=== PATIENT | female | born 1935 | race Caucasian/White ===

== ENCOUNTER 2020-10-21 11:33 | Outpatient (REF) | payer MEDICARE, SELFPAY | END 2020-10-21 11:34 | disposition home or self-care (01) | LOC: HO.LAB 11:33 | PROVIDERS: PCP Internal Medicine; Visit Provider Internal Medicine | DX: Z20.822 Contact with and (suspected) exposure to COVID-19 (principal) | CPT/HCPCS: 36415; C9803; U0003 ==

== ENCOUNTER 2020-12-02 12:53 | Outpatient (REF) | payer MEDICARE, SELFPAY ==
--- NOTE | ~2020-12-02 | MM_ITS ---
EXAMINATION: MM SCREENING DIGITAL BREAST TOMOSYNTHESIS, BILATERAL CLINICAL INFORMATION: Screening. Asymptomatic. The lifetime risk of breast cancer based on the Tyrer-Cuzick Model is 1%. COMPARISON: Mammography: 09/13/2019, 08/31/2018, 08/05/2017 TECHNIQUE: Digital breast tomosynthesis is performed in both the craniocaudal and mediolateral oblique views along with computer-aided detection (CAD). Synthesized 2D images are generated from the tomosynthesis. Additional left MLO view is provided. FINDINGS: There are scattered areas of fibroglandular density (ACR BI-RADS breast composition Category b). There are no significant masses, abnormal calcifications, or other abnormalities. There are 2 biopsy clip markers medial left breast. Parenchymal pattern is similar to prior studies. No significant changes. MM/MM tomosynthesis screening BI IMPRESSION: No mammographic evidence of malignancy. ASSESSMENT: BI-RADS 1: Negative RECOMMENDATION: Routine annual mammography screening. This patient's information was entered into a reminder system with a target due date for their next mammogram.
== END 2020-12-02 12:54 | disposition home or self-care (01) ==
LOC: HO.MAMMO 12:53
PROVIDERS: Visit Provider Internal Medicine
DX: Z12.31 Encounter for screening mammogram for malignant neoplasm of breast (principal)
CPT/HCPCS: 77063; 77067

== ENCOUNTER → 2021-06-20 09:11 | Outpatient (BNVA) | payer MEDICARE, SELFPAY | PROVIDERS: PCP Internal Medicine; Visit Provider Surgery | DX: N63.20 Unspecified lump in the left breast, unspecified quadrant (principal) | CPT/HCPCS: 99212 ==

== ENCOUNTER 2021-09-29 11:29 | Outpatient (REF) | payer MEDICARE, SELFPAY ==
[2021-09-29 16:11] LABS: CDiff Gene PCR NEGATIVE (Negative)
== END 2021-09-29 11:30 | disposition home or self-care (01) ==
LOC: HO.LAB 11:29
PROVIDERS: Visit Provider Internal Medicine
DX: R19.7 Diarrhea, unspecified (principal); K92.1 Melena
CPT/HCPCS: 36415; 87493

== ENCOUNTER 2021-10-07 07:28 | Outpatient (REF) | payer MEDICARE, SELFPAY ==
--- NOTE | ~2021-10-07 | CT_ITS ---
EXAMINATION: CT ABDOMEN AND PELVIS WITHOUT CONTRAST CLINICAL INFORMATION: Abdominal pain. COMPARISON: Pelvic ultrasound January 2018. TECHNIQUE: Multidetector volumetric imaging was performed from the superior aspect of the liver through the pubic symphysis. Sagittal and coronal reformatted images were obtained on the technologist's workstation. This CT examination was performed using dose optimization techniques as appropriate, variously including the following: *Automated exposure control *Adjustment of mA and/or kV according to patient size (this includes techniques or standardized protocols for targeted exams where dose is matched to indication/reason for exam; i.e. extremities or head) *Use of iterative reconstruction technique DLP: 482 mGy-cm FINDINGS: LUNG BASES: The visualized lung bases are unremarkable. LIVER, GALLBLADDER, AND BILIARY TREE: The liver is normal in size, shape, and attenuation. No focal hepatic lesion or biliary ductal dilatation is present. The gallbladder is unremarkable with no evidence of radiopaque gallstones, gallbladder wall thickening, or obvious pericholecystic inflammatory changes. PANCREAS: Unremarkable. SPLEEN: Unremarkable. ADRENAL GLANDS: Unremarkable. KIDNEYS AND URETERS: There is a small 2 mm stone in the mid right kidney. There is mild right hydronephrosis. The right ureter does not appear dilated. No right ureteral stone is seen. The left kidney is unremarkable. BLADDER: Not optimally distended. GASTROINTESTINAL TRACT: There is mild diverticulosis of the colon. No evidence of diverticulitis is seen. There is question of mild wall thickening/colitis of the colon, particularly involving the distal colon. The small and large bowel are otherwise unremarkable. The appendix is unremarkable. ABDOMINAL WALL: No significant hernia is appreciated. LYMPH NODES: Normal. VASCULAR: Unremarkable. PELVIC VISCERA: The left ovary appears prominent measuring 3.3 cm. There is question of a complex left ovarian cyst with thick echogenic wall. This is a new finding from previous ultrasound. The endometrium appears prominent measuring 6 to 7 mm. Endometrial thickening appears decreased compared to previous ultrasound. OSSEOUS STRUCTURES: There is a scoliosis and degenerative changes of the spine. CT/CT abdomen pelvis wo con IMPRESSION: Small right renal stone. Mild right hydronephrosis. No right ureteral dilatation or ureteral stone seen. Diverticulosis of the colon. Question mild colitis. Question 3 cm complex left adnexal cyst. This could be better evaluated with pelvic ultrasound. Prominent endometrium for a postmenopausal patient. This could be better evaluated with ultrasound as well. Fleischner guidelines were followed.
[2021-10-07] MEDS: Barium Sulfate Oral (Vanilla) 450 ML ORAL.SUSP 900 ML PO (10:18)
== END 2021-10-07 07:29 | disposition home or self-care (01) ==
LOC: HO.CT 07:28
PROVIDERS: PCP Internal Medicine; Visit Provider Internal Medicine
DX: R10.84 Generalized abdominal pain (principal)
CPT/HCPCS: 74176

== ENCOUNTER 2021-10-08 17:48 | Outpatient (REF) | payer MEDICARE, SELFPAY | END 2021-10-08 17:49 | disposition home or self-care (01) | LOC: HO.LNP 17:48 | PROVIDERS: Visit Provider Internal Medicine | DX: R10.9 Unspecified abdominal pain (principal); R19.7 Diarrhea, unspecified | CPT/HCPCS: 87045; 87046 ==

== ENCOUNTER 2021-10-21 15:07 | Outpatient (REF) | payer MEDICARE, SELFPAY ==
--- NOTE | ~2021-10-21 | US_ITS ---
EXAMINATION: US PELVIS CLINICAL INFORMATION: Followup thickened endometrium seen on CT scan. COMPARISON: Previous CT scan of the abdomen and pelvis 10/07/2021 and pelvic ultrasound January 2018 TECHNIQUE: Ultrasound of the pelvis is performed using both transabdominal and transvaginal transducers along with Doppler. Transvaginal imaging is performed due to inadequate visualization transabdominally. FINDINGS: The uterus is anteverted and measures 6.8 x 3.7 x 5 cm in dimension. No focal uterine lesion is seen. The endometrium appears abnormally thickened for a postmenopausal patient measuring up to 1.3 cm. This is heterogeneous with multiple small cystic areas. Previously, the endometrial thickness measured 1.9 cm and was homogeneous-appearing. No focal uterine lesion is seen. There are small nabothian cysts in the cervix. The right ovary measures 2.8 x 1.6 x 2.1 cm. There are 2 right ovarian cysts. There is a 1.6 x 1.1 x 1 cm simple ovarian cyst and a 1.7 x 1 x 1.6 cm slightly complex cyst with a septation. The left ovary measures 2.5 x 2.1 x 2.7 cm. There is a complex left ovarian cyst with several thickened septations and thickened wall. This measures approximately 1.7 x 2 x 2. There is no fluid in the pelvis. US/US pelvic and transvaginal IMPRESSION: Thickened heterogeneous-appearing endometrium. Bilateral complex ovarian cysts, left greater than right, new from previous exams. HAND TRUCKER consultation recommended.
== END 2021-10-21 15:08 | disposition home or self-care (01) ==
LOC: HO.HMGCX 15:07
PROVIDERS: PCP Internal Medicine; Visit Provider Internal Medicine
DX: R93.89 Abnormal findings on diagnostic imaging of other specified body structures (principal)
CPT/HCPCS: 76830; 76856

== ENCOUNTER 2021-12-04 10:48 | Outpatient (REF) | payer MEDICARE, SELFPAY ==
--- NOTE | ~2021-12-04 | MM_ITS ---
EXAMINATION: MM SCREENING DIGITAL BREAST TOMOSYNTHESIS, BILATERAL CLINICAL INFORMATION: Screening. Asymptomatic. COMPARISON: Mammography: 12/02/2020, 09/13/2019, 08/31/2018, 08/05/2017, 07/16/2016 TECHNIQUE: Digital breast tomosynthesis is performed in both the craniocaudal and mediolateral oblique views along with computer-aided detection (CAD). Synthesized 2D images are generated from the tomosynthesis. FINDINGS: There are scattered areas of fibroglandular density (ACR BI-RADS breast composition Category b). The left breast shows no significant changes from prior exams. There are 2 biopsy clip markers inner quadrant. Neither breast shows abnormal calcifications. The axilla and skin contours are unremarkable. The right breast has new oval lesion with incompletely defined margins posterior upper outer quadrant measuring approximately 0.9 x 0.7 cm. There may be small subtle satellite lesion inferior medial to the lesion. Patient will be recalled for additional imaging. MM/MM tomosynthesis screening BI IMPRESSION: 1. Right: New 0.9 cm oval lesion with incompletely defined margins posterior upper outer quadrant, possible smaller satellite lesion in this area. 2. Left: No mammographic evidence of malignancy. ASSESSMENT: BI-RADS 0: Incomplete - Need Additional Imaging Evaluation RECOMMENDATION: 1. Additional views of the right breast (spot exaggerated CC, spot MLO). 2. Targeted ultrasound right breast. 3. Radiology department staff will contact the patient for additional imaging. This patient's information was entered into a reminder system with a target due date for their next mammogram.
== END 2021-12-04 10:49 | disposition home or self-care (01) ==
LOC: HO.MAMMO 10:48
PROVIDERS: Absent Provider Surgery; PCP Internal Medicine; Visit Provider Internal Medicine
DX: Z12.31 Encounter for screening mammogram for malignant neoplasm of breast (principal)
CPT/HCPCS: 77063; 77067

== ENCOUNTER 2021-12-10 13:03 | Outpatient (REF) | payer MEDICARE, SELFPAY ==
--- NOTE | ~2021-12-10 | MM_ITS ---
EXAMINATION: MM DIAGNOSTIC DIGITAL BREAST TOMOSYNTHESIS, RIGHT US DIAGNOSTIC ULTRASOUND BREAST, RIGHT CLINICAL INFORMATION: Recall from screening for 0.9 cm oval lesion with incompletely defined margins posterior upper outer right breast with possible smaller satellite lesion. Age 86. Family history breast cancer, mother. COMPARISON: Mammography: 12/04/2021, 12/02/2020, 09/13/2019, 08/31/2018 TECHNIQUE: Digital breast tomosynthesis is performed. 2D images are generated from the tomosynthesis. The following views are obtained: Spot exaggerated CC, spot MLO. Ultrasound right breast is targeted to the posterior upper outer breast. Additional imaging also performed right axilla. Grayscale imaging and color Doppler are performed without and with harmonics. FINDINGS: There are scattered areas of fibroglandular density (ACR BI-RADS breast composition Category b). The additional views confirm a smooth 0.8 cm nodule posterior upper outer right breast representing change from prior studies. There is no additional satellite lesion in this area. No architectural abnormality. Ultrasound demonstrates an oval nodule 9:00 position 8-9 cm from nipple measuring approximately 0.9 x 0.7 x 0.6 cm. There is mild increased through-transmission of sound. Color flow is seen within the lesion consistent with solid lesion. No associated duct ectasia. No posterior shadowing. Additional imaging right axilla shows no lymphadenopathy. Results are discussed with the patient and her daughter at time of visit. Recommend ultrasound-guided core sampling of the nodule. MM/MM tomosynthesis added views R IMPRESSION: Nonspecific solid nodule posterior upper outer breast measuring approximately 0.9 cm. ASSESSMENT: BI-RADS 4: Suspicious RECOMMENDATION: Ultrasound-guided core biopsy nodule right breast.
== END 2021-12-10 13:04 | disposition home or self-care (01) ==
LOC: HO.MAMMO 13:03
PROVIDERS: Visit Provider Internal Medicine
DX: N63.11 Unspecified lump in the right breast, upper outer quadrant (principal)
CPT/HCPCS: 76642; 77061; 77065

== ENCOUNTER 2021-12-12 09:23 | Outpatient (REF) | payer MEDICARE, SELFPAY ==
--- NOTE | ~2021-12-12 | MM_ITS ---
PROCEDURE: US GUIDED BREAST BIOPSY, RIGHT CLINICAL INFORMATION: Hypoechoic mass 9:00 position 8 cm from the nipple right breast. COMPARISON: December 10, 2021 and December 04, 2021 PROCEDURAL DETAILS: The details of the procedure, as well as the risks, benefits, and alternatives to the procedure were explained to the patient in detail and all of her questions were answered, after which written informed consent was obtained. Site and side were confirmed. Prior to the procedure, sonography revealed a circumscribed hypoechoic lesion not o'clock position of the right breast. A time-out was performed, the lesion intended for biopsy was targeted, and the skin of the right breast was then prepped and draped in the usual sterile fashion. Using sonographic guidance, sterile technique, and 1% lidocaine without epinephrine for local anesthesia, multiple automated core biopsies were obtained through the targeted area with a 14G spring loaded Achieve core biopsy device. There was real-time confirmation of appropriate needle passage. Sampling was documented. At the completion of tissue sampling, a single butterfly-shaped metallic clip was deposited at the biopsy site. There was no evidence of immediate complication. SPECIMEN: An appropriate sample was obtained. DIGITAL POST-PROCEDURE MAMMOGRAPHY: Breast density: The tissue contains scattered areas of fibroglandular density. BI-RADS version 5, category B. There are no new mammographic findings demonstrated. The postprocedure 2-view direct digital mammogram reveals satisfactory positioning of the biopsy clip. The patient tolerated the procedure well and, after assuring adequate hemostasis, was discharged in good condition after reviewing postbiopsy breast care instructions. Final pathology results are pending. MM/MM diagnostic mammo unilat RT IMPRESSION: 1. No immediate complication from ultrasound-guided percutaneous biopsy right breast. 2. Ultrasound was used to localize and guide marker clip placement. 3. The 2-view direct digital postprocedure mammogram reveals satisfactory positioning of the biopsy clip. 4. Final pathology results are pending. A separate report with final recommendations will be issued once these results are made available.
[2021-12-12] MEDS: Lidocaine HCl 1 % 20 ML VIAL 10 ML SUBCUT (11:02)
[2021-12-12] MEDS: Sodium Bicarbonate 8.4% 50 MEQ/50 ML VIAL SUBCUT (11:03)
== END 2021-12-12 09:24 | disposition home or self-care (01) ==
LOC: HO.MAMMO 09:23
PROVIDERS: Visit Provider Surgery
DX: R92.8 Other abnormal and inconclusive findings on diagnostic imaging of breast (principal); N63.15 Unspecified lump in the right breast, overlapping quadrants
CPT/HCPCS: 19083; 77065; 88305; 88360; 99212

== ENCOUNTER 2021-12-29 08:36 | Day surgery (SDC) | payer MEDICARE, SELFPAY ==
--- NOTE | 2021-12-26 11:48 | P.CONAN_ITS ---
Documented by User: Shandra Hammond NP 12/26/21 11:49 HPI - Anesthesia Eval Consult details Narrative: 86yo F for Right Breast Lumpectomy/Needle Loc, [place] Node Biopsy PMFSH Active Problems Active Problems: All Active Problems (Updated 12/12/21 @ 09:05 by Mitchell Rothman MD) Abnormal ultrasound of breast (Acute) Left breast mass (Acute) Family History Family History Father Prostate cancer Mother Breast cancer Family/Other Breast cancer, Onset Age: 50 Surgical History Surgical History History of dilation and curettage History of left breast biopsy (05/06/12) History of lumpectomy of left breast (03/19/11) Social History Social History Alcohol intake: never Patient Tobacco Use Status: Never used Tobacco Use of substances other than those prescribed or required for medical reasons: No Are you DNR?: No Advance Directives: No Advance Directives Information Provided: Yes Meds Allergies Allergy/AdvReac Type Severity Reaction Status Date / Time adhesive tape Allergy Unknown rash Uncoded 12/29/21 09:31 Home Medications Medication Instructions Recorded Confirmed Last Taken Type atenolol 50 mg tablet 50 mg PO DAILY 06/20/21 12/12/21 12/29/21 07:00 History atorvastatin 10 mg tablet 10 mg PO DAILY 06/20/21 12/12/21 12/29/21 07:00 History lisinopril 10 mg tablet 10 mg PO DAILY 06/20/21 12/12/21 12/29/21 07:00 History Exam Exam Date and Time: December 26, 2021 114 Assessment and Plan Assessment Anesthesia Assessment: Chart Reviewed Documented by User: Nimesh Shelby MD 12/29/21 13:16 PMFSH Family History Family History Father Prostate cancer Mother Breast cancer Family/Other Breast cancer, Onset Age: 50 Family history of problems with anesthesia: No Surgical History Surgical History History of dilation and curettage History of left breast biopsy (05/06/12) History of lumpectomy of left breast (03/19/11) History of Problems with Anesthesia: No Social History Social History Alcohol intake: never Patient Tobacco Use Status: Never used Tobacco Use of substances other than those prescribed or required for medical reasons: No Are you DNR?: No Advance Directives: No Advance Directives Information Provided: Yes Meds Allergies Allergy/AdvReac Type Severity Reaction Status Date / Time adhesive tape Allergy Unknown rash Uncoded 12/29/21 09:31 Home Medications Medication Instructions Recorded Confirmed Last Taken Type atenolol 50 mg tablet 50 mg PO DAILY 06/20/21 12/12/21 12/29/21 07:00 History atorvastatin 10 mg tablet 10 mg PO DAILY 06/20/21 12/12/21 12/29/21 07:00 History lisinopril 10 mg tablet 10 mg PO DAILY 06/20/21 12/12/21 12/29/21 07:00 History Exam Airway Mallampati Class: II TM Dist: >3cm Neck ROM: Full Loose/Missing/Broken Teeth: No Heart: [id number] Lungs: cta b/l Assessment and Plan Assessment Anesthesia Assessment: Anesthesia Plan Discussed Final Anesthetic Review Family History of Problems with Anesthesia: No History of Problems with Anesthesia: No NPO: Yes ASA Class: III Final Preanesthetic Review: No Changes in Pt Med Stat, Meds/Allgs Chart Reviewed, Consent Obtained/Reviewed and Anes Risks/Benef Reviewed Patient Risk: Intermediate Procedure Risk: Low Assessment/Block/Sedation in SS: Assess/Block/Sedation-SS Anesthetic Plan Anesthetic Plan: GA and Agree w/ Assess. and Plan Disposition: Standard PACU
[2021-12-29] VITALS (7 sets, daily range): BP systolic 138–188; BP diastolic 63–77; PULSE 47–62; RESP 16; TEMP 36.3; O2SAT 95–99; BMI 33.0
--- NOTE | ~2021-12-29 | NM_ITS ---
PROCEDURE: NM LYMPH SCINTIGRAPHY CLINICAL INFORMATION: Right breast mucinous carcinoma. COMPARISON: None TECHNIQUE: Following explaining right breast lymph node procedure, benefits and risk, a written consent was obtained from the patient. 4% lidocaine cream was applied around the right breast areola 30 minutes prior to the procedure. Patient arrived in nuclear medicine department. The area around the right breast was cleaned in usual sterile manner. 4 vials of 0.125 mL Lymphoseek was injected in 4 quadrants around the right breast areola and imaging obtained approximately 30 minutes later. Patient tolerated procedure extremely well. FINDINGS: There are 4 areas of isotope activity in the 4 quadrants around the right breast areola. There is dominant solitary lymph node activity seen in the right axilla. There are additional small areas of activity seen in the right anterior axilla. NM/NM sentinel node w imaging IMPRESSION: Right breast lymphoscintigraphy reveals a dominant sentinel node right anterior axilla and several smaller areas of activity in the right axilla.
--- NOTE | ~2021-12-29 | MM_ITS ---
EXAMINATION: MM MAMMOGRAM GUIDED NEEDLE LOCALIZATION BREAST, RIGHT MM NEEDLE LOCALIZATION SPECIMEN FROM THE RIGHT BREAST CLINICAL INFORMATION: Recent diagnosis mucinous carcinoma posterior upper outer right breast. COMPARISON: 12/04/2021, 12/10/2021, 12/12/2021; ultrasound right breast 12/10/2021, ultrasound-guided biopsy right breast 12/12/2021. TECHNIQUE NEEDLE LOC: Proper informed consent is obtained from the patient after discussion of the procedure, potential risks and complications, and alternatives including declining the procedure today. Patient was given an opportunity for questions. The patient appeared to understand. The patient consented to the procedure and signed the consent form. GUIDANCE: Digital mammography. APPROACH: Lateral Medial. TARGET: Nodule with HydroMARK butterfly clip marker.. ANESTHESIA: Carbonated lidocaine 1%: 5 mL. LOCALIZATION MARKER: [place] MammaLok. 5 cm length. The skin is prepped and local anesthesia administered. The needle is positioned and position assessed with mammography. The wire is hooked into position. Nash needle protector placed. The patient tolerated the procedure well and had no immediate complication. Following the procedure, 4% lidocaine ointment was administered to the right areola and covered with Tegaderm in anticipation of nuclear lymphoscintigraphy injection for sentinel lymph node mapping, described in separate report. Preliminary procedure results called to medical assistant internal medicine (Tete) for Dr. Rothman. TECHNIQUE SPECIMEN RADIOGRAPH: Imaging of the excised specimen is performed using digital mammography in 1 view. FINDINGS SPECIMEN RADIOGRAPH: The specimen shows the needle and hookwire are delivered intact. The biopsy clip marker is identified in the specimen adjacent to the localization needle/wire. Results were called to Dr. Mitchell Rothman in the operating room at the time of imaging. MM/MM needle loc RT IMPRESSION: 1. Status post right breast needle localization with wire hooked into position. 2. Post operative specimen radiograph obtained.
[2021-12-29] MEDS: Lactated Ringers 1,000 ML 100 ML IVCONT (10:16)
--- NOTE | 2021-12-29 10:49 | MHC.SHP ---
Pre-Procedural Eval Section A Date of Service: 12/29/21 The patient is an INPATIENT: No Changes since office visit: Yes Patient answered all questions; No Cold of Flu in the past 2 weeks, No New Medical Problems and No Changes in Medication The History & Physical has been completed within 30 days and I have reviewed it.: Yes Section B Chief Complaint: Malignant neoplasm site of right breast Allergies: Allergies Allergy/AdvReac Type Severity Reaction Status Date / Time adhesive tape Allergy Unknown rash Uncoded 12/29/21 09:31 Plan Diagnosis/Plan: Unchanged I have reviewed the history and physical and performed a pertinent physical examination on my patient. No changes have occurred unless specified.
[2021-12-29] MEDS: Lidocaine HCl 1 % 20 ML VIAL 9 ML SUBCUT (11:18)
[2021-12-29] MEDS: Sodium Bicarbonate 8.4% 50 MEQ/50 ML VIAL SUBCUT (11:18)
--- NOTE | 2021-12-29 14:37 | W.PM.OPN ---
Operative Note Operative Note Date of Service: 12/29/21 Narrative: Preoperative diagnosis:Mucinous carcinoma right breast Postoperative diagnosis: same Procedure: right breast lumpectomy with needle localization, sentinel node biopsy right axilla Surgeon: Mitchell Rothman MD Supervisor Pipe Finishing: Abiola Oneill PA-C Anesthesia: general LMA Indications for procedure: 86-year-old female patient found to have a small density in the upper outer quadrant of the right breast felt to be suspicious for malignancy. Subsequent ultrasound guided core biopsy confirmed a mucinous carcinoma a right breast. She presents today for right breast lumpectomy with needle localization, right axillary sentinel node biopsy. Operative findings: Specimen x-ray confirms the marking clip within the specimen. Gross pathology confirmed the tumor within the specimen with negative margins. Specimen: 1. Right breast lumpectomy, 2. [place] node 1, 3. Anterior margin right breast Estimated blood loss: 5 mL Complications: none Procedure details: patient was brought to the OR placed in a supine position. After administering general anesthesia the patient's right breast was prepped with ChloraPrep and draped in a sterile fashion. A surgical time-out was called the consent confirmed. Patient received preoperative antibiotics and Venodyne boots were in place. Local anesthesia consisting of 0.5% Sensorcaine was then infiltrated around the localizing needle in the upper outer quadrant. A curvilinear incision was made to include the needle track in the upper outer quadrant. This incision was then carried down through subcutaneous tissue. Superior inferior skin flaps were then created with electrocautery. A core of tissue surrounding the localizing needle was then performed beginning at the superior margin, anterior margin, medial margin, inferior margin, lateral margin, then posterior margin. Lesion was marked and sent to pathology for further examination. An additional anterior margin was obtained and sent as a separate specimen as the marking clip appeared very close to the margin. Using the gamma probe area of activity was noted in the axilla. This was very close to the initial breast incision. Dissection was continued into the axilla past the clavipectoral fascia. An area of increased activity was identified and grasped with an Allis clamp. This was then excised using electrocautery. This had have counts of approximately 1200 and was sent as sentinel node 1. Examination of the axilla revealed no other radio activity. No other palpable nodes could be identified. Axilla was examined up into the level 2 nodes. Once confirmation was received from the pathology department at the margins were clear, the wounds were irrigated with saline solution and suctioned dry. Wounds were checked for hemostasis. the clavipectoral fascia was then reapproximated using interrupted 3-0 Polysorb sutures. Deep breast tissue was also reapproximated using interrupted 3-0 Polysorb sutures. Skin dermis was then reapproximated using interrupted 3-0 Polysorb sutures. Skin was then reapproximated in a subcuticular fashion using a running 4-0 Polysorb suture. Sterile dressings consisting of Steri-Strips, 2 x 2 gauze and Tegaderm were then applied. The patient tolerated the procedure well. Sponge, instrument, and needle counts reported as correct. The patient was transferred to PACU in stable condition.
== END 2021-12-29 16:16 | disposition home or self-care (01) ==
PROVIDERS: PCP Internal Medicine; Visit Provider Surgery
PROC: (CPT 19301; principal; 2021-12-29 13:10)
PROC: (CPT 19301; 2021-12-29 13:10)
DX: C50.411 Malignant neoplasm of upper-outer quadrant of right female breast (principal); Z17.0 Estrogen receptor positive status [ER+]; Z91.040 Latex allergy status; Z86.018 Personal history of other benign neoplasm; Z98.890 Other specified postprocedural states; Z79.899 Other long term (current) drug therapy
CPT/HCPCS: 19301; 38525; 19281; 78195; 88305; 88307; 88329; 88342; A4648; A9520; J0131; J0690; J1100; J2405; J3010

== ENCOUNTER → 2022-01-01 15:00 | Outpatient (BNVA) | payer MEDICARE, SELFPAY | PROVIDERS: Visit Provider Surgery | DX: Z13.89 Encounter for screening for other disorder (principal) | CPT/HCPCS: 99211 ==

== ENCOUNTER → 2022-01-06 13:09 | Outpatient (BNVA) | payer MEDICARE, SELFPAY | PROVIDERS: PCP Internal Medicine; Referring Provider Internal Medicine; Visit Provider Surgery | DX: C50.911 Malignant neoplasm of unspecified site of right female breast (principal); Z98.890 Other specified postprocedural states | CPT/HCPCS: 99212 ==

== ENCOUNTER → 2022-01-13 12:52 | Outpatient (BNV) | payer MEDICARE, SELFPAY | PROVIDERS: PCP Internal Medicine; Referring Provider Surgery; Visit Provider Internal Medicine | DX: C50.911 Malignant neoplasm of unspecified site of right female breast (principal); Z79.811 Long term (current) use of aromatase inhibitors; C64.1 Malignant neoplasm of right kidney, except renal pelvis | CPT/HCPCS: 99204; 99213; 99214; G2211 ==

== ENCOUNTER 2022-01-28 09:01 | Outpatient (REF) | payer MEDICARE, SELFPAY ==
--- NOTE | ~2022-01-28 | MM_ITS ---
EXAMINATION: BONE DENSITOMETRY CLINICAL INDICATION: Osteoporosis. COMPARISON: Baseline BD dated 07/25/2009. TECHNIQUE: Using a [employer] DXA System (software version: 13.1) manufactured by [employer], dual-energy x-ray absorptiometry was performed of the lumbar spine and left hip. The images are of good technical quality. Summary results are attached. FINDINGS: AP SPINE L1-L4 (excluding L2 and L3): The data of L1-L4 has been changed to exclude the L2 and L3 vertebral bodies because degenerative changes at these levels may cause overestimation of the lumbar spine density. AP SPINE L1-L4 (L2, L3): Current: BMD 1.376 g/cm2, Z-score 3.2, T-score 1.8, normal, 14.3% increase from baseline (<5% change is not significant). Baseline: BMD 1.204 g/cm2. LEFT FEMUR, NECK: Current: BMD 0.946 g/cm2, Z-score 1.4, T-score -0.7, normal. Baseline: BMD 0.924 g/cm2. LEFT FEMUR, TOTAL: Current: BMD 1.027 g/cm2, Z-score 2.1, T-score 0.2, normal, 5.6% decrease from baseline (<5% change is not significant). Baseline: BMD 1.088 g/cm2. IDENTIFIED RISK FACTORS: Menopause. HISTORY OF FRACTURE: None listed. MEDICATIONS: Vitamin D. MM/XR DEXA axial skeleton IMPRESSION: 1. DIAGNOSIS: Normal bone density based on the lowest T-score value of -0.7 in the femoral neck applying World Health Organization criteria. 2. 10-YEAR FRACTURE RISK PREDICTION, FRAX: According to the guidelines, FRAX calculation should only be performed on patients in the osteopenia bone density category. Therefore, FRAX was not performed on this patient. 3. Treatment Recommendations: NOF guidelines recommend consideration for treatment in postmenopausal women and men age 50 and older presenting with the following: -A hip or vertebral (clinical or morphometric) fracture. -T-score less than or equal to -2.5 at the femoral neck or spine after appropriate evaluation to exclude secondary causes. -Low bone mass at the hip or spine and a 10-year fracture probability by FRAX of greater than or equal to 3% for hip fracture or greater than or equal to 20% for major osteoporotic fracture based on the [place] adapted WHO algorithm. 4. Other Recommendations: All treatment decisions require clinical judgment and consideration of individual patient factors, including patient preferences, comorbidities, previous drug use, risk factors not captured in the FRAX model (e.g. frailty, falls, vitamin D deficiency, increased bone turnover, interval significant decline in bone density) and possible under or overestimation of fracture risk by FRAX. FUTURE SCAN RECOMMENDATION: People with diagnosed cases of osteoporosis or at high risk for fracture should have regular bone mineral density tests. For patients eligible for Medicare, routine testing is allowed once every 2 years. The testing frequency can be increased to one year for patients who have rapidly progressing disease, those who are receiving or discontinuing medical therapy to restore bone mass, or have additional risk factors.
== END 2022-01-28 09:02 | disposition home or self-care (01) ==
LOC: HO.MAMMO 09:01
PROVIDERS: Visit Provider Internal Medicine
DX: Z13.820 Encounter for screening for osteoporosis (principal); Z78.0 Asymptomatic menopausal state; M81.0 Age-related osteoporosis without current pathological fracture
CPT/HCPCS: 77080

== ENCOUNTER → 2022-02-05 13:03 | Outpatient (BNVA) | payer MEDICARE, SELFPAY | PROVIDERS: PCP Internal Medicine; Referring Provider Internal Medicine; Visit Provider Surgery | DX: Z48.3 Aftercare following surgery for neoplasm (principal); C50.911 Malignant neoplasm of unspecified site of right female breast; Z90.11 Acquired absence of right breast and nipple | CPT/HCPCS: 99212 ==

== ENCOUNTER → 2022-06-04 10:17 | Outpatient (BNVA) | payer MEDICARE, SELFPAY | PROVIDERS: PCP Internal Medicine; Visit Provider Surgery | DX: C50.911 Malignant neoplasm of unspecified site of right female breast (principal) | CPT/HCPCS: 99212 ==

== ENCOUNTER 2022-10-29 10:53 | Outpatient (REF) | payer MEDICARE, SELFPAY ==
[2022-10-29 12:06] LABS: Anion Gap 11 (12-20); Blood Urea Nitrogen 36 mg/dL (9-16); Calcium 9.7 mg/dL (8.4-10.2); Carbon Dioxide 34 mmol/L (22-29); Chloride 101 mmol/L (96-108); Estimated Glomerular Filt Rate 32; Potassium 4.1 mmol/L (3.3-5.1); Sodium 142 mmol/L (135-145)
== END 2022-10-29 10:54 | disposition home or self-care (01) ==
LOC: HO.LAB 10:53
PROVIDERS: PCP Internal Medicine; Visit Provider Student in an Organized Health Care Education/Training Program
DX: I12.9 Hypertensive chronic kidney disease with stage 1 through stage 4 chronic kidney disease, or unspecified chronic kidney disease (principal); N18.31 Chronic kidney disease, stage 3a
CPT/HCPCS: 36415; 80051; 82310; 82565; 84520

== ENCOUNTER → 2022-12-01 15:38 | Outpatient (BNVA) | payer MEDICARE, SELFPAY | PROVIDERS: PCP Internal Medicine; Visit Provider Surgery | DX: C50.411 Malignant neoplasm of upper-outer quadrant of right female breast (principal); Z98.890 Other specified postprocedural states | CPT/HCPCS: 99212 ==

== ENCOUNTER 2022-12-31 13:39 | Outpatient (REF) | payer MEDICARE, SELFPAY ==
--- NOTE | ~2022-12-31 | MM_ITS ---
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 COMPARISON: Mammography 12/29/2021, 12/12/2021, 12/10/2021, 12/04/2021, 12/02/2020, 09/13/2019, 08/31/2018. TECHNIQUE: Digital breast tomosynthesis is performed in both the craniocaudal and mediolateral oblique views along with computer-aided detection (CAD). Synthesized 2D images are generated from the tomosynthesis. Additional magnification right CC, magnification right ML, magnification right MLO views are obtained. FINDINGS: There are scattered areas of fibroglandular density (ACR BI-RADS breast composition Category b). There are minor post therapy changes posterior upper outer right breast. Left breast has 2 biopsy clip markers mid and posterior inner quadrant. There is no significant mass or architectural abnormality or abnormal calcifications. No significant changes. Results are provided to the patient at time of visit by the technologist. MM/MM tomosynthesis diagnostic BI IMPRESSION: No mammographic evidence of malignancy. ASSESSMENT: BI-RADS 2: Benign RECOMMENDATION: Annual bilateral mammography. This patient's information was entered into a reminder system with a target due date for their next mammogram.
== END 2022-12-31 13:40 | disposition home or self-care (01) ==
LOC: HO.MAMMO 13:39
PROVIDERS: PCP Internal Medicine; Visit Provider Surgery
DX: C50.411 Malignant neoplasm of upper-outer quadrant of right female breast (principal)
CPT/HCPCS: 77062; 77066

== ENCOUNTER 2023-02-05 10:49 | Outpatient (REF) | payer MEDICARE, SELFPAY ==
[2023-02-05 12:50] LABS: Anion Gap 13 (12-20); Blood Urea Nitrogen 30 mg/dL (9-16); Calcium 9.5 mg/dL (8.4-10.2); Carbon Dioxide 29 mmol/L (22-29); Chloride 106 mmol/L (96-108); Estimated Glomerular Filt Rate 33; Potassium 4.2 mmol/L (3.3-5.1); Sodium 144 mmol/L (135-145)
== END 2023-02-05 10:50 | disposition home or self-care (01) ==
LOC: HO.LAB 10:49
PROVIDERS: Visit Provider Student in an Organized Health Care Education/Training Program
DX: N18.31 Chronic kidney disease, stage 3a (principal)
CPT/HCPCS: 36415; 80051; 82310; 82565; 84520

== ENCOUNTER 2023-03-16 12:55 | Outpatient (REF) | payer MEDICARE, SELFPAY ==
[2023-03-16 14:31] LABS: Anion Gap 14 (12-20); Blood Urea Nitrogen 54 mg/dL (9-16); Calcium 9.2 mg/dL (8.4-10.2); Carbon Dioxide 24 mmol/L (22-29); Chloride 106 mmol/L (96-108); Estimated Glomerular Filt Rate 25; Potassium 4.4 mmol/L (3.3-5.1); Sodium 140 mmol/L (135-145)
== END 2023-03-16 12:56 | disposition home or self-care (01) ==
LOC: HO.LAB 12:55
PROVIDERS: PCP Internal Medicine; Visit Provider Student in an Organized Health Care Education/Training Program
DX: N18.31 Chronic kidney disease, stage 3a (principal)
CPT/HCPCS: 36415; 80051; 82310; 82565; 84520

== ENCOUNTER 2023-04-16 09:12 | Outpatient (REF) | payer MEDICARE, SELFPAY ==
[2023-04-16 11:27] LABS: MANUAL DIFF FLAG NO
[2023-04-16 11:43] LABS: Basophils Percent Auto 0.5 % (0-2); Eosinophils Absolute Auto 0.1 X10*3/uL (0.0-0.4); Eosinophils Percent Auto 2.3 % (0-4); Hematocrit 39.4 % (37.0-47.0); Hemoglobin 12.2 g/dl (12.0-16.0); Imm Gran Abs Auto 0.05 X10*3/uL (0.00-0.03); Imm Gran Pct Auto 0.9 % (0.0-0.4); Lymphocytes Absolute Auto 1.5 X10*3/uL (1.2-4.9); Lymphocytes Percent Auto 25.4 % (20-40); Mean Corpuscular Hemoglobin 29.3 pg (27.0-33.0); Mean Corpuscular Volume 94.5 fL (80.0-98.0); Mean Platelet Volume 11.1 fL (9.4-12.3); Monocytes Absolute Auto 0.6 X10*3/uL (0.1-1.2); Monocytes Percent Auto 10.2 % (2-11); Neutrophils Absolute Auto 3.5 x10*3/uL (2.0-8.3); Neutrophils Percent Auto 60.7 % (45-73); Platelet Count 181 X10*3/uL (160-400); Red Blood Count 4.17 X10*6/uL (4.20-5.50); Red Cell Distribution Width 14.4 % (11.0-16.0); White Blood Count 5.7 X10*3/uL (4.8-10.8)
[2023-04-16 12:12] LABS: Alanine Aminotransferase 11 U/L (0-31); Albumin Level 3.9 g/dL (3.5-5.0); Alkaline Phosphatase 64 U/L (39-117); Anion Gap 14 (12-20); Aspartate Amino Transferase 14 U/L (5-31); Bilirubin Direct 0.2 mg/dL (0.0-0.5); Bilirubin Total 0.6 mg/dL (0.0-1.0); Blood Urea Nitrogen 39 mg/dL (9-16); Carbon Dioxide 25 mmol/L (22-29); Chloride 107 mmol/L (96-108); Cholesterol 168 mg/dL; Estimated Glomerular Filt Rate 36; Glucose Fasting 126 mg/dL (60-99); HDL Cholesterol 35 mg/dL; LDL Cholesterol Calculated 89 mg/dl; Potassium 4.1 mmol/L (3.3-5.1); Sodium 142 mmol/L (135-145); Total Protein 6.9 g/dL (6.5-8.0); Triglycerides 223 mg/dL
== END 2023-04-16 09:13 | disposition home or self-care (01) ==
LOC: HO.HMGCLDS 09:12
PROVIDERS: PCP Internal Medicine; Visit Provider Internal Medicine
DX: R53.83 Other fatigue (principal); E78.5 Hyperlipidemia, unspecified
CPT/HCPCS: 36415; 80051; 80061; 80076; 82565; 82947; 84520; 85025

== ENCOUNTER 2023-04-21 12:48 | Outpatient (REF) | payer MEDICARE, SELFPAY | END 2023-04-21 12:49 | disposition home or self-care (01) | LOC: HO.LAB 12:48 | PROVIDERS: PCP Internal Medicine; Visit Provider Internal Medicine | DX: E11.9 Type 2 diabetes mellitus without complications (principal) | CPT/HCPCS: 36415; 83036 ==

== ENCOUNTER 2023-04-23 08:42 | Outpatient (REF) | payer MEDICARE, SELFPAY ==
--- NOTE | ~2023-04-23 | US_ITS ---
EXAMINATION: US RETROPERITONEAL LIMITED (RENAL ONLY) CLINICAL INFORMATION: CKD stage 3a, follow up lesion of right kidney. COMPARISON: CT abdomen and pelvis without contrast 10/07/2021. TECHNIQUE: Real-time imaging of the kidneys. FINDINGS: RIGHT KIDNEY: 11.2 x 5.0 x 5.1 cm (SAG x AP x TRV). The kidney is normal in size, contour, and echogenicity. Renal cortical thickness is normal. No hydronephrosis. 0.6 x 0.5 x 0.4 cm nonobstructing calculus is seen in the upper pole. 0.7 x 1.1 x 0.7 cm cortical nonshadowing echogenic focus in the lower pole may represent an angiomyolipoma. 2.7 x 3.4 x 2.2 cm hypoechoic focus in the mid kidney is concerning for renal mass, less likely a Column of Nikhil. Extrarenal pelvis also likely seen. LEFT KIDNEY: 11.0 x 4.2 x 4.8 cm (SAG x AP x TRV). The kidney is normal in size, contour, and echogenicity. Renal cortical thickness is normal. No renal calculi or hydronephrosis. 1.7 x 1.5 x 2.1 cm simple lower pole cyst is seen; no imaging follow-up of this finding is recommended. US/US renal BI IMPRESSION: 1. 0.6 cm nonobstructing calculus in the upper pole of the right kidney. 2. 1.1 cm cortical nonshadowing echogenic focus in the lower pole of the right kidney may represent an angiomyolipoma. 3. 3.4 CM HYPOECHOIC FOCUS IN THE MID RIGHT KIDNEY IS CONCERNING FOR A RENAL MASS, LESS LIKELY A COLUMN OF NIKHIL. MRI SCAN COULD BE OBTAINED FOR FURTHER EVALUATION.
== END 2023-04-23 08:43 | disposition home or self-care (01) ==
LOC: HO.US 08:42
PROVIDERS: PCP Internal Medicine; Visit Provider Student in an Organized Health Care Education/Training Program
DX: N18.31 Chronic kidney disease, stage 3a (principal)
CPT/HCPCS: 76775

== ENCOUNTER 2023-05-28 10:56 | Outpatient (REF) | payer MEDICARE, SELFPAY ==
[2023-05-28 12:56] LABS: Anion Gap 12 (12-20); Blood Urea Nitrogen 44 mg/dL (9-16); Calcium 9.8 mg/dL (8.4-10.2); Carbon Dioxide 28 mmol/L (22-29); Chloride 107 mmol/L (96-108); Estimated Glomerular Filt Rate 28; Iron 72 mcg/dL (30-160); Percent Iron Saturation 37 % (15-50); Potassium 4.3 mmol/L (3.3-5.1); Sodium 143 mmol/L (135-145); Total Iron Binding Capacity 194 mcg/dL (228-428); Unsaturated Iron Binding 122 ug/dL
[2023-05-28 13:11] LABS: Ferritin 463 ng/mL (10-250)
[2023-05-31 12:04] LABS: Calcium (PTHI) 9.5 mg/dL (8.6-10.4); PTHI 105 pg/mL (16-77)
== END 2023-05-28 10:57 | disposition home or self-care (01) ==
LOC: HO.LAB 10:56
PROVIDERS: Visit Provider Internal Medicine Nephrology
DX: I12.9 Hypertensive chronic kidney disease with stage 1 through stage 4 chronic kidney disease, or unspecified chronic kidney disease (principal); N18.31 Chronic kidney disease, stage 3a; N28.89 Other specified disorders of kidney and ureter
CPT/HCPCS: 36415; 80051; 82310; 82565; 82728; 83540; 83970; 84520

== ENCOUNTER 2023-06-01 13:35 | Outpatient (AMB) | payer MEDICARE, SELFPAY ==
--- NOTE | 2023-06-01 13:39 | MHC.OFFVIS ---
Intake Vital Signs 06/01/23 13:53 Height 5 ft 1 in Weight 189 lb BMI 35.7 BP 160/82 H Blood Pressure Location Lt brachial Position Sitting Intake Visit Reasons: 6 month right breast lumpectomy Intake Note: Patient is seen in office for 6 month follow up visit, breast exam. Patient c/o: denies any concerns at the time of visit Diabetes Trainer Required: No Accompanied by: Self / Same As Patient Allergies adhesive tape Allergy (Unknown, Uncoded 06/01/23 13:42) rash Medication List - Last Reconciled 06/01/23 by Mitchell Rothman MD ascorbic acid (vitamin C) (Vitamin C) 1 g PO DAILY atenolol 50 mg PO DAILY atorvastatin 10 mg PO DAILY cholecalciferol (vitamin D3) (Vitamin D3) 50 mcg PO DAILY ferrous sulfate 325 mg PO BID letrozole 2.5 mg PO DAILY lisinopril-hydrochlorothiazide 20-12.5 mg 1 tab PO DAILY HPI HPI Comments History of Present Illness Details Blanca Carlisle is an 87 year old female, patient of Dr. Ruiz, and former patient of Dr. Hodge,?found on screening mammogram and ultrasound of 12/10/2021 to have a nodule in the right breast at the upper outer quadrant. ? 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 She underwent a right breast lumpectomy with sentinel node biopsy on 12/29/2021. Pathology revealed a mucinous carcinoma, grade 2, 0.9 cm, with negative margins (pT1b N0 (sn) (i-), 0 of 2 lymph nodes with metastatic carcinoma. She was evaluated by Dr. Lewis and started on letrozole. She was referred to Radiation Oncology (Dr. Ramirez) at [facility]. She has decided to declined radiation therapy. 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 During the workup an ultrasound identified two masses in the left breast. An ultrasound dated April 08, 2012 showed a slight increase in size of both of the lesions. An US guided biopsy of both of these lesions identifying fatty tissue consistent with angiolipomas.? Her family history is positive for her mother having breast cancer. She feels well and denies any new breast symptoms. Her most recent mammogram of 12/31/2022 revealed no mammographic evidence of malignancy (BI-RADS 2). Follow-up mammogram in 1 year is recommended. [facility] Medical History Mucinous carcinoma of right breast Surgical History History of dilation and curettage History of left breast biopsy (05/06/12) History of lumpectomy of right breast Family History Father Prostate cancer Mother Breast cancer Family/Other Breast cancer, Onset Age: 50 Paternal Aunt Breast cancer Social History Household Members: None Housing: House Are you a primary special needs child caregiver to a significant other at home: No Do you presently have visiting nurse or other home services: No Alcohol intake: never Patient Tobacco Use Status: Never used Tobacco service: No Current occupational status: retired Review of Systems Const All systems reviewed & are unremarkable except as noted in HPI and below Card Denies chest pain, Denies rapid heart rate, Denies irregular heart rhythm and Denies dyspnea Resp Denies cough, Denies hemoptysis and Denies dyspnea GI Denies abdominal pain Denies nipple discharge Skin/Breast Denies breast swelling, Denies breast skin changes, Denies breast pain, Reports breast mass, Denies change in breast shape and Denies nipple discharge Physical Exam Const General: no acute distress and well developed Nutritional Appearance: well nourished Orientation/consciousness: patient oriented x3 Limitations: no limitations Chest Other: Right breast: Incision in right breast is clean, dry, and intact without hematoma or seroma. No new skin change, nipple retraction, palpable mass, or enlarged lymph nodes are appreciated. Left breast: No new skin change, nipple discharge, nipple retraction, palpable mass, or enlarged lymph nodes are appreciated. Chest/axillae images: 1. Incision right breast with some volume loss Resp Other: breathing comfortably on room air, no shortness of breath Skin Other: warm, dry, no rash Neuro General: patient oriented x3 Extrem Other: no edema Assessment & Plan Assessment & Plan (1) Mucinous carcinoma of right breast: Code(s): C50.911 - Malignant neoplasm of unspecified site of right female breast Plan 87-year-old female patient returning for follow-up examination after a lumpectomy and sentinel node biopsy for a mucinous carcinoma right breast. She feels well and denies any new breast symptoms. Examination today reveals no suspicious findings in either breast. She will be due for a yearly mammogram in December 2023. She should follow up in 6 months for routine breast examination. She is welcome to call sooner for any new concerns. She will continue to follow up with Dr. Lewis. Coding Level of Care Code Est Pt Level 3 (04709) Diagnoses Mucinous carcinoma of right breast C50.911
[2023-06-01 13:53] VITALS: BP 160/82; BMI 35.7
== END 2023-06-01 14:06 | disposition home or self-care (01) ==
PROVIDERS: PCP Internal Medicine; Visit Provider Surgery
DX: C50.411 Malignant neoplasm of upper-outer quadrant of right female breast (principal)
CPT/HCPCS: 99213

== ENCOUNTER → 2023-06-01 13:35 | Outpatient (BNVA) | payer MEDICARE, SELFPAY | PROVIDERS: PCP Internal Medicine; Visit Provider Surgery | DX: C50.911 Malignant neoplasm of unspecified site of right female breast (principal); Z98.890 Other specified postprocedural states | CPT/HCPCS: 99212 ==

== ENCOUNTER 2023-06-28 10:48 | Outpatient (REF) | payer MEDICARE, SELFPAY ==
--- NOTE | ~2023-06-28 | MR_ITS ---
EXAMINATION: MR ABDOMEN WITHOUT AND WITH CONTRAST CLINICAL INFORMATION: Chronic kidney disease, renal mass COMPARISON: Renal ultrasound 04/23/2023 TECHNIQUE: MRI of the abdomen before and after the IV administration of 8.5 mL of Gadavist was obtained using routine sequences. FINDINGS: LUNG BASES: The visualized lung bases are unremarkable. KIDNEYS AND URETERS: Bosniak 1 benign-appearing bilateral renal cysts, no imaging follow-up recommended. A 2.3 x 2.0 x 1.8 cm heterogeneously enhancing mass in the right mid renal pole which protrudes into the renal pelvis. GALLBLADDER: Unremarkable. LIVER AND BILIARY TREE: Mild loss of signal on opposed phase imaging compatible with hepatic steatosis. No intra or extrahepatic biliary duct dilatation. PANCREAS: Unremarkable SPLEEN: Unremarkable ADRENAL GLANDS: Unremarkable GASTROINTESTINAL TRACT: Colonic diverticulosis without evidence of diverticulitis. LYMPH NODES: No lymphadenopathy. VASCULAR: 2 right renal veins appear patent. 2 right renal arteries appear patent. ABDOMINAL WALL: Unremarkable. OSSEOUS STRUCTURES: Dextroconvex curvature of the thoracic spine with multilevel degenerative disc disease. MR/MR abdomen wo/w con IMPRESSION: 1. A 2.3 cm heterogeneously enhancing mass in the right mid renal pole which protrudes into the renal pelvis, suspicious for renal cell carcinoma. 2 right renal veins and 2 right renal arteries appear patent. 2. Mild hepatic steatosis. The findings and recommendations were discussed with Fer Fletcher MD, covering physician for ordering provider Jazzmine Bolanos by telephone at 06/30/2023 11:04 AM and it was ascertained that the content and urgency of the report was understood at the time of direct communication.
[2023-06-28] MEDS: gadobutroL 10 ML VIAL IVPUSH (11:52)
== END 2023-06-28 10:49 | disposition home or self-care (01) ==
LOC: HO.MRI 10:48
PROVIDERS: PCP Internal Medicine; Visit Provider Internal Medicine Nephrology
DX: N28.89 Other specified disorders of kidney and ureter (principal); I12.9 Hypertensive chronic kidney disease with stage 1 through stage 4 chronic kidney disease, or unspecified chronic kidney disease; N18.31 Chronic kidney disease, stage 3a
CPT/HCPCS: 74183; A9585

== ENCOUNTER 2023-10-19 09:53 | Outpatient (REF) | payer MEDICARE, SELFPAY ==
[2023-10-19 10:22] LABS: MANUAL DIFF FLAG NO
[2023-10-19 10:51] LABS: Appearance Urine Clear; Color Urine Yellow; Glucose Urine UA Negative (Negative); Leukocyte Esterase Urine Moderate (2+) (Negative); Nitrite Urine Negative (Negative); PH 5.5 (5.0-9.0); UMIC TRIGGER UA YES; Urine Blood Negative (Negative); Urine Ketones Negative (Negative); Urine Protein Negative (Neg-Trace)
[2023-10-19 11:03] LABS: Bacteria Urine None Seen (None Seen); Hyaline Casts Urine 0-2 /LPF (0-2); RBC Urine 0-2 /HPF (0-2); Squamous Epithelial Cell Urine 0-2 /HPF (0-2); WBC Urine 0-5 /HPF (0-5)
[2023-10-19 11:09] LABS: Basophils Percent Auto 0.6 % (0-2); Eosinophils Absolute Auto 0.1 X10*3/uL (0.0-0.4); Eosinophils Percent Auto 1.1 % (0-4); Hematocrit 40.6 % (37.0-47.0); Hemoglobin 12.5 g/dl (12.0-16.0); Imm Gran Abs Auto 0.05 X10*3/uL (0.00-0.03); Imm Gran Pct Auto 0.7 % (0.0-0.4); Lymphocytes Absolute Auto 1.5 X10*3/uL (1.2-4.9); Lymphocytes Percent Auto 21.7 % (20-40); Mean Corpuscular HGB Conc 30.8 g/dl (31.0-35.0); Mean Corpuscular Hemoglobin 29.8 pg (27.0-33.0); Mean Corpuscular Volume 96.9 fL (80.0-98.0); Mean Platelet Volume 10.9 fL (9.4-12.3); Monocytes Absolute Auto 0.7 X10*3/uL (0.1-1.2); Monocytes Percent Auto 9.5 % (2-11); Neutrophils Absolute Auto 4.7 x10*3/uL (2.0-8.3); Neutrophils Percent Auto 66.4 % (45-73); Platelet Count 198 X10*3/uL (160-400); Red Blood Count 4.19 X10*6/uL (4.20-5.50); Red Cell Distribution Width 13.8 % (11.0-16.0); White Blood Count 7.1 X10*3/uL (4.8-10.8)
[2023-10-19 12:16] LABS: Parathyroid Hormone Intact 108.2 pg/mL (8.7-77.1)
[2023-10-19 12:18] LABS: Creatinine Urine 27.79 mg/dL; Total Protein Urine Random < 7 mg/dL (<12)
[2023-10-19 12:25] LABS: Anion Gap 13 (12-20); Blood Urea Nitrogen 43 mg/dL (9-16); Calcium 9.7 mg/dL (8.4-10.2); Carbon Dioxide 32 mmol/L (22-29); Chloride 105 mmol/L (96-108); Estimated Glomerular Filt Rate 31; Iron 56 mcg/dL (30-160); Magnesium 2.2 mg/dL (1.6-2.6); Percent Iron Saturation 28 % (15-50); Potassium 4.2 mmol/L (3.3-5.1); Sodium 146 mmol/L (135-145); Total Iron Binding Capacity 203 mcg/dL (228-428); Unsaturated Iron Binding 147 ug/dL
[2023-10-19 12:46] LABS: Ferritin 669 ng/mL (10-250); Vitamin D 25-OH Total 51.1 ng/mL (>30)
== END 2023-10-19 09:54 | disposition home or self-care (01) ==
LOC: HO.LAB 09:53
PROVIDERS: PCP Internal Medicine; Visit Provider Internal Medicine Nephrology
DX: N18.30 Chronic kidney disease, stage 3 unspecified (principal)
CPT/HCPCS: 36415; 80051; 81001; 82306; 82310; 82565; 82570; 82728; 83540; 83735; 83970; 84156; 84520; 85025; 87086

== ENCOUNTER 2023-12-02 15:06 | Outpatient (AMB) | payer MEDICARE, SELFPAY ==
--- NOTE | 2023-12-02 15:42 | A.OFFVIS_ITS ---
Intake Vital Signs 12/02/23 15:48 Height 5 ft 1 in Weight 192 lb BMI 36.3 BP 130/82 Blood Pressure Location Lt brachial Position Sitting Intake Visit Reasons: 6 mth breast exam Intake Note: Patient is seen in office for 6 month follow up visit, breast exam. Pt c/o: denies any concerns at the time of visit mm sched:01/04/24 Fire Prevention Bureau Captain Required: No Accompanied by: Other Relationship Allergies adhesive tape Allergy (Unknown, Uncoded 12/02/23 15:49) rash Medication List - Last Reconciled 12/03/23 by Mitchell Rothman MD atenolol 50 mg PO DAILY atorvastatin 10 mg PO DAILY cholecalciferol (vitamin D3) (Vitamin D3) 50 mcg PO DAILY ferrous sulfate 325 mg PO BID letrozole 2.5 mg PO DAILY lisinopril-hydrochlorothiazide 20-12.5 mg 1 tab PO DAILY HPI HPI Comments History of Present Illness Details Blanca Carlisle is an 88 year old female, patient of Dr. Ruiz, and former patient of Dr. Hodge,?found on screening mammogram and ultrasound of 12/10/2021 to have a nodule in the right breast at the upper outer quadrant. ? 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 She underwent a right breast lumpectomy with sentinel node biopsy on 12/29/2021. Pathology revealed a mucinous carcinoma, grade 2, 0.9 cm, with negative margins (pT1b N0 (sn) (i-), 0 of 2 lymph nodes with metastatic carcinoma. She was evaluated by Dr. Lewis and started on letrozole. She was referred to Radiation Oncology (Dr. Ramirez) at [facility]. She has decided to declined radiation therapy. 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 During the workup an ultrasound identified two masses in the left breast. An ultrasound dated April 08, 2012 showed a slight increase in size of both of the lesions. An US guided biopsy of both of these lesions identifying fatty tissue consistent with angiolipomas.? Her family history is positive for her mother having breast cancer. She feels well and denies any new breast symptoms. Her most recent mammogram of 12/31/2022 revealed no mammographic evidence of malignancy (BI-RADS 2). Follow- up mammogram in 1 year is recommended. [facility] Medical History Mucinous carcinoma of right breast Surgical History History of lumpectomy of right breast History of left breast biopsy (05/06/12) History of dilation and curettage Family History Father Prostate cancer Mother Breast cancer Family/Other Breast cancer, Onset Age: 50 Paternal Aunt Breast cancer Social History Household Members: None Housing: House Are you a primary caretaker resort to a significant other at home: No Do you presently have visiting nurse or other home services: No Alcohol intake: never Patient Tobacco Use Status: Never used Tobacco service: No Current occupational status: retired Review of Systems Const All systems reviewed & are unremarkable except as noted in HPI and below Card Denies chest pain, Denies rapid heart rate, Denies irregular heart rhythm and Denies dyspnea Resp Denies cough, Denies hemoptysis and Denies dyspnea GI Denies abdominal pain Denies nipple discharge Skin/Breast Denies breast swelling, Denies breast skin changes, Denies breast pain, Reports breast mass, Denies change in breast shape and Denies nipple discharge Physical Exam Vital Signs: Last Vital Signs BP 130/82 12/02/23 15:48 BMI result Body Mass Index 36.3 Const General: no acute distress and well developed Nutritional Appearance: well nourished Orientation/consciousness: patient oriented x3 Limitations: no limitations Chest Other: Right breast: Incision in right breast is clean, dry, and intact without hematoma or seroma. No new skin change, nipple retraction, palpable mass, or enlarged lymph nodes are appreciated. Left breast: No new skin change, nipple discharge, nipple retraction, palpable mass, or enlarged lymph nodes are appreciated. Resp Other: breathing comfortably on room air, no shortness of breath Skin Other: warm, dry, no rash Neuro General: patient oriented x3 Extrem Other: no edema Assessment & Plan Assessment & Plan (1) Mucinous carcinoma of right breast: Code(s): C50.911 - Malignant neoplasm of unspecified site of right female breast Plan 88-year-old female patient returning for follow-up examination after a lumpectomy and sentinel node biopsy for a mucinous carcinoma right breast. She feels well and denies any new breast symptoms. Examination today reveals no new suspicious findings in either breast. She will be due for a yearly mammogram in December 2023. She should follow up in 6 months for routine breast examination. She is welcome to call sooner for any new concerns. She will continue to follow up with Dr. Lewis. Coding Level of Care Code Est Pt Level 3 (58495) Diagnoses Mucinous carcinoma of right breast C50.911
[2023-12-02 15:48] VITALS: BP 130/82; BMI 36.3
== END 2023-12-02 16:01 | disposition home or self-care (01) ==
PROVIDERS: PCP Internal Medicine; Visit Provider Surgery
DX: C50.911 Malignant neoplasm of unspecified site of right female breast (principal)
CPT/HCPCS: 99213

== ENCOUNTER → 2023-12-02 15:06 | Outpatient (BNVA) | payer MEDICARE, SELFPAY | PROVIDERS: PCP Internal Medicine; Visit Provider Surgery | DX: C50.911 Malignant neoplasm of unspecified site of right female breast (principal) | CPT/HCPCS: 99212 ==

== ENCOUNTER 2023-12-15 10:17 | Outpatient (REF) | payer MEDICARE, SELFPAY ==
[2023-12-15 10:34] LABS: MANUAL DIFF FLAG NO
[2023-12-15 11:00] LABS: Basophils Percent Auto 0.4 % (0-2); Eosinophils Absolute Auto 0.1 X10*3/uL (0.0-0.4); Eosinophils Percent Auto 0.8 % (0-4); Hematocrit 40.2 % (37.0-47.0); Hemoglobin 12.6 g/dl (12.0-16.0); Imm Gran Abs Auto 0.03 X10*3/uL (0.00-0.03); Imm Gran Pct Auto 0.4 % (0.0-0.4); Lymphocytes Absolute Auto 1.5 X10*3/uL (1.2-4.9); Mean Corpuscular HGB Conc 31.3 g/dl (31.0-35.0); Mean Corpuscular Hemoglobin 29.1 pg (27.0-33.0); Mean Corpuscular Volume 92.8 fL (80.0-98.0); Mean Platelet Volume 10.6 fL (9.4-12.3); Monocytes Absolute Auto 0.8 X10*3/uL (0.1-1.2); Monocytes Percent Auto 10.1 % (2-11); Neutrophils Absolute Auto 5.2 x10*3/uL (2.0-8.3); Neutrophils Percent Auto 68.3 % (45-73); Platelet Count 199 X10*3/uL (160-400); Red Blood Count 4.33 X10*6/uL (4.20-5.50); White Blood Count 7.5 X10*3/uL (4.8-10.8)
[2023-12-15 11:40] LABS: Erythrocyte Sedimentation Rate 34 MM/HR (0-20)
[2023-12-15 11:45] LABS: C Reactive Protein 0.72 mg/dL (< or = 0.50)
[2023-12-15 12:19] LABS: Uric Acid 7.8 mg/dL (2.4-5.7)
== END 2023-12-15 10:18 | disposition home or self-care (01) ==
LOC: HO.LAB 10:17
PROVIDERS: PCP Internal Medicine; Visit Provider Podiatrist
DX: L03.116 Cellulitis of left lower limb (principal); M10.072 Idiopathic gout, left ankle and foot
CPT/HCPCS: 36415; 84550; 85025; 85652; 86140

== ENCOUNTER 2024-01-03 09:55 | Outpatient (REF) | payer MEDICARE, SELFPAY ==
--- NOTE | ~2024-01-03 | US_ITS ---
EXAMINATION: US RETROPERITONEAL COMPLETE (RENAL) CLINICAL INFORMATION: Neoplasm of right kidney. COMPARISON: MRI abdomen 06/28/2023. Renal ultrasound 04/23/2023. CT abdomen and pelvis 10/07/2021. TECHNIQUE: Real-time imaging of the kidneys and bladder. FINDINGS: RIGHT KIDNEY: 11.3 x 4.4 x 5.0 cm (SAG x AP x TRV). The kidney is normal in size, contour, and echogenicity. Renal cortical thickness is normal. 3.3 x 2.7 x 2.2 cm central solid mass in the mid kidney is stable compared to prior ultrasound previously measuring 3.4 x 2.7 x 2.2 cm when measured similarly. 6 mm nonobstructing upper pole calculus. LEFT KIDNEY: 10.8 x 4.4 x 4.7 cm (SAG x AP x TRV). The kidney is normal in size, contour, and echogenicity. Renal cortical thickness is normal. No renal calculi or hydronephrosis. 1.7 cm simple cyst in the lower kidney. No follow-up imaging is recommended. BLADDER: Well distended and normal. Bilateral ureteral jets are demonstrated. Prevoid bladder volume is 272 mL. Postvoid bladder volume is 10 mL. US/US retroperitoneal comp IMPRESSION: Stable solid mass in the mid right kidney concerning for renal cell carcinoma. Continued surveillance recommended. 6 mm nonobstructing calculus in the upper right kidney. No hydronephrosis.
== END 2024-01-03 09:56 | disposition home or self-care (01) ==
LOC: HO.US 09:55
PROVIDERS: PCP Internal Medicine; Visit Provider Urology
DX: D41.01 Neoplasm of uncertain behavior of right kidney (principal)
CPT/HCPCS: 76770

== ENCOUNTER 2024-01-04 14:11 | Outpatient (REF) | payer MEDICARE, SELFPAY ==
--- NOTE | ~2024-01-04 | MM_ITS ---
EXAMINATION: MM DIAGNOSTIC DIGITAL BREAST TOMOSYNTHESIS, BILATERAL CLINICAL INFORMATION: History of mucinous CA right breast upper outer quadrant status post lumpectomy in 12/29/2021. This will be the second post op evaluation of the right breast. Patient also due for bilateral screening. COMPARISON: Mammography: 12/31/2022, 12/04/2021, 12/02/2020,09/13/2019, 08/31/2018. TECHNIQUE: Digital breast tomosynthesis is performed in both the craniocaudal and mediolateral oblique views along with computer-aided detection (CAD). Synthesized 2D images are generated from the tomosynthesis. In addition, spot magnification 2-D right CC and ML views were obtained of the lumpectomy bed. FINDINGS: There are scattered areas of fibroglandular density (ACR BI-RADS breast composition Category b). There is lumpectomy scarring in the upper outer right breast, with mild coarsening of the trabecula stroma. Left breast has 2 biopsy clip markers mid and posterior inner quadrant. There is no significant mass or architectural abnormality or abnormal calcifications. No significant changes. MM/MM tomosynthesis diagnostic BI IMPRESSION: No mammographic evidence of malignancy. Benign post lumpectomy changes upper outer right breast. Recommend the patient complete year 3 postoperative protocol bilateral mammography in one year. ASSESSMENT: BI-RADS BI-RADS 2 - Benign Findings RECOMMENDATION: 1 year F/U Results were provided to the patient at time of visit by the technologist. This patient's information was entered into a reminder system with a target due date for their next mammogram.
== END 2024-01-04 14:12 | disposition home or self-care (01) ==
LOC: HO.MAMMO 14:11
PROVIDERS: PCP Internal Medicine; Visit Provider Surgery
DX: R92.8 Other abnormal and inconclusive findings on diagnostic imaging of breast (principal)
CPT/HCPCS: 77062; 77066

== ENCOUNTER 2024-04-18 08:34 | Outpatient (REF) | payer MEDICARE, SELFPAY ==
[2024-04-18 08:53] LABS: MANUAL DIFF FLAG NO
[2024-04-18 09:28] LABS: Basophils Percent Auto 0.6 % (0-2); Eosinophils Absolute Auto 0.2 X10*3/uL (0.0-0.4); Eosinophils Percent Auto 2.5 % (0-4); Hematocrit 38.4 % (37.0-47.0); Hemoglobin 12.2 g/dl (12.0-16.0); Imm Gran Abs Auto 0.04 X10*3/uL (0.00-0.03); Imm Gran Pct Auto 0.6 % (0.0-0.4); Lymphocytes Absolute Auto 1.4 X10*3/uL (1.2-4.9); Mean Corpuscular HGB Conc 31.8 g/dl (31.0-35.0); Mean Corpuscular Hemoglobin 29.5 pg (27.0-33.0); Mean Platelet Volume 10.8 fL (9.4-12.3); Monocytes Absolute Auto 0.7 X10*3/uL (0.1-1.2); Monocytes Percent Auto 9.6 % (2-11); Neutrophils Absolute Auto 4.5 x10*3/uL (2.0-8.3); Neutrophils Percent Auto 65.7 % (45-73); Platelet Count 197 X10*3/uL (160-400); Red Blood Count 4.13 X10*6/uL (4.20-5.50); Red Cell Distribution Width 14.9 % (11.0-16.0); White Blood Count 6.9 X10*3/uL (4.8-10.8)
[2024-04-18 10:00] LABS: Alanine Aminotransferase 8 U/L (0-31); Albumin Level 3.8 g/dL (3.5-5.0); Alkaline Phosphatase 66 U/L (39-117); Anion Gap 16 (12-20); Aspartate Amino Transferase 22 U/L (5-31); Bilirubin Total 0.4 mg/dL (0.0-1.0); Blood Urea Nitrogen 52 mg/dL (9-16); Calcium 10.3 mg/dL (8.4-10.2); Carbon Dioxide 23 mmol/L (22-29); Chloride 107 mmol/L (96-108); Cholesterol 168 mg/dL (<200); Estimated Glomerular Filt Rate 22; Glucose Fasting 139 mg/dL (60-99); HDL Cholesterol 34 mg/dL (>40); LDL Cholesterol Calculated 96 mg/dL (<100); Potassium 4.1 mmol/L (3.3-5.1); Sodium 142 mmol/L (135-145); Total Protein 7.1 g/dL (6.5-8.0); Triglycerides 191 mg/dL (<150)
[2024-04-18 10:26] LABS: Uric Acid 7.9 mg/dL (2.4-5.7)
== END 2024-04-18 08:35 | disposition home or self-care (01) ==
LOC: HO.LAB 08:34
PROVIDERS: PCP Internal Medicine; Visit Provider Internal Medicine
DX: R53.83 Other fatigue (principal); M10.9 Gout, unspecified; E78.5 Hyperlipidemia, unspecified
CPT/HCPCS: 36415; 80053; 80061; 84550; 85025

== ENCOUNTER 2024-05-26 11:22 | Outpatient (REF) | payer MEDICARE, SELFPAY ==
[2024-05-26 11:34] LABS: MANUAL DIFF FLAG NO
[2024-05-26 12:15] LABS: Basophils Percent Auto 0.6 % (0-2); Eosinophils Absolute Auto 0.1 X10*3/uL (0.0-0.4); Eosinophils Percent Auto 1.8 % (0-4); Hematocrit 37.9 % (37.0-47.0); Hemoglobin 11.8 g/dl (12.0-16.0); Imm Gran Abs Auto 0.06 X10*3/uL (0.00-0.03); Imm Gran Pct Auto 0.9 % (0.0-0.4); Lymphocytes Absolute Auto 1.8 X10*3/uL (1.2-4.9); Lymphocytes Percent Auto 27.6 % (20-40); Mean Corpuscular HGB Conc 31.1 g/dl (31.0-35.0); Mean Corpuscular Hemoglobin 29.6 pg (27.0-33.0); Mean Platelet Volume 10.6 fL (9.4-12.3); Monocytes Absolute Auto 0.7 X10*3/uL (0.1-1.2); Monocytes Percent Auto 10.7 % (2-11); Neutrophils Absolute Auto 3.9 x10*3/uL (2.0-8.3); Neutrophils Percent Auto 58.4 % (45-73); Platelet Count 189 X10*3/uL (160-400); Red Blood Count 3.99 X10*6/uL (4.20-5.50); Red Cell Distribution Width 15.2 % (11.0-16.0); White Blood Count 6.6 X10*3/uL (4.8-10.8)
[2024-05-26 12:36] LABS: Anion Gap 15 (12-20); Blood Urea Nitrogen 38 mg/dL (9-16); Calcium 9.8 mg/dL (8.4-10.2); Carbon Dioxide 27 mmol/L (22-29); Chloride 107 mmol/L (96-108); Estimated Glomerular Filt Rate 25; Iron 51 mcg/dL (30-160); Magnesium 2.2 mg/dL (1.6-2.6); Percent Iron Saturation 29 % (15-50); Potassium 4.5 mmol/L (3.3-5.1); Sodium 144 mmol/L (135-145); Total Iron Binding Capacity 177 mcg/dL (228-428); Unsaturated Iron Binding 126 ug/dL
[2024-05-26 12:39] LABS: Parathyroid Hormone Intact 118.7 pg/mL (8.7-77.1)
[2024-05-26 12:53] LABS: Ferritin 627 ng/mL (10-250); Vitamin D 25-OH Total 52.8 ng/mL (>30)
[2024-05-26 13:20] LABS: Appearance Urine Clear; Color Urine Yellow; Glucose Urine UA Negative (Negative); Leukocyte Esterase Urine Moderate (2+) (Negative); Nitrite Urine Negative (Negative); PH 5.5 (5.0-9.0); UMIC TRIGGER UA YES; Urine Blood Negative (Negative); Urine Ketones Negative (Negative); Urine Protein Negative (Neg-Trace)
[2024-05-26 13:27] LABS: Bacteria Urine None Seen (None Seen); Hyaline Casts Urine 0-2 /LPF (0-2); RBC Urine 0-2 /HPF (0-2); Squamous Epithelial Cell Urine 0-2 /HPF (0-2); WBC Urine 0-5 /HPF (0-5)
[2024-05-26 13:53] LABS: Total Protein Urine Random < 7 mg/dL (<12)
== END 2024-05-26 11:23 | disposition home or self-care (01) ==
LOC: HO.LAB 11:22
PROVIDERS: PCP Internal Medicine; Visit Provider Internal Medicine Nephrology
DX: N18.4 Chronic kidney disease, stage 4 (severe) (principal); I10 Essential (primary) hypertension
CPT/HCPCS: 36415; 80051; 81001; 82306; 82310; 82565; 82570; 82728; 83540; 83735; 83970; 84156; 84520; 85025

== ENCOUNTER 2024-06-01 13:43 | Outpatient (AMB) | payer MEDICARE, SELFPAY ==
--- NOTE | 2024-06-01 13:52 | A.OFFVIS_ITS ---
Vital Signs 06/01/24 14:07 Height 5 ft 1 in Weight 186 lb BMI 35.1 Pulse 66 Intake Visit Reasons: 6 mth breast exam Intake Note: Patient is seen in office for 6 month follow up visit, breast exam. Pt c/o:no concerns regarding her breast mm: 01/04/24 [place]: 02/09/24 Stock Analyst Required: No Client Services Associate: Client Services Associate Present Accompanied by: Family/Other Allergies adhesive tape Allergy (Unknown, Uncoded 06/01/24 13:57) rash HPI Comments Details: 88 year old female former patient of Dr. Hodge,?found on screening mammogram and ultrasound of 12/10/2021 to have a nodule in the right breast at the upper outer quadrant. ? 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 She underwent a right breast lumpectomy with sentinel node biopsy on 12/29/2021. Pathology revealed a mucinous carcinoma, grade 2, 0.9 cm, with negative margins (pT1b N0 (sn) (i-), 0 of 2 lymph nodes with metastatic carcinoma. She was evaluated by Dr. Lewis and started on letrozole. She was referred to Radiation Oncology (Dr. Ramirez) at [facility]. She has decided to declined radiation therapy. 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 During the workup an ultrasound identified two masses in the left breast. An ultrasound dated April 08, 2012 showed a slight increase in size of both of the lesions. An US guided biopsy of both of these lesions identifying fatty tissue consistent with angiolipomas.? Her family history is positive for her mother having breast cancer. She feels well and denies any new breast symptoms. Her most recent mammogram of 01/04/2024 revealed no mammographic evidence of malignancy (BI-RADS 2). Follow- up mammogram in 1 year is recommended (scheduled for 01/08/2025). [facility] Medical History Mucinous carcinoma of right breast Surgical History History of lumpectomy of right breast History of left breast biopsy (05/06/12) History of dilation and curettage Family History Father Prostate cancer Mother Breast cancer Family/Other Breast cancer, Onset Age: 50 Paternal Aunt Breast cancer Social History Household Members: None Housing: House Are you a primary attending ambulatory care to a significant other at home: No Do you presently have visiting nurse or other home services: No Alcohol intake: never Patient Tobacco Use Status: Never used Tobacco service: No Current occupational status: retired Review of Systems Const All systems reviewed & are unremarkable except as noted in HPI and below Card Denies chest pain, Denies rapid heart rate, Denies irregular heart rhythm and Denies dyspnea Resp Denies cough, Denies hemoptysis and Denies dyspnea GI Denies abdominal pain Denies nipple discharge Skin/Breast Denies breast swelling, Denies breast skin changes, Denies breast pain, Reports breast mass, Denies change in breast shape and Denies nipple discharge Physical Exam Const General: no acute distress and well developed Nutritional Appearance: well nourished Orientation/consciousness: patient oriented x3 Limitations: no limitations Chest Other: Right breast: Incision in right breast is clean, dry, and intact without hematoma or seroma. No new skin change, nipple retraction, palpable mass, or enlarged lymph nodes are appreciated. Left breast: No new skin change, nipple discharge, nipple retraction, palpable mass, or enlarged lymph nodes are appreciated. Resp Other: breathing comfortably on room air, no shortness of breath Skin Other: warm, dry, no rash Neuro Other: Mobility Assessment: 1. 3 meter assessment time (seconds):7 2. Gait observations: slow tentative pace General: patient oriented x3 Extrem Other: no edema Assessment & Plan Assessment & Plan (1) Mucinous carcinoma of right breast: Code(s): C50.911 - Malignant neoplasm of unspecified site of right female breast Category: Medical Plan 88-year-old female patient returning for follow-up examination after a lumpectomy and sentinel node biopsy for a mucinous carcinoma right breast. She feels well and denies any new breast symptoms. Examination today reveals no new suspicious findings in either breast. her most recent mammogram of 01/04/2024 revealed no mammographic evidence of malignancy ( BI-RADS 2 ). She is scheduled for a follow-up mammogram in 1 year. She should follow up in 6 months for routine breast examination. She is welcome to call sooner for any new concerns. She will continue to follow up with Dr. Lewis. Coding Level of Care Code Est Pt Level 3 (09102) Diagnoses Mucinous carcinoma of right breast C50.911
[2024-06-01 14:07] VITALS: PULSE 66; BMI 35.1
== END 2024-06-01 14:13 | disposition home or self-care (01) ==
PROVIDERS: PCP Internal Medicine; Visit Provider Surgery
DX: C50.911 Malignant neoplasm of unspecified site of right female breast (principal)
CPT/HCPCS: 99213

== ENCOUNTER → 2024-06-01 13:43 | Outpatient (BNVA) | payer MEDICARE, SELFPAY | PROVIDERS: PCP Internal Medicine; Visit Provider Surgery | DX: C50.411 Malignant neoplasm of upper-outer quadrant of right female breast (principal) | CPT/HCPCS: 99212 ==

== ENCOUNTER 2024-07-06 12:38 | Outpatient (REF) | payer MEDICARE, SELFPAY ==
--- NOTE | ~2024-07-06 | US_ITS ---
EXAMINATION: US RETROPERITONEAL COMPLETE (RENAL) CLINICAL INFORMATION: Calculus of kidney. COMPARISON: Ultrasound retroperitoneal 01/03/2024. Ultrasound renal 04/23/2023. MR abdomen 06/28/2023. CT abdomen and pelvis 10/07/2021. TECHNIQUE: Real-time imaging of the kidneys and bladder. Limited visualization due to bowel gas. FINDINGS: RIGHT KIDNEY: 10.3 x 4.0 x 4.0 cm (SAG x AP x TRV). No hydronephrosis. Renal cortical thickness is normal. Limited visualization. 2.7 x 2.3 x 2.8 cm right renal midpole upper pole mass. 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 0.4 cm right renal midpole nonobstructive calculus. No hydronephrosis. 0.9 cm upper pole cyst. Limited visualization. LEFT KIDNEY: 9.9 x 4.2 x 4.6 cm (SAG x AP x TRV). No hydronephrosis. No renal calculi. Renal cortical thickness is normal. Limited visualization. 0.8 cm upper pole pole cyst with benign features. There is no indication for follow-up imaging. . BLADDER: Partially full. Bilateral ureteral jets are demonstrated. Prevoid bladder volume is 224 mL. Postvoid bladder volume was not obtained as bladder was no longer visualized on post void images. Limited visualization due to bowel gas. US/US retroperitoneal comp IMPRESSION: 1. A 2.7 cm right renal midpole upper pole mass. Dedicated CT scan employing renal mass protocol with images obtained both prior to and following intravenous contrast recommended. 2. 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 3. A 0.4 cm right renal midpole nonobstructive calculus. No hydronephrosis. This study was presented to me on July 11 2024 for interpretation. PSA staff will provide results to referring provider at this time. Electronically signed by: Ruth Freire MD 07/11/2024 10:50 AM EDT
== END 2024-07-06 12:39 | disposition home or self-care (01) ==
LOC: HO.US 12:38
PROVIDERS: PCP Internal Medicine; Visit Provider Urology
DX: N20.0 Calculus of kidney (principal)
CPT/HCPCS: 76770

== ENCOUNTER 2024-07-17 11:38 | Outpatient (REF) | payer MEDICARE, SELFPAY ==
[2024-07-17 12:47] LABS: Alanine Aminotransferase 11 U/L (0-31); Alkaline Phosphatase 70 U/L (39-117); Anion Gap 12 (12-20); Aspartate Amino Transferase 20 U/L (5-31); Bilirubin Total 0.5 mg/dL (0.0-1.0); Blood Urea Nitrogen 37 mg/dL (9-16); Calcium 9.9 mg/dL (8.4-10.2); Carbon Dioxide 29 mmol/L (22-29); Chloride 106 mmol/L (96-108); Estimated Glomerular Filt Rate 25; Glucose Random 143 mg/dL (60-115); Potassium 4.1 mmol/L (3.3-5.1); Sodium 143 mmol/L (135-145); Total Protein 7.1 g/dL (6.5-8.0)
== END 2024-07-17 11:39 | disposition home or self-care (01) ==
LOC: HO.LAB 11:38
PROVIDERS: PCP Internal Medicine; Visit Provider Internal Medicine
DX: R53.83 Other fatigue (principal)
CPT/HCPCS: 36415; 80053

== ENCOUNTER 2024-10-24 11:50 | Outpatient (REF) | payer MEDICARE, SELFPAY ==
[2024-10-24 12:14] LABS: MANUAL DIFF FLAG NO
[2024-10-24 12:29] LABS: Basophils Percent Auto 0.6 % (0-2); Eosinophils Absolute Auto 0.1 X10*3/uL (0.0-0.4); Eosinophils Percent Auto 1.1 % (0-4); Hematocrit 40.3 % (37.0-47.0); Hemoglobin 12.4 g/dl (12.0-16.0); Imm Gran Abs Auto 0.05 X10*3/uL (0.00-0.03); Imm Gran Pct Auto 0.7 % (0.0-0.4); Lymphocytes Absolute Auto 1.6 X10*3/uL (1.2-4.9); Lymphocytes Percent Auto 22.5 % (20-40); Mean Corpuscular HGB Conc 30.8 g/dl (31.0-35.0); Mean Corpuscular Hemoglobin 29.5 pg (27.0-33.0); Mean Corpuscular Volume 95.7 fL (80.0-98.0); Mean Platelet Volume 10.4 fL (9.4-12.3); Monocytes Absolute Auto 0.8 X10*3/uL (0.1-1.2); Neutrophils Absolute Auto 4.5 x10*3/uL (2.0-8.3); Neutrophils Percent Auto 64.1 % (45-73); Platelet Count 202 X10*3/uL (160-400); Red Blood Count 4.21 X10*6/uL (4.20-5.50); Red Cell Distribution Width 14.5 % (11.0-16.0)
[2024-10-24 13:08] LABS: Alanine Aminotransferase 18 U/L (0-31); Alkaline Phosphatase 71 U/L (39-117); Anion Gap 11 (12-20); Aspartate Amino Transferase 26 U/L (5-31); Bilirubin Total 0.3 mg/dL (0.0-1.0); Blood Urea Nitrogen 42 mg/dL (9-16); Calcium 10.2 mg/dL (8.4-10.2); Carbon Dioxide 29 mmol/L (22-29); Chloride 108 mmol/L (96-108); Cholesterol 189 mg/dL (<200); Estimated Glomerular Filt Rate 28; Glucose Random 101 mg/dL (60-115); HDL Cholesterol 41 mg/dL (>40); LDL Cholesterol Calculated 100 mg/dL (<100); Potassium 4.5 mmol/L (3.3-5.1); Sodium 143 mmol/L (135-145); Total Protein 7.3 g/dL (6.5-8.0); Triglycerides 242 mg/dL (<150)
[2024-10-24 13:37] LABS: Uric Acid 6.4 mg/dL (2.4-5.7)
== END 2024-10-24 11:51 | disposition home or self-care (01) ==
LOC: HO.LAB 11:50
PROVIDERS: PCP Internal Medicine; Visit Provider Internal Medicine
DX: E78.5 Hyperlipidemia, unspecified (principal); R53.83 Other fatigue; M10.9 Gout, unspecified
CPT/HCPCS: 36415; 80053; 80061; 84550; 85025

== ENCOUNTER 2024-12-07 12:38 | Outpatient (AMB) | payer MEDICARE, SELFPAY ==
--- NOTE | 2024-12-07 12:48 | A.OFFVIS_ITS ---
Vital Signs 3 12/07/24 12:56 Height 5 ft 1 in Weight 184 lb BMI 34.8 BP 175/77 H Blood Pressure Location Lt brachial Position Sitting Pulse 55 Intake Visit Reasons: 6 mth breast exam Intake Note: Patient is seen in office for 6 month follow up visit, breast exam. Pt c/o: denies any concerns at the time of visit mm sched:01/08/25 Pointing Machine Operator Required: No Pediatric Oncologist: Pediatric Oncologist Present Accompanied by: Family/Other Allergies adhesive tape Allergy (Unknown, Uncoded 12/07/24 12:57) rash Medication List - Last Reconciled 12/07/24 by Mitchell Rothman MD allopurinol 100 mg DAILY PRN atenolol 50 mg PO DAILY atorvastatin 10 mg PO DAILY cholecalciferol (vitamin D3) (Vitamin D3) 50 mcg PO DAILY hydralazine 25 mg PO BID letrozole 2.5 mg PO DAILY lisinopril-hydrochlorothiazide 20-12.5 mg 1 tab PO DAILY HPI Comments Details: 89 year old female former patient of Dr. Hodge,?found on screening mammogram and ultrasound of 12/10/2021 to have a nodule in the right breast at the upper outer quadrant. ? 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 She underwent a right breast lumpectomy with sentinel node biopsy on 12/29/2021. Pathology revealed a mucinous carcinoma, grade 2, 0.9 cm, with negative margins (pT1b N0 (sn) (i-), 0 of 2 lymph nodes with metastatic carcinoma. She was evaluated by Dr. Lewis and started on letrozole. She was referred to Radiation Oncology (Dr. Ramirez) at [facility]. She has decided to declined radiation therapy. 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 During the workup an ultrasound identified two masses in the left breast. An ultrasound dated April 08, 2012 showed a slight increase in size of both of the lesions. An US guided biopsy of both of these lesions identifying fatty tissue consistent with angiolipomas.? Her family history is positive for her mother having breast cancer. She feels well and denies any new breast symptoms. Her most recent mammogram of 01/04/2024 revealed no mammographic evidence of malignancy (BI-RADS 2). Follow- up mammogram in 1 year is recommended (scheduled for 01/08/2025). [facility] Medical History Mucinous carcinoma of right breast Surgical History History of lumpectomy of right breast History of left breast biopsy (05/06/12) History of dilation and curettage Family History Father Prostate cancer Mother Breast cancer Family/Other Breast cancer, Onset Age: 50 Paternal Aunt Breast cancer Social History Household Members: None Housing: House Are you a primary clinical care leader to a significant other at home: No Do you presently have visiting nurse or other home services: No Alcohol intake: never Patient Tobacco Use Status: Never used Tobacco service: No Current occupational status: retired Review of Systems Const All systems reviewed & are unremarkable except as noted in HPI and below Card Denies chest pain, Denies rapid heart rate, Denies irregular heart rhythm and Denies dyspnea Resp Denies cough, Denies hemoptysis and Denies dyspnea GI Denies abdominal pain Denies nipple discharge Skin/Breast Denies breast swelling, Denies breast skin changes, Denies breast pain, Reports breast mass, Denies change in breast shape and Denies nipple discharge Physical Exam Const General: no acute distress and well developed Nutritional Appearance: well nourished Orientation/consciousness: patient oriented x3 Limitations: no limitations Chest Other: Right breast: Incision in right breast is clean, dry, and intact without hematoma or seroma. No new skin change, nipple retraction, palpable mass, or enlarged lymph nodes are appreciated. Left breast: No new skin change, nipple discharge, nipple retraction, palpable mass, or enlarged lymph nodes are appreciated. Chest/axillae images: 2 1. Incision upper outer quadrant right breast Resp Other: breathing comfortably on room air, no shortness of breath Skin Other: warm, dry, no rash Neuro Other: Mobility Assessment: 1. 3 meter assessment time (seconds):7 2. Gait observations: slow tentative pace General: patient oriented x3 Extrem Other: no edema Assessment & Plan Assessment & Plan (1) Mucinous carcinoma of right breast: Code(s): C50.911 - Malignant neoplasm of unspecified site of right female breast Category: Medical Plan 89-year-old female patient returning for follow-up examination after a lumpectomy and sentinel node biopsy for a mucinous carcinoma right breast. She feels well and denies any new breast symptoms. Examination today reveals no new suspicious findings in either breast. The most recent mammogram of 01/04/2024 revealed no mammographic evidence of malignancy ( BI-RADS 2 ). She is scheduled for a follow-up mammogram 01/08/2025. She should follow up in 6 months for routine breast examination. She is welcome to call sooner for any new concerns. She will continue to follow up with Dr. Lewis. Coding Level of Care Code Est Pt Level 3 (12449) Complex EM visit Add On G2211 Diagnoses Mucinous carcinoma of right breast C50.911
[2024-12-07 12:56] VITALS: BP 175/77; PULSE 55; BMI 34.8
--- OUTSIDE RECORDS SUMMARY | 2024-12-07 13:32 | XMS_ITS ---
Author Organization [facility] Address [address] [place] [address] Care Team Providers Care Snorkelling Instructor Name Role Phone Joseph ERWIN, Tushar Primary Care Provider Unavailab wilbert RinconRavene Unavailable [phone] Allergies Allergen (clinical drug ingredient) Drug/Non Drug Allergy documented on EMR Reaction Allergy Type Onset Date Status Adhesive Unknown Allergy Active REASON FOR VISIT Noncovered Foot Care Medications Medication SIG (Take, Route, Frequency, Duration) Notes Start Date End Date Status Vitamin C Not-Taking Medrol 4 MG as directed Orally Daily for 6 days 12/16/2023 Not-Taking Iron 325 (65 Fe) MG as directed Orally Not-Taking Atenolol 50 MG 1 tablet Orally Once a day for 30 day(s) Active Atorvastatin Calcium 10 MG 1 tablet Orally Once a day for 30 day(s) Active Letrozole 2.5 MG 1 tablet Orally Once a day for 30 day(s) Active Lisinopril-hydroCHLOROthi azide 20-12.5 MG 1 tablet Orally Once a day Active Vitamin D3 Active hydrALAZINE HCl 25 MG 1 tablet with food Orally Twice a day Active Allopurinol Active Lisinopril 10 MG 1 tablet Orally Once a day for 30 day(s) Not-Taking Social History Tobacco Use: Social History Observation Description Date Details (start date - stop date) Never Smoker NA - NA Tobacco Use/Smoking Question Answer Notes Are you a: nonsmoker Additional Findings: Tobacco Non-User Current no n-smoker Tobacco use other than smoking: Question Answer Notes Are you an other tobacco user? No Vital Signs Blood pressure systolic 130 mm Hg 11/30/19 25 Blood pressure diastolic 80 mm Hg 025 Height 5 ft in 11/30/2024 Weight 185 lbs 11/30/2024 BMI 36.13 kg/m2 11/30/2024 Encounters Encounter Location Date Provider Diagnosis [facility] [address] [address] 11/30/2024 Monika Rincon 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 et plantaris L85.1 and Other nail disorders L60.8 Assessments Encounter Date Diagnosis (ICD Code) Assessment Notes Treatment Notes Treatment Clinical Notes Section Notes 11/30/2024 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 et plantaris (ICD-10 - L85.1) 11/30/2024 Other nail disorders (ICD-10 - L60.8) Plan Of Treatment Next Appt Details Follow Up: 3 Months, Reason: Provider Name:Monika Rincon , 03/08/2025 03:00:00 PM, [address] [place] [address], [phone], Procedure Notes * Category Sub-Category Detail Notes Keratoma Treatment Parring or Cutting o f Benign Hyperkeratotic Lesion(s) 21951-PG Self Pay Non-Covered Callus care- Nail Reduction Nail Reduction 71799-PE Trimmin g of non-dystrophic nails Progress Notes * Blanca WOODDOB:[birth year] (89 yo F)Acc No.[id number]:11/30/2024 Progress Note Patient:?Blanca WOOD Provider:?Monika RinconMISSY :1935???Age:89 Y???Sex:Female D ate:11/30/2024 Address:[address] Pcp:Tushar Ruiz MD Subjective: * Chief Complaints: * ???Noncovered Foot Care * ROS:?General/Constitutional:?Nausea?denies.?Vomiting?denies.?Hunger Thirst?denies.?Loss appetite?denies.?Chills?denies.?Fatigue?denies.?Fever?denies.?Night Sweats?denies.?Unexplained weight loss?denies.?Unexplained weight gain?denies.?HEENTM:?Dentures?denies.?Dizziness?denies.?Glasses/contacts?admits.?Retinopathy?den ies.?Blurred/double vision?denies.?TMJ?denies.?Discharge/drainage?denies.?Implants?denies.?Sore throat?denies.?Dental implants?denies.?Hard of hearing ?denies.?Difficulty chewing/swallowing/speaking?denies.?Nose bleeds?denies.?Sore mouth?denies.?Respiratory:?On O xygen?denies.?Pneumonia/pleurisy?denies.?Bronchitis?denies.?Emphysema?denies.?Co ughing?denies.?Cough blood?denies.?Shortness of breath?denies.?Wheezing?denies.?Cardiovascular:?Pacemaker?denies.?MVP?denies.?WPW?denies.?CHF?denies.?Heart attack?denies.?Septal defect?denies.?Rapid beat?denies.?Chest pain ?denies.?Atrial Fib.?denies.?Murmur/Palpitations?denies.?Gastrointestinal:?Hemorrhoids?denies.?Stomach/Abdominal pain?denies.?Dark blood stool?denies.?Irritable bowel ?denies.?Constipation?denies.?Diarrhea?denies.?Hematology:?Swelling?admits.?Clots?denies.?Varicose Veins?denies.?Bruising?denies.?Bleeding problem?denies.?Genitourinary:?Blood urine?denies.?Frequent/Painfu/urination/bladder control?denies.?Kidney stones?denies.?Infection (UTI)?denies.?Nephropathy?denies.?sex trans dis (STD)?denies.?Prostate?denies.?Musculoskeletal:?Hammertoes?admits.?Bunions?denies.?Back Pain?denies.?Muscle Cramps/ Resting?denies.?Muscle cramps / walking?denies.?Generalized aches and pains?admits.?Weakness?denies.?Integ.:?Morales?denies.?Scars?denies.?Corns/calluses?denies.?Ingrown nails?denies.?Painful nails?denies.?Open Sores?denies.?Rashes?denies.?Neurologic:?Difficulty sleeping?denies.?Brain disorder?denies.?Numbness?denies.?Balance t rouble?denies.?Confusion?denies.?Fainting/blackouts?denies.?Tingling?denies.?Mak mors?denies.? * Medical History:? * Surgical History:?dilatation and curettage 1999, 2004Breast Surgery 12/29/2021&C 02/19/22 * Hospitalization/Major Diagno stic Procedure:?[facility] removal polip from uterus 06/16/18 * Family History:?Mother: dece ased, diagnosed with Other malignant neoplasm of unspecified site, Unspecified essential hypertension, Family history of arthritis.?Father: , diagnosed with Other malignant neoplasm of unspecified site, Unspecified essential hypertension, Family history of arthritis.?Maternal Grand Father: arthritis, cancer.?Siblings: arthritis, cancer.? * Social History:?Tobacco Use:?Tobacco Use/Smoking?Are you a:?nonsmoker ?Additional Findings: Tobacco Non-User?Current non-smoker ?Tobacco use other than smoking?Are you an other tobacco user??No ???Miscellaneous:?Caffeine: yes, 1-2 cups per day. ?Children: yes. ?Exercise: no. ?Marital status: . ?Occupation: retired, office work. * Medications:?TakingAllopurin ol hydrALAZINE HCl 25 MG Tablet 1 tablet with food Orally Twice a day Vitamin D3 Lisinopril-hydroCHLOROthiazide 20-12.5 MG Tablet 1 tablet Orally Once a day Letrozole 2.5 MG Tablet 1 tablet Orally Once a day Atorvastatin Calcium 10 MG Tablet 1 tablet Orally Once a day Atenolol 50 MG Tablet 1 tablet Orally Once a day Taking Allopurinol Taking hydrALAZINE HCl 25 MG Tablet 1 tablet with food Orally Twice a day Taking Vitamin D3 Taking Lisinopril-hydroCHLOROthiazide 20- 12.5 MG Tablet 1 tablet Orally Once a day Taking Letrozole 2.5 MG Tablet 1 tablet Orally Once a day Taking Atorvastatin Calcium 10 MG Tablet 1 tablet Orally Once a day Taking Atenolol 50 MG Tablet 1 tablet Orally Once a day Not-Taking/PRNIron 325 (65 Fe) MG Tablet as directed Orally Medrol 4 MG Tablet Therapy Pack as directed Orally Daily Vitamin C Lisinopril 10 MG Tablet 1 tablet Orally Once a day Medication List reviewed and reconciled with the patientNot-Taking/PRN Iron 325 (65 Fe) MG Tablet as directed Orally Not-Taking/PRN Medrol 4 MG Tablet Therapy Pack as directed Orally Daily Not-Taking/PRN Vitamin C Not-Taking/PRN Lisinopril 10 MG Tablet 1 tablet Orally Once a day Medication List reviewed and reconciled with the patient * Allergies:?Adhesiveyes[Aller gies Verified] Objective: * Vitals:?Ht: 5 ft, Wt: 185, B MA: 36.13, Shoe size: 7.5, BP: 130/80 mm Hg, BS: not taken, Ht-cm: 152.4 cm, Wt-k.92 kg. * ???Past Orders: ???Lab:HEMOGLOBIN A1C (GLYCO HEMOGLOBIN) (Order Date - 10/18/2024) (Collection Date & Time - 10/18/2024 10:50 AM) ? Value Reference Range ?HEMOGLOBIN A1C % (HH) 6.3 * Examination: ???Ophthalmology Referral: ?DIABETES EYE EXAM?Nails: ?NAILS are:?elongated,overgrown, and non-dystrophic, ?T1, T2, T3, T4,T6, T7, T8, T9.?Dermatologic: ?HYPERKERATOSIS:?1st MTHbilateral,TA,T5, 5th MTH, right.? 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 Plan: * Treatment: * Procedures:?Keratoma Treatment:?Parring or Cutting of Benign Hyperkeratotic Lesion(s)?24929-IM Self Pay Non-Covered Callus care-.?Nail Reduction:?Nail Reduction?76763-SH Trimming of non-dystrophic nails.? * Procedure Codes:?41321 TRIM SKIN LESIONS, OVER 4 $60, Modifiers: GY 79374 TRIM NAIL(S), Modifiers: GY * Follow Up:?3 Months * Images: * Sign off status: Completed true * Provider:?Monika Rincon DPM Date:?2024 Generated for Rafi clement/Amol/Luis Manuel on:?12/07/2024 01:32 PM EST History and Physical Notes * Examination Category Sub-Category Detail Notes Category Not es Dermatologic SKIN FINDINGS: HYPERKERATOSIS: 1st MTHbilateral,TA, T5, 5th MTH, right Ophthalmology Referral DIABETES EYE EXAM Procedure Perform ed:: Yes ?Date of Exam Performed: 04/17/2024 Findings of Diabetic Eye Exam:: no retin opathy Nails NAILS are: elongated,overgr own, and non-dystrophic, T1, T2, T3, T4,T6, T7, T8, T9
--- OUTSIDE RECORDS SUMMARY | 2024-12-07 13:32 | XMS_ITS ---
Author Organization [facility] Address [address] [place] [address] Care Team Providers Care Delivery Aide Name Role Phone Joseph ERWIN, Tushar Primary Care Provider UnavailMonika Gallegos Unavailable [phone] Allergies Allergen (clinical drug ingredient) Drug/Non Drug Allergy documented on EMR Reaction Allergy Type Onset Date Status Adhesive Unknown Allergy Active REASON FOR VISIT Last PCP visit 07/28/24, Noncovered Foot Care, Pcp-02/24/24 Medications Medication SIG (Take, Route, Frequency, Duration) Notes Start Date End Date Status Lisinopril 10 MG 1 tablet Orally Once a day for 30 day(s) Not-Taking Vitamin C Not-Taking Medrol 4 MG as [...] with food Orally Twice a day Active Atorvastatin Calcium 10 MG 1 tablet Orally Once a day for 30 day(s) Active Allopurinol Active Social History Tobacco Use: Social History Observation Description Date Details (start date - stop date) Never Smoker NA - NA Tobacco Use/Smoking Question Answer Notes Are you a: nonsmoker Additional Findings: Tobacco Non-User Current no n-smoker Alcohol Screen Question Answer Notes Did you have a drink containing alcohol in the p ast year? No Points 0 Interpretation Negative Tobacco use other than smoking: Question Answer Notes Are you an other tobacco user? No Vital Signs Height 5 ft in 08/25/2024 Weight 187 lbs 08/25/2024 BMI 36.52 kg/m2 08/25/2024 Procedures Procedure Date Ordered Date Performed Result Body Sit e 49874-ZCBB SKIN LESIONS, OVER 4 08/25/2024 N/A 68137-WKOE NAIL(S) 08/25/2024 N/A Encounters Encounter Location Date Provider Diagnosis [facility] [address] 08/25/2024 Monika Rincon 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 et plantaris L85.1 and Other nail disorders L60.8 Assessments Encounter Date Diagnosis (ICD Code) Assessment Notes Treatment Notes Treatment Clinical Notes Section Notes 08/25/2024 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 et plantaris (ICD-10 - L85.1) 08/25/2024 Other nail disorders (ICD-10 - L60.8) Plan Of Treatment Pending Test Test Name Order Date 96989-JYDG SKIN LESIONS, OVER 4 08/25/20 24 61013-FYHT NAIL(S) 08/25/2024 Next Appt Details Follow Up: 3 Months, Reason: Provider Name:Monika Rincon , 03/08/2025 03:00:00 PM, [address] [place] [address], [phone], Procedure Notes * Category Sub-Category Detail Notes Keratoma Treatment Parring or Cutting o f Benign Hyperkeratotic Lesion(s) 57306-XR Self Pay Non-Covered Callus care- Nail Reduction Nail Reduction 95943-VU Trimmin g of non-dystrophic nails Progress Notes * Blanca WOODDOB:[birth year] (89 yo F)Acc No.[id number]:08/25/2024 Progress Note Patient:?Cely Blanca English Provider:?Monika Rincon DPM :1935???Age:89 Y???Sex:Female D ate:08/25/2024 Address:[address] Pcp:Tushar Ruiz MD Subjective: * Chief Complaints: * ???Last PCP visit 07/28/24No ncovered Foot CarePcp-02/24/24 * Medical History:? * Surgical History:?dilatation and curettage 1999, 2004Breast Surgery 2D&C 02/19/22 * Hospitalization/Major Diagno stic Procedure:?[facility] removal polip from uterus 06/16/18 * Family History:?Mother: dece ased, diagnosed with Family history of arthritis, Unspecified essential hypertension, Other malignant neoplasm of unspecified site.?Father: , diagnosed with Other malignant neoplasm of unspecified site, Family history of arthritis, Unspecified essential hypertension.?Maternal Grand Father: arthritis, cancer.?Siblings: arthritis, cancer.? * Social History:?Tobacco Use:?Tobacco Use/Smoking?Are you a:?nonsmoker ?Additional Findings: Tobacco Non-User?Current non-smoker ?Tobacco use other than smoking?Are you an other tobacco user??No ???Drugs/Alcohol:?Drugs?Have you used drugs other than those for medical reasons in the past 12 months??No ?Alcohol Screen?Did you have a drink containing alcohol in the past year??No ?Points?0 ?Interpretation?Negative ???Miscellaneous:?Caffeine: yes, 1-2 cups per day. ?Children: yes. ?no Exercise. ?Marital status: . ?Occupation: retired. * Medications:?TakingAllopurin ol hydrALAZINE HCl 25 MG Tablet 1 tablet with food Orally Twice a dayVitamin D3 Lisinopril-hydroCHLOROthiazide 20-12.5 MG Tablet 1 tablet Orally Once a dayLetrozole 2.5 MG Tablet 1 tablet Orally Once a dayAtorvastatin Calcium 10 MG Tablet 1 tablet Orally Once a dayAtenolol 50 MG Tablet 1 tablet Orally Once a dayTaking Allopurinol Taking hydrALAZINE HCl 25 MG Tablet 1 tablet with food Orally Twice a dayTaking Vitamin D3 Taking Lisinopril-hydroCHLOROthiazide 20- 12.5 MG Tablet 1 tablet Orally Once a dayTaking Letrozole 2.5 MG Tablet 1 tablet Orally Once a dayTaking Atorvastatin Calcium 10 MG Tablet 1 tablet Orally Once a dayTaking Atenolol 50 MG Tablet 1 tablet Orally Once a dayNot-Taking/PRNIron 325 (65 Fe) MG Tablet as directed Orally Medrol 4 MG Tablet Therapy Pack as directed Orally DailyVitamin C Lisinopril 10 MG Tablet 1 tablet Orally Once a dayMedication List reviewed and reconciled with the patientNot-Taking/PRN Iron 325 (65 Fe) MG Tablet as directed Orally Not-Taking/PRN Medrol 4 MG Tablet Therapy Pack as directed Orally DailyNot-Taking/PRN Vitamin C Not-Taking/PRN Lisinopril 10 MG Tablet 1 tablet Orally Once a dayMedication List reviewed and reconciled with the patient * Allergies:?Adhesiveyes[Aller gies Verified] Objective: * Vitals:?Ht: 5 ft, Wt: 187, B NE: 36.52, Shoe size: 7.5, Ht-cm: 152.4 cm, Wt-k.82 kg. * ???Past Orders: ???Lab:HEMOGLOBIN A1C (GLYCO HEMOGLOBIN) (Order Date - 11/18/2023) (Collection Date - 11/18/2023) ? Value Reference Range ?HEMOGLOBIN A1C % (HH) 6.3 * Examination: ???Ophthalmology Referral: ?DIABETES EYE EXAM?Nails: ?NAILS are:?elongated,overgrown, and non-dystrophic, 1-5.?Dermatologic: ?SKIN FINDINGS:?Skin exam reveals normal texture, elasticity, and tugor. There are no masses. 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 Plan: * Treatment: 2.?Other nail disorders?Procedure: 72276-XCDJ NAIL(S) * Procedures:?Keratoma Treatment:?Parring or Cutting of Benign Hyperkeratotic Lesion(s)?02596-CW Self Pay Non-Covered Callus care-.?Nail Reduction:?Nail Reduction?10744-WB Trimming of non-dystrophic nails.? * Procedure Codes:?31572 TRIM SKIN LESIONS, OVER 4 $60, Modifiers: GY 82110 TRIM NAIL(S), Modifiers: GY * Follow Up:?3 Months * Images: * Sign off status: Completed true * Provider:?Monika Rincon DPM Date:?2023 Generated for Rafi clement/Amol/eTjonahsmitting on:?12/07/2024 01:32 PM EST History and Physical Notes * Examination Category Sub-Category Detail Notes Category Not es Dermatologic SKIN FINDINGS: Skin exam reveal s normal texture, elasticity, and tugor. There are no masses. The interspaces are clear HYPERKERATOSIS: 1st MTHbilateral,TA, T5, 5th MTH, right Ophthalmology Referral DIABETES EYE EXAM Diabeti c Retinopathy Screening:: Yes 01/07/24 Nails NAILS are: elongated,overgr own, and non-dystrophic, 1-5
--- OUTSIDE RECORDS SUMMARY | 2024-12-07 13:32 | XMS_ITS | Encounter Summary ---
Author Organization [facility] Address [address] [place] [address] Phone Care Team Providers Care Field Service Rep Name Role Phone Tushar Ruiz MD Primary Care Provider [phone] Encounter Details Date Type Department Care Team (Late st Contact Info) Description 02/18/2023 Telephone [facility] [address] [place] [phone] Pearl Sloan Social History Tobacco Use Types Packs/Day Years Used Date Smoking Tobacco: Never Smokeless Tobacco: Never Alcohol Use Standard Drinks/Week Comments Never 0 (1 standard drink = 0.6 oz pur e alcohol) Comments Unknown Sex and Gender Information Value Date Recorded Sex Assigned at Not on file Legal Sex Female 1:45 PM EDT Gender Identity Not on file Sexual Orientation Not on file COVID-19 Exposure Response Date Recorded In the last 10 days, have yo u been in contact with someone who was confirmed or suspected to have Coronavirus/COVID-19? No / Unsure 02/09/2023 7:14 AM EDT documented as of this encounter Miscellaneous Notes * Telephone Encounter - Chelsea Avila - 02/18/2023 1:15 PM EDT I resubmitted the prescription under Dr Bolanso. Now waiting on approval. * Telephone Encounter - Pearl Sloan - 02/18/2023 9:03 AM EDT PT says that she was recently prescribed hydroCHLOROthiazide , but when she went to pick it up at her pharmacy they could not fill it due to a license issue with the Bridgett Youssef documented in this encounter Plan of Treatment Upcoming Encounters Date Type Department Care Team (Latest Contact Info) Description 12/16/2024 Orders Only [facility]. [address] [phone] Pearl Schmitt ARNP [address] [address] Chronic kidney disease, stage 4 (severe) (HCC); Hypertension; Anemia in chronic kidney disease; Secondary hyperparathyroidism of renal origin (HCC) 01/31/2025 3:30 PM EDT Office Visit [facility] P.. [address] [address] Pearl Schmitt ARNP [address] [address] documented as of this encounter Visit Diagnoses Not on filedocumented in this encounter Care Teams Field Service Rep Relationship Specialty Start Date End Date Tushar Ruiz MD [address] [place] [address] PCP - General Internal Medicine 04/16/22 documented as of this encounter
--- OUTSIDE RECORDS SUMMARY | 2024-12-07 13:32 | XMS_ITS | Patient Health Record ---
Author Organization [facility] Address [address] [place] [address] Care Team Providers Care Cmm Operator Name Role Phone Tushar Ruiz MD Primary Care Provider Sung Awad Monika Unavailable [phone] Allergies Allergen (clinical drug ingredient) Drug/Non Drug Allergy documented on EMR Reaction Allergy Type Onset Date Status Adhesive Unknown Allergy Active Results Component Value Reference Range Notes *Uric Acid, Serum Reviewed date:12/23/2023 11:33:44 AM Interpretation:High Performing Lab: Notes/Report: High Uric Acid, Serum 7.8 *Sedimentation Rate-Westergr en Reviewed date:12/23/2023 11:34:15 AM Interpretation:High Performing Lab: Notes/Report: High Sedimentation Rate-Westergren 34 C-Reactive Protein, Quant Reviewed date:12/23/2023 11:34:35 AM Interpretation:High Performing Lab: Notes/Report: High C-Reactive Protein, Quant .72 X ray : Foot, left 3V Reviewed date:12/15/2023 05:20:19 PM Interpretation:See Examination above Performing Lab: Notes/Report: See Examination above HEMOGLOBIN A1C (GLYCOHEMOGLO BIN) Reviewed date:11/30/2024 10:51:11 AM Interpretation: Performing Lab: Notes/Report: HEMOGLOBIN A1C % (HH) 6.3 Reason For Referral No Information Medications Medication SIG (Take, Route, Frequency, Duration) [...] Once a day for 30 day(s) Not-Taking Immunizations Vaccine Route Administration Date Status Comme nts COVID-19 Pfizer BioNTech Vaccine Unknown 08/12/2021 Administered First Dose: 01/07/2021 Second Dose: 01/28/2021 Influenza Unknown 12/23/2023 Refused Social History Tobacco Use: Social History Observation [...] Are you an other tobacco user? 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) Active confirmed Problem Acquired deformity of right foot (480934968041 46218) PlantarFlexion of metatarsal of right foot (M21.6X1) Active confirmed Vital Signs Blood pressure diastolic 80 mm Hg 11/30/2024 Height 5 ft in 11/30/2024 Blood pressure systolic 130 mm Hg 11/30/2024 Weight 185 lbs 11/30/2024 BMI 36.13 kg/m2 11/30/2024 Procedures Procedure Date Ordered Date Performed Result Body Sit e 54063-XFLX SKIN LESIONS, OVER 4 12/23/2023 N/A 80490-ORQO NAIL(S) 12/23/2023 N/A 33637-JAGF SKIN LESIONS, OVER 4 04/03/2024 N/A 71161-UONP NAIL(S) 04/03/2024 N/A 26359-GGMO SKIN LESIONS, OVER 4 08/25/2024 N/A 47133-XSVE NAIL(S) 08/25/2024 N/A Encounters Encounter Location Date Provider Diagnosis [address] [address] 12/15/2023 Monika Black Acute idiopathic gout of left foot M10.072 ; Plantar fasciitis of left foot M72.2 ; Cellulitis of left foot L03.116 ; Left foot pain M79.672 ; Bursitis of left foot M77.52 and Calcaneal spur of left foot M77.[address] [address] 12/23/2023 Monika Black 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 et plantaris L85.1 ; Acute idiopathic gout of left foot M10.072 ; Other nail disorders L60.8 and Pain in left foot M79.[address] [address] 04/03/2024 Monika Black 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 et plantaris L85.1 and Other nail disorders L60.[address] [address] 08/25/2024 Monika Black 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 et plantaris L85.1 and Other nail disorders L60.[address] [address] 11/30/2024 Monika Black 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 et plantaris L85.1 and Other nail disorders L60.[address] [address] 12/13/2023 Monika Black [address] [address] 12/15/2023 [facility] [place] [address] [place] [address] 12/16/2023 Monika Sergey [facility] Encounter Date Diagnosis (ICD Code) Assessment Notes Treatment Notes Treatment Clinical Notes Section Notes 12/15/2023 Plantar fasciitis of left foot (ICD-10 - M72.2) Patient Educated with: HEEL CORD STRETCHES.pdf (HEEL CORD STRETCHES.pdf) 12/15/2023 Acute idiopathic gout of left foot (ICD-10 - M10.072) 12/23/2023 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 et plantaris (ICD-10 - L85.1) 12/23/2023 Acute idiopathic gout of left foot (ICD-10 - M10.072) Patient Educated with: GOUT.pdf (GOUT.pdf) Patient Educated with: LOW PURINE DIET.pdf (LOW PURINE DIET.pdf) 04/03/2024 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 et plantaris (ICD-10 - L85.1) 08/25/2024 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 et plantaris (ICD-10 - L85.1) 11/30/2024 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 et plantaris (ICD-10 - L85.1) 12/23/2023 Other nail disorders (ICD-10 - L60.8) 11/30/2024 Other nail disorders (ICD-10 - L60.8) 08/25/2024 Other nail disorders (ICD-10 - L60.8) 04/03/2024 Other nail disorders (ICD-10 - L60.8) 12/15/2023 Cellulitis of left foot (ICD-10 - L03.116) 12/15/2023 Left foot pain (ICD-10 - M79.672) 12/23/2023 Pain in left foot (ICD-10 - M79.672) 12/15/2023 Bursitis of left foot (ICD-10 - M77.52) 12/15/2023 Calcaneal spur of left foot (ICD-10 - M77.32) Plan Of Treatment Pending Test Test Name Order Date *CBC With Differential/Platelet 12/15/19 24 43600-KRWW SKIN LESIONS, OVER 4 12/23/19 24 82949-UAKA SKIN LESIONS, OVER 4 09/06/20 23 48986-HBDH SKIN LESIONS, OVER 4 02/09/20 23 21634-YVRB SKIN LESIONS, OVER 4 05/24/20 23 84092-LOGQ SKIN LESIONS, OVER 4 04/03/20 24 74463-UPGR SKIN LESIONS, OVER 4 08/25/20 24 27644-CVVI SKIN LESIONS, OVER 4 12/20/19 96640-BVTB SKIN LESIONS, OVER 4 03/24/20 92512-CAEV SKIN LESIONS, OVER 4 06/26/20 79820-PMQC SKIN LESIONS, OVER 4 09/25/20 22106-BLBI SKIN LESIONS, OVER 4 01/06/20 10385-AXWK SKIN LESIONS, OVER 4 04/09/20 90664-VLPV SKIN LESIONS, OVER 4 07/16/20 22 62330-WVKW SKIN LESIONS, OVER 4 11/05/19 23 21841-FJMW SKIN LESIONS, OVER 4 10/08/20 11 84251-AENC SKIN LESIONS, OVER 4 01/04/20 12 98399-EIOK SKIN LESIONS, OVER 4 03/28/20 12 97329-JLWU SKIN LESIONS, OVER 4 06/27/20 12 26478-HDEC SKIN LESIONS, OVER 4 09/26/20 12 46102-SBQB SKIN LESIONS, OVER 4 07/03/20 13 88481-CWHQ SKIN LESIONS, OVER 4 10/02/20 13 11938-WFDL SKIN LESIONS, OVER 4 01/09/20 14 13585-WLNL SKIN LESIONS, OVER 4 04/12/20 14 73714-CICX SKIN LESIONS, OVER 4 07/16/20 14 31260-DXHY SKIN LESIONS, OVER 4 10/01/20 14 70034-BNNM SKIN LESIONS, OVER 4 01/01/20 15 18276-HVLI SKIN LESIONS, OVER 4 04/01/20 15 53451-FHKX SKIN LESIONS, OVER 4 07/01/20 15 84226-LSOS SKIN LESIONS, OVER 4 09/30/20 15 51136-FFTN SKIN LESIONS, OVER 4 12/30/19 16 22526-EMEE SKIN LESIONS, OVER 4 04/06/20 16 25025-EHGC SKIN LESIONS, OVER 4 07/09/20 16 52553-EURB SKIN LESIONS, OVER 4 10/05/20 16 61515-FXBM SKIN LESIONS, OVER 4 01/05/20 17 55111-RZTK SKIN LESIONS, OVER 4 04/05/20 17 34738-JBEE SKIN LESIONS, OVER 4 07/05/20 17 04964-VARL SKIN LESIONS, OVER 4 10/04/20 17 61059-NRWX SKIN LESIONS, OVER 4 01/11/20 18 66738-TPSD SKIN LESIONS, OVER 4 01/24/20 13512-XLGA SKIN LESIONS, OVER 4 06/05/20 19691-PVYX SKIN LESIONS, OVER 4 09/07/20 19 39070-XJJN SKIN LESIONS, OVER 4 12/07/19 20 46645-NNIO SKIN LESIONS, OVER 4 03/14/20 20 53073-FJUY SKIN LESIONS, OVER 4 06/17/20 20 42817-LVLG SKIN LESIONS, OVER 4 09/16/20 20 62127-PMWV SKIN LESIONS, 2 TO 4 04/03/20 13 60620-DOXS SKIN LESIONS, 2 TO 4 12/27/19 13 44580-XZOX NAIL(S) 04/03/2013 36309-DGWN NAIL(S) 09/26/2012 40912-DCHW NAIL(S) 12/26/2012 67578-RMLD NAIL(S) 07/03/2013 77396-RKJF NAIL(S) 10/02/2013 13388-AXHF NAIL(S) 06/27/2012 35514-KGDH NAIL(S) 03/28/2012 11000-WOJT NAIL(S) 01/04/2012 06866-UODQ NAIL(S) 10/08/2011 78597-SKCQ NAIL(S) 09/30/2015 19662-JAXV NAIL(S) 07/01/2015 13877-NVSY NAIL(S) 04/01/2015 92476-YWWN NAIL(S) 12/31/2014 69467-IQEV NAIL(S) 10/01/2014 18650-KLGM NAIL(S) 07/16/2014 05440-JYAP NAIL(S) 04/12/2014 45468-GECC NAIL(S) 01/08/2014 09943-KQOV NAIL(S) 09/16/2020 97569-WTRI NAIL(S) 06/17/2020 39711-UKHL NAIL(S) 03/14/2020 38878-ADKS NAIL(S) 12/07/2019 54497-FMNC NAIL(S) 09/07/2019 68405-BQGC NAIL(S) 06/05/2019 71993-QCVG NAIL(S) 01/23/2019 23105-RKJN NAIL(S) 01/10/2018 83051-HVOZ NAIL(S) 10/04/2017 62811-EMJW NAIL(S) 07/05/2017 39516-QNPV NAIL(S) 04/05/2017 78399-OERK NAIL(S) 01/04/2017 89146-RSGH NAIL(S) 10/05/2016 62780-UOPV NAIL(S) 07/09/2016 44026-EMPJ NAIL(S) 04/06/2016 93829-BYRD NAIL(S) 12/30/2015 09900-WJWG NAIL(S) 11/05/2022 44057-XSBI NAIL(S) 07/16/2022 78572-HZAB NAIL(S) 04/09/2022 07480-DCPZ NAIL(S) 01/05/2022 89293-ZRFD NAIL(S) 09/25/2021 17034-AMYD NAIL(S) 06/26/2021 35906-WEIU NAIL(S) 03/24/2021 13581-MCGK NAIL(S) 12/19/2020 83563-VVIN NAIL(S) 08/25/2024 55556-BYPO NAIL(S) 04/03/2024 68644-WUDZ NAIL(S) 05/24/2023 01050-OIQL NAIL(S) 02/08/2023 14169-EROF NAIL(S) 09/06/2023 12202-XGMF NAIL(S) 12/23/2023 Next Appt Details Provider Name:Monika Rincon , 03/08/2025 03:00:00 PM, [address] [place], [address], Insurance Providers Payer Name Payer Address Payer Phone Subscriber Number Group Number Insured Name Patient Relationship to Insured Coverage Start Date Coverage End Date Medicare [facility] [address] [place] [address] [id number] [facility] [place] Self - patient is the insured 1 [employer] [address] [place] [address] [id number] Jay Em, [place] Self - patient is the insured Medical (General) History Medical History History ICD Code mumps measles hypertension chicken pox Arthritis Type 2 diabetes mellitus E11.9 Chronic kidney disease, stage 3 unspecif ied N18.30 Type 2 diabetes mellitus wit h chronic kidney disease, without long-term current use of insulin, unspecified CKD stage E11.22 Surgical History Surgery Date(Month/Year) dilatation and curettage 1999, 2004 Breast Surgery 12/29/2021 D&C 02/19/22 Hospitalization History Reason Date(Month/Year) [facility] removal polip from uterus
--- OUTSIDE RECORDS SUMMARY | 2024-12-07 13:32 | XMS_ITS ---
Author Organization [facility] Address [address] [place] [address] Care Team Providers Care Wine Specialist Name Role Phone Joseph ERWIN, Tushar Primary Care Provider UnavailMonika Gallegos [phone] Encounters Encounter Location Date Provider Diagnosis [facility] [address] [place] [address] 07/13/2024 Monika Rincon Plan Of Treatment Next Appt Details Provider Name:Monika Rincon , 03/08/2025 03:00:00 PM, [address] [place], [address], Progress Notes * Blanca WOODDOB:[birth year] (89 yo F)Acc No.[id number]:07/13/2024 Progress Note Patient:?ISRAEL Blanca English Provider:?Monika Rincon DPM :1935???Age:88 Y???Sex:Female D ate:07/13/2024 Address:[address] [place] [address] Pcp:Tushar Ruiz MD Subjective: * Chief Complaints: * ??? * Medical History:? Objective: * Vitals:? Assessment: Plan: * Treatment: * Images: * The named appointment provid er may or may not be the originator of this progress note, and it is not deemed complete until electronically signed by the appointment provider. Sign off status: Pending * Provider:?Monika Rincon DPM Date:?2023 Generated for Rafi clement/Amol/Luis Manuel on:?12/07/2024 01:32 PM EST
--- OUTSIDE RECORDS SUMMARY | 2024-12-07 13:32 | XMS_ITS | Clinical Summary ---
Author Organization [facility]. Address [address] [facility] [address] [place] [address] Phone Care Team Providers Care Blueprint Reader Name Role Phone Tushar Ruiz MD Primary Care Provider [phone] Allergies Active Allergy Reactions Criticality Noted Date Comments Adhesive Tape Other (see comments),Rash Low 022 Medications letrozole (FEMARA) 2.5 MG chemo tablet Take 2.5 mg by mouth 1 (one) time each day 04/17/2022 Active atorvastatin (LIPITOR) 10 MG tablet Take 1 tablet by mouth Active atenolol (TENORMIN) 50 MG tablet Take 1 tablet by mouth Active Cholecalciferol (Vitamin D3) 50 MCG (1999) tablet Take by mouth Active hydrALAZINE 25 MG tablet Take 25 mg by mouth in the morning and 25 mg in the evening. Active lisinopril-hydr oCHLOROthiazide (PRINZIDE,ZESTO RETIC) 20-12.5 MG per tabletIndicatio ns:Stage 3a chronic kidney disease (HCC),Hypertens jaylon disorder Take 1 tablet by mouth 1 (one) time each day 90 tablet 3 02/08/2024 Active allopurinol (ZYLOPRIM) 100 MG tablet Take 100 mg by mouth 1 (one) time each day Active Active Problems Problem Noted Date Diagnosed Date Chronic kidney disease, stage 4 (severe) 024 Anemia in chronic kidney disease 06/05/2024 Secondary hyperparathyroidism of renal origin Renal mass 05/25/2023 Hypertension 04/27/2022 Stage 3 chronic kidney disease 04/27/2022 Resolved Problems Problem Noted Date Diagnosed Date Resolved Date Acquired deformity of right foot 02/15/2023 10/05/2023 Acquired hammer toe of left foot 02/15/2023 10/05/2023 Hyperlipidemia 04/27/2022 04/27/2022 Obese class I 04/27/2022 04/27/2022 Polyp of corpus uteri 04/27/20222021 Postmenopausal bleeding 04/27/202204/17 Malignant neoplasm of upper- outer quadrant of right female breast 01/23/2022 04/27/2022 Encounters Date Type Department Care Team Description 10/05/2024 3:15 PM EST [facility] [address] [address] Pearl Schmitt ARNP Chronic kidney disease, stage 4 (severe) (HCC) (Primary Dx); Hypertension; Anemia in chronic kidney disease; Secondary hyperparathyroidism of renal origin (HCC) 09/28/2024 Travel from Last 3 Months Immunizations Name Administration Dates Next Due Pfizer SARS-COV-2 01/28/2021,01/07/2021 Family History Medical History Relation Comments Diabetes Brother Kidney disease Brother Cancer Father Cancer Mother Relation Status Comments Brother Father Mother Social History Tobacco Use Types Packs/Day Years Used Date Smoking Tobacco: Never Smokeless Tobacco: Never Tobacco Cessation:Counseling Given: Not Answered Alcohol Use Standard Drinks/Week Comments Never 0 (1 standard drink = 0.6 oz pur e alcohol) Comments Unknown Sex and Gender Information Value Date Recorded Sex Assigned at Not on file Legal Sex Female 1:45 PM EDT Gender Identity Not on file Sexual Orientation Not on file Last Filed Vital Signs Vital Sign Reading Time Taken Comments Blood Pressure 137/64 10/05/2024 3:24 PM EST Pulse 59 10/05/2024 3:24 PM EST Temperature - - Respiratory Rate - - Oxygen Saturation 98% 11/11/2023 3:42 PM EST Inhaled Oxygen Concentration - - Weight 84.2 kg (185 lb 9.6 oz) 10/05/2024 3:24 P M EST Height 154.9 cm (5' 1 ) 05/25/2023 3:42 PM EDT Body Mass Index 35.07 05/25/2023 3:42 PM EDT Plan of Treatment Upcoming Encounters Date Type Department Care Team (Latest Contact Info) Description 12/16/2024 Orders Only [facility]. [address] [address] Pearl Schmitt ARNP [address] [address] Chronic kidney disease, stage 4 (severe) (HCC); Hypertension; Anemia in chronic kidney disease; Secondary hyperparathyroidism of renal origin (HCC) 01/31/2025 3:30 PM EDT [facility] [address] [address] Pearl Schmitt ARNP [address] [address] Health Maintenance Due Date Last Done Comments Pneumococcal Vaccine: 65+ Ye ars (1 of 2 - PCV) 1941 Influenza Vaccine (#1) 2024 Hepatitis B Vaccine Aged Out No longe r eligible based on patient's age to complete this topic Insurance MEDICARE [facility] MEDICARE [facility] Care Teams Blueprint Reader Relationship Specialty Start Date End Date Tushar Ruiz MD [address] [place] [address] PCP - General Internal Medicine 04/16/22
== END 2024-12-07 13:06 | disposition home or self-care (01) ==
PROVIDERS: PCP Internal Medicine; Visit Provider Surgery
DX: C50.911 Malignant neoplasm of unspecified site of right female breast (principal)
CPT/HCPCS: 99213; G2211

== ENCOUNTER → 2024-12-07 12:38 | Outpatient (BNVA) | payer MEDICARE, SELFPAY | PROVIDERS: PCP Internal Medicine; Visit Provider Surgery | DX: C50.911 Malignant neoplasm of unspecified site of right female breast (principal) | CPT/HCPCS: 99212 ==

== ENCOUNTER 2025-01-09 12:14 | Outpatient (REF) | payer MEDICARE, SELFPAY ==
--- NOTE | ~2025-01-09 | MM_ITS ---
EXAMINATION: MM DIAGNOSTIC DIGITAL BREAST TOMOSYNTHESIS, BILATERAL CLINICAL INFORMATION: [History of right breast cancer in 2021 status post lumpectomy. No chemotherapy or radiation. Left benign biopsies. COMPARISON: Mammography: Comparison is made with relevant prior exams. TECHNIQUE: Digital breast mammography with tomosynthesis is performed in both the craniocaudal and mediolateral oblique views along with computer-aided detection (CAD). FINDINGS: There are scattered areas of fibroglandular density (ACR BI-RADS breast composition Category b). Status post right lumpectomy changes are stable. Left marker clips. There are no significant masses, abnormal calcifications, or other abnormalities. Results are provided to the patient at time of visit by the technologist. MM/MM tomosynthesis diagnostic BI IMPRESSION: Status post right lumpectomy. No mammographic evidence of malignancy. ASSESSMENT: BI-RADS BI-RADS 2 - Benign Findings RECOMMENDATION: 1 year F/U This patient's information was entered into a reminder system with a target due date for their next mammogram. Electronically signed by: Anabell Brooek DO 01/09/2025 12:57 PM EDT
--- OUTSIDE RECORDS SUMMARY | 2025-01-09 14:59 | XMS_ITS ---
Author Organization [facility] Address [address] [place] [address] Care Team Providers Care Vending Machine Operator Name Role Phone Joseph ERWIN, Tushar Primary Care Provider UnavailMonika Gallegos Unavailable [phone] Allergies Allergen (clinical drug ingredient) Drug/Non Drug [...] Ordered Date Performed Result Body Sit e 51614-VYJL SKIN LESIONS, OVER 4 08/25/2024 N/A 32132-UACI NAIL(S) 08/25/2024 N/A Encounters Encounter Location Date Provider Diagnosis [facility] [address] 08/25/2024 Monika Rincon 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 et plantaris L85.1 and Other nail disorders L60.8 Assessments Encounter Date Diagnosis (ICD Code) Assessment Notes Treatment Notes Treatment Clinical Notes Section Notes 08/25/2024 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 et plantaris (ICD-10 - L85.1) 08/25/2024 Other nail disorders (ICD-10 - L60.8) Plan Of Treatment Pending Test Test Name Order Date 00201-IHVS SKIN LESIONS, OVER 4 08/25/20 24 24487-WCBO NAIL(S) 08/25/2024 Next Appt Details Follow Up: 3 Months, Reason: Provider Name:Monika Rincon , 03/08/2025 03:00:00 PM, [address] [place] [address], [address], Procedure Notes * Category Sub-Category Detail Notes Keratoma Treatment Parring or Cutting o f Benign Hyperkeratotic Lesion(s) 31809-LT Self Pay Non-Covered Callus care- Nail Reduction Nail Reduction 94615-HZ Trimmin g of non-dystrophic nails Progress Notes * Blanca WOODDOB:[birth year] (89 yo F)Acc No.[id number]:08/25/2024 Progress Note Patient:?Cely Blanca English Provider:?Monika Rincon DPM :1935???Age:89 Y???Sex:Female D ate:08/25/2024 Address:[address] Pcp:Tushar Ruiz MD Subjective: * Chief Complaints: [...] * Vitals:?Ht: 5 ft, Wt: 187, B NJ: 36.52, Shoe size: 7.5, Ht-cm: 152.4 cm, Wt-k.82 kg. * ???Past Orders: ???Lab:HEMOGLOBIN A1C (GLYCO HEMOGLOBIN) (Order Date - 11/18/2023) (Collection Date - 11/18/2023) ? Value Reference Range ?HEMOGLOBIN A1C % (HH) 6.3 * Examination: ???Ophthalmology Referral: ?DIABETES EYE EXAM?Diabetic Retinopathy Screening:?Yes 01/07/24?Nails: ?NAILS are:?elongated,overgrown, and non-dystrophic, 1-5.?Dermatologic: ?SKIN FINDINGS:?Skin exam reveals normal texture, elasticity, and tugor. There are no masses. 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 Plan: * Treatment: 2.?Other nail disorders?Procedure: 09886-DXUQ NAIL(S) * Procedures:?Keratoma Treatment:?Parring or Cutting of Benign Hyperkeratotic Lesion(s)?57127-HT Self Pay Non-Covered Callus care-.?Nail Reduction:?Nail Reduction?51715-DY Trimming of non-dystrophic nails.? * Procedure Codes:?62977 TRIM SKIN LESIONS, OVER 4 $60, Modifiers: GY 82246 TRIM NAIL(S), Modifiers: GY * Follow Up:?3 Months * Images: * Sign off status: Completed true * Provider:?Monika Rincon DPM Date:?2023 Generated for Rafi clement/Amol/eTransmitting on:?01/09/2025 02:59 PM EDT History and Physical Notes * Examination Category [...]
--- OUTSIDE RECORDS SUMMARY | 2025-01-09 14:59 | XMS_ITS | Patient Health Record ---
Author Organization [facility] Address [address] [place] [address] Care Team Providers Care Receipt And Report Clerk Name Role Phone Tushar Ruiz MD Primary Care Provider Monika Umana Unavailable [phone] Allergies Allergen (clinical drug ingredient) Drug/Non Drug Allergy documented on EMR Reaction Allergy Type Onset Date Status Adhesive Unknown Allergy Active Results Component Value Reference Range Notes HEMOGLOBIN A1C (GLYCOHEMOGLO BIN) Reviewed date:11/30/2024 10:51:11 [...] disease due to type 2 diabetes mellitus (876695973173 ) Type 2 diabetes mellitus with diabetic chronic kidney disease (E11.22) Active confirmed Problem Acquired hammer toe of right foot (885538879219 9105) Other hammer toe(s) (acquired), right foot (M20.41) Active confirmed Problem Acquired hammer toe of left foot (185480814327 9103) Other hammer toe(s) (acquired), left foot (M20.42) Active confirmed Problem Primary gout (65182119) Acute idiopathic gout of left foot (M10.072) Active confirmed Problem Acquired deformity of right foot (955308428804 45735) PlantarFlexion of metatarsal of right foot (M21.6X1) Active confirmed Vital Signs Blood pressure diastolic 80 mm Hg 11/30/2024 Height 5 ft in 11/30/2024 Blood pressure systolic 130 mm Hg 11/30/2024 Weight 185 lbs 11/30/2024 BMI 36.13 kg/m2 11/30/2024 Procedures Procedure Date Ordered Date Performed Result Body Sit e 09228-UQOY SKIN LESIONS, OVER 4 04/03/2024 N/A 39239-RKUS NAIL(S) 04/03/2024 N/A 40589-IQVD SKIN LESIONS, OVER 4 08/25/2024 N/A 34983-UBEG NAIL(S) 08/25/2024 N/A Encounters Encounter Location Date Provider Diagnosis [facility] [place] [address] 04/03/2024 Monika Rincon 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 et plantaris L85.1 and Other nail disorders L60.[address] [facility] [address] [address] 08/25/2024 Monika Black 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 et plantaris L85.1 and Other nail disorders L60.8 [facility] [place] [address] 11/30/2024 Monika Black 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 et plantaris L85.1 and Other nail disorders L60.8 Assessments Encounter Date Diagnosis (ICD Code) Assessment Notes Treatment Notes Treatment Clinical Notes Section Notes 04/03/2024 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 et plantaris (ICD-10 - L85.1) 08/25/2024 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 et plantaris (ICD-10 - L85.1) 11/30/2024 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 et plantaris (ICD-10 - L85.1) 11/30/2024 Other nail disorders (ICD-10 - L60.8) 08/25/2024 Other nail disorders (ICD-10 - L60.8) 04/03/2024 Other nail disorders (ICD-10 - L60.8) Plan Of Treatment Pending Test Test Name Order Date *CBC With Differential/Platelet 12/15/19 24 09113-MTWL SKIN LESIONS, OVER 4 12/23/19 24 94774-GQPL SKIN LESIONS, OVER 4 09/06/20 23 70538-RCWJ SKIN LESIONS, OVER 4 02/09/20 23 67471-TXRP SKIN LESIONS, OVER 4 05/24/20 23 88785-IILF SKIN LESIONS, OVER 4 04/03/20 24 28854-ZMDJ SKIN LESIONS, OVER 4 08/25/20 24 25829-SHPC SKIN LESIONS, OVER 4 12/20/19 21 68959-DGRV SKIN LESIONS, OVER 4 03/24/20 21 52339-QJXR SKIN LESIONS, OVER 4 06/26/20 21 79828-QXGN SKIN LESIONS, OVER 4 09/25/20 21 17883-HTSV SKIN LESIONS, OVER 4 01/06/20 22 87717-HETO SKIN LESIONS, OVER 4 04/09/20 22 73872-YJRR SKIN LESIONS, OVER 4 07/16/20 22 87557-OTRK SKIN LESIONS, OVER 4 11/05/19 23 64577-EIAQ SKIN LESIONS, OVER 4 10/08/20 11 47983-BBJR SKIN LESIONS, OVER 4 01/04/20 12 32110-TBKR SKIN LESIONS, OVER 4 03/28/20 12 62071-AFLN SKIN LESIONS, OVER 4 06/27/20 12 91756-WWXD SKIN LESIONS, OVER 4 09/26/20 12 81208-WADN SKIN LESIONS, OVER 4 07/03/20 13 58446-LMPL SKIN LESIONS, OVER 4 10/02/20 13 28182-AKKC SKIN LESIONS, OVER 4 01/09/20 14 05877-QLGU SKIN LESIONS, OVER 4 04/12/20 14 23712-WHID SKIN LESIONS, OVER 4 07/16/20 14 40473-MYVW SKIN LESIONS, OVER 4 10/01/20 14 60719-BHBB SKIN LESIONS, OVER 4 01/01/20 15 98514-BDBE SKIN LESIONS, OVER 4 04/01/20 15 14625-ZFPA SKIN LESIONS, OVER 4 07/01/20 15 03707-XSCP SKIN LESIONS, OVER 4 09/30/20 15 69374-LDSV SKIN LESIONS, OVER 4 12/30/19 16 79952-MFJN SKIN LESIONS, OVER 4 04/06/20 16 53917-RXWP SKIN LESIONS, OVER 4 07/09/20 16 19743-DYQJ SKIN LESIONS, OVER 4 10/05/20 16 00189-UIHU SKIN LESIONS, OVER 4 01/05/20 17 24560-NPCE SKIN LESIONS, OVER 4 04/05/20 17 78692-YKGP SKIN LESIONS, OVER 4 07/05/20 17 55086-PZRB SKIN LESIONS, OVER 4 10/04/20 17 11182-FJKB SKIN LESIONS, OVER 4 01/11/20 18 58643-MFJW SKIN LESIONS, OVER 4 01/24/20 19 59912-ZEFK SKIN LESIONS, OVER 4 06/05/20 19 68168-JSFL SKIN LESIONS, OVER 4 09/07/20 19 68297-YIEZ SKIN LESIONS, OVER 4 12/07/19 20 59195-ECFD SKIN LESIONS, OVER 4 03/14/20 20 21547-NGZQ SKIN LESIONS, OVER 4 06/17/20 20 65059-UOVA SKIN LESIONS, OVER 4 09/16/20 20 48693-CYMK SKIN LESIONS, 2 TO 4 04/03/20 13 14263-HZMU SKIN LESIONS, 2 TO 4 12/27/19 13 27654-SDDH NAIL(S) 04/03/2013 90280-QXUB NAIL(S) 09/26/2012 94957-DOHF NAIL(S) 12/26/2012 90151-WVEG NAIL(S) 07/03/2013 74234-MZYD NAIL(S) 10/02/2013 07321-FJJF NAIL(S) 06/27/2012 54161-QMPQ NAIL(S) 03/28/2012 99478-ZTEN NAIL(S) 01/04/2012 18473-UASN NAIL(S) 10/08/2011 56157-LWMB NAIL(S) 09/30/2015 90779-XFKP NAIL(S) 07/01/2015 85348-KZUA NAIL(S) 04/01/2015 04023-KYDK NAIL(S) 12/31/2014 52393-WUVO NAIL(S) 10/01/2014 69406-GGIG NAIL(S) 07/16/2014 07551-ULVH NAIL(S) 04/12/2014 11350-WFFE NAIL(S) 01/08/2014 75224-IJNU NAIL(S) 09/16/2020 95567-OJQF NAIL(S) 06/17/2020 73669-KLAU NAIL(S) 03/14/2020 36737-IMML NAIL(S) 12/07/2019 28819-QMEI NAIL(S) 09/07/2019 25798-QKLV NAIL(S) 06/05/2019 80949-YLXW NAIL(S) 01/23/2019 71553-VQDS NAIL(S) 01/10/2018 19218-VNXI NAIL(S) 10/04/2017 97012-DQAG NAIL(S) 07/05/2017 87456-GPPA NAIL(S) 04/05/2017 83675-EXPY NAIL(S) 01/04/2017 78251-ENLU NAIL(S) 10/05/2016 78689-SRGD NAIL(S) 07/09/2016 15589-BGOW NAIL(S) 04/06/2016 07028-LMXQ NAIL(S) 12/30/2015 25220-GPRK NAIL(S) 11/05/2022 18311-YCQF NAIL(S) 07/16/2022 34066-PASV NAIL(S) 04/09/2022 74125-SUSA NAIL(S) 01/05/2022 28420-EDJY NAIL(S) 09/25/2021 99557-KLZU NAIL(S) 06/26/2021 31868-KBMI NAIL(S) 03/24/2021 05285-VDMZ NAIL(S) 12/19/2020 16736-ITLV NAIL(S) 08/25/2024 57278-EWFM NAIL(S) 04/03/2024 14090-WMAG NAIL(S) 05/24/2023 74338-VFNK NAIL(S) 02/08/2023 45305-EUKO NAIL(S) 09/06/2023 38348-ZJPH NAIL(S) 12/23/2023 Next Appt Details Provider Name:Monika Rincon , 03/08/2025 03:00:00 PM, [address] [place], [address], Insurance Providers Payer Name Payer Address Payer Phone Subscriber Number Group Number Insured Name Patient Relationship to Insured Coverage Start Date Coverage End Date Medicare National Govt [facility] [address] [place] [address] [id number] Cely Blanca Self - patient is the insured 1 [employer] Blue [employer] [address] [place] [address] [id number] 0 [place], [place] Self - patient is the insured Medical (General) History Medical History History ICD Code mumps measles hypertension chicken pox Arthritis Type 2 diabetes mellitus E11.9 Chronic kidney disease, stage 3 unspecif ied N18.30 Type 2 diabetes mellitus wit h chronic kidney disease, without long-term current use of insulin, unspecified CKD stage E11.22 Surgical History Surgery Date(Month/Year) dilatation and curettage 2004 Breast Surgery 12/29/2021 D&C 02/19/22 Hospitalization History Reason Date(Month/Year) [facility] removal polip from uterus
--- OUTSIDE RECORDS SUMMARY | 2025-01-09 14:59 | XMS_ITS | Encounter Summary ---
Author Organization [facility] Address [address] [place] [address] Phone Care Team Providers Care Receivables Specialist Name Role Phone Tushar Ruiz MD Primary Care Provider [phone] Encounter Details Date Type Department Care Team (Late st Contact Info) Description 02/18/2023 Telephone [facility] [address] [place] [address] Pearl Sloan Social History Tobacco Use Types [...] EDT I resubmitted the prescription under Dr Bolanos. Now waiting on approval. * Telephone Encounter - Pearl Sloan - 02/18/2023 9:03 AM EDT PT says that she was recently prescribed hydroCHLOROthiazide , but when she went to pick it up at her pharmacy they could not fill it due to a license issue with the Bridgett Youssef documented in this encounter Plan of Treatment Upcoming Encounters Date Type Department Care Team (Late st Contact Info) Description 01/31/2025 3:30 PM EDT Office Visit [facility] [address] [address] Pearl Schmitt ARNP [address] [address] documented as of this encounter Visit Diagnoses Not on filedocumented in this encounter Care Teams Receivables Specialist Relationship Specialty Start Date End Date Tushar Ruiz MD [address] [place] [address] PCP - General Internal Medicine 04/16/22 documented as of this encounter
--- OUTSIDE RECORDS SUMMARY | 2025-01-09 14:59 | XMS_ITS | Clinical Summary ---
Author Organization [facility] Address [address] [facility] [address] [place] [address] Phone Care Team Providers Care Wharf Tender Head Name Role Phone Tushar Ruiz MD Primary Care Provider [phone] Allergies Active Allergy Reactions Criticality Noted Date [...] Encounters Date Type Department Care Team Description 12/16/2024 Orders Only [facility] [address] [address] Pearl Schmitt ARNP Chronic kidney disease, stage 4 (severe) (HCC); Hypertension; Anemia in chronic kidney disease; Secondary hyperparathyroidism of renal origin (HCC) from Last 3 Months Immunizations Name Administration [...] Office Visit [facility] [address] [facility] [address] [place] [address] Pearl Schmitt ARNP [address] [facility] [address] [place] [address] Health Maintenance Due Date Last Done Comments Pneumococcal Vaccine: 65+ Ye ars (1 of 2 - PCV) 1941 Influenza Vaccine (#1) 2024 Hepatitis B Vaccine Aged Out No longe r eligible based on patient's age to complete this topic Insurance MEDICARE [facility] MEDICARE [facility] Care Teams Wharf Tender Head Relationship Specialty Start Date End Date Tushar Ruiz MD [address] [place] [address] PCP - General Internal Medicine 04/16/22
--- OUTSIDE RECORDS SUMMARY | 2025-01-09 14:59 | XMS_ITS | Encounter Summary ---
Author Organization [facility] Address [address] [address] Phone Care Team Providers Care Foundation Relations Director Name Role Phone Tushar Ruiz MD Primary Care Provider [phone] Encounter Details Date Type Department Care Team (Latest Contact Info) Description 12/16/2024 Orders Only [facility] [address] [address] Pearl Schmitt ARNP [address] [address] Chronic kidney disease, stage 4 (severe) (HCC); Hypertension; Anemia in chronic kidney disease; Secondary hyperparathyroidism of renal origin (HCC) Social History Tobacco Use Types Packs/Day Years Used Date Smoking Tobacco: Never Smokeless Tobacco: Never Alcohol Use Standard Drinks/Week Comments Never 0 (1 standard drink = 0.6 oz pur e alcohol) Comments Unknown Sex and Gender Information Value Date Recorded Sex Assigned at Not on file Legal Sex Female 1:45 PM EDT Gender Identity Not on file Sexual Orientation Not on file documented as of this encounter Plan of Treatment Upcoming Encounters Date Type Department Care Team (Late st Contact Info) Description 01/31/2025 3:30 PM EDT Office Visit [facility] [address] [address] Pearl Schmitt ARNP [address] [address] documented as of this encounter Visit Diagnoses Diagnosis Chronic kidney disease, stage 4 (severe) (HCC) Hypertension Anemia in chronic kidney disease Secondary hyperparathyroidism of renal origin (HCC) Secondary hyperparathyroidism of renal origin documented in this encounter Care Teams Foundation Relations Director Relationship Specialty Start Date End Date Tushar Ruiz MD [address] [place] [address] PCP - General Internal Medicine 04/16/22 documented as of this encounter
--- OUTSIDE RECORDS SUMMARY | 2025-01-09 14:59 | XMS_ITS ---
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 [...] Provider Name:Monika Rincon , 03/08/2025 03:00:00 PM, [address] [place] [address], [address], Procedure Notes * Category Sub-Category Detail Notes Keratoma Treatment Parring or Cutting o f Benign Hyperkeratotic Lesion(s) 71395-ZY Self Pay Non-Covered Callus care- Nail Reduction Nail Reduction 03070-VO Trimmin g of non-dystrophic nails Progress Notes * Blanca WOODDOB:[birth year] (89 yo F)Acc No.[id number]:11/30/2024 Progress Note Patient:?Blanca WOOD Provider:?Monika MISSY Rincon :1935???Age:89 Y???Sex:Female D ate:11/30/2024 Address:[address] Pcp:Tushar Ruiz MD Subjective: * Chief Complaints: [...] * Vitals:?Ht: 5 ft, Wt: 185, B PR: 36.13, Shoe size: 7.5, BP: 130/80 mm Hg, BS: not taken, Ht-cm: 152.4 cm, Wt-k.92 kg. * ???Past Orders: ???Lab:HEMOGLOBIN A1C (GLYCO HEMOGLOBIN) (Order Date - 10/18/2024) (Collection Date & Time - 10/18/2024 10:50 AM) ? Value Reference Range ?HEMOGLOBIN A1C % (HH) 6.3 * Examination: ???Ophthalmology Referral: ?DIABETES EYE EXAM?Procedure Performed:?Yes ?Date of Exam Performed?04/17/2024 ?Findings of Diabetic Eye Exam:?no retinopathy?Nails: ?NAILS are:?elongated,overgrown, and non-dystrophic, ?T1, T2, T3, T4,T6, T7, T8, T9.?Dermatologic: ?HYPERKERATOSIS:?1st MTHbilateral,TA,T5, 5th MTH, right.? 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 Plan: * Treatment: * Procedures:?Keratoma Treatment:?Parring or Cutting of Benign Hyperkeratotic Lesion(s)?76042-QH Self Pay Non-Covered Callus care-.?Nail Reduction:?Nail Reduction?87896-BD Trimming of non-dystrophic nails.? * Procedure Codes:?08216 TRIM SKIN LESIONS, OVER 4 $60, Modifiers: GY 00719 TRIM NAIL(S), Modifiers: GY * Follow Up:?3 Months * Images: * Sign off status: Completed true * Provider:?Monika Rincon DPM Date:?2024 Generated for Rafi clement/Amol/eTransmitting on:?01/09/2025 02:59 PM [...]
--- OUTSIDE RECORDS SUMMARY | 2025-01-09 14:59 | XMS_ITS ---
Author Organization [facility] Address [address] [place] [address] Care Team Providers Care Check Processing Clerk Name Role Phone Joseph ERWIN, Tushar Primary Care Provider UnavailMonika Gallegos [phone] Encounters Encounter Location Date Provider Diagnosis [facility] [address] [place] [address] 07/13/2024 Monika Rincon Plan Of Treatment Next Appt Details Provider Name:Monika Rincon , 03/08/2025 03:00:00 PM, [address] [place], [address], Progress Notes * Blanca WOODDOB:[birth year] (89 yo F)Acc No.[id number]:07/13/2024 Progress Note Patient:?ISRAEL Blanca English Provider:?Monika Rincon DPM :1935???Age:88 Y???Sex:Female D ate:07/13/2024 Address:[address] [place] [address] Pcp:Tushar Ruiz MD Subjective: * Chief Complaints: [...] DPM Date:?2023 Generated for Rafi clement/Amol/Luis Manuel on:?01/09/2025 02:59 PM EDT
== END 2025-01-09 12:15 | disposition home or self-care (01) ==
LOC: HO.MAMMO 12:14
PROVIDERS: Absent Provider Internal Medicine; PCP Internal Medicine; Referring Provider Surgery; Visit Provider Internal Medicine
DX: Z85.3 Personal history of malignant neoplasm of breast (principal)
CPT/HCPCS: 77062; 77066

== ENCOUNTER → 2025-01-09 12:30 | Outpatient (BNV) | payer MEDICARE, SELFPAY | PROVIDERS: Absent Provider Internal Medicine; PCP Internal Medicine; Referring Provider Surgery; Visit Provider Internal Medicine | DX: Z85.3 Personal history of malignant neoplasm of breast (principal) | CPT/HCPCS: 77066; G0279 ==

== ENCOUNTER 2025-01-10 09:41 | Outpatient (REF) | payer MEDICARE, SELFPAY ==
--- NOTE | ~2025-01-10 | US_ITS ---
EXAMINATION: US RETROPERITONEUM HISTORY: NEOPLASM OF UNCERTAIN BEHAVIOR RT KIDNEY TECHNIQUE: Real-time grayscale ultrasound imaging of the kidneys was performed and images were reviewed. COMPARISON: Comparison is made with the prior examination dated 07/06/2024. FINDINGS: Right kidney: The right kidney measures 10.0 x 4.8 x 4.6 cm. Renal parenchymal echotexture and thickness are normal. Again seen is a mass in the interpolar region measuring 3.2 x 2.6 x 2.6 cm (previously 2.7 x 2.3 x 2.8 cm). There is a 1.4 x 1.0 x 0.9 cm cyst in the interpolar region. There is a 6 x 3 x 4 mm nonobstructing calculus at the upper pole. At the lower pole, there is a 6 x 9 x 5 mm echogenic lesion which may represent a small angiomyolipoma. There is no hydronephrosis. Left Kidney: The left kidney measures 10.3 x 4.7 x 4.3 cm. Renal parenchymal echotexture and thickness are normal. There is a 9 x 6 x 10 mm cyst at the upper pole. An additional 1.4 x 1.4 x 1.2 cm cyst is noted at the lower pole. There is no hydronephrosis or renal calculi. The urinary bladder is unremarkable. Bilateral ureteral jets are identified. 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 Additional findings are stable, as described above. Electronically signed by: Gaurang Rosario MD 01/10/2025 10:50 AM EDT
--- OUTSIDE RECORDS SUMMARY | 2025-01-10 10:52 | XMS_ITS | Clinical Summary ---
Author Organization [facility] Address [address] [facility] [address] [place] [address] Phone Care Team Providers Care Matrix Bath Attendant Name Role Phone Tushar Ruiz MD Primary Care Provider [phone] Allergies Active Allergy Reactions Criticality Noted Date [...] Orders Only [facility] [address] [address] Pearl Schmitt ARNP Chronic kidney [...] Visit [facility] PMarc [address] [facility] [address] [place] [address] Pearl Schmitt ARNP [address] [facility] [address] [place] [address] Health Maintenance Due Date Last Done Comments Pneumococcal Vaccine: 65+ Ye ars (1 of 2 - PCV) 1942 Influenza Vaccine (#1) 2024 Hepatitis B Vaccine Aged Out No longe r eligible based on patient's age to complete this topic Insurance MEDICARE [facility] MEDICARE [facility] Care Teams Matrix Bath Attendant Relationship Specialty Start Date End Date Tushar Ruiz MD [address] [place] [address] PCP - General Internal Medicine 04/16/22
--- OUTSIDE RECORDS SUMMARY | 2025-01-10 10:52 | XMS_ITS ---
Author Organization [facility] Address [address] [place] [address] Care Team Providers Care Clipper Machine Name Role Phone Joseph ERWIN, Tushar Primary Care Provider UnavailMonika Gallegos [phone] Encounters Encounter Location Date Provider Diagnosis [facility] [address] [place] [address] 07/13/2024 Monika Rincon Plan Of Treatment Next Appt Details Provider Name:Monika Rincon , 03/08/2025 03:00:00 PM, [address] [place], [address], Progress Notes * Blanca WOODDOB:[birth year] (89 yo F)Acc No.[id number]:07/13/2024 Progress Note Patient:?ISRAEL Blanca English Provider:?Monika Rincon DPM :1935???Age:88 Y???Sex:Female D ate:07/13/2024 Address:[address] [place] [address] Pcp:Tushar Ruiz MD Subjective: * Chief Complaints: [...] DPM Date:?2023 Generated for Rafi clement/Amol/Luis Manuel on:?01/10/2025 10:52 AM EDT
--- OUTSIDE RECORDS SUMMARY | 2025-01-10 10:52 | XMS_ITS | Encounter Summary ---
Author Organization [facility] Address [address] [place] [address] Phone Care Team Providers Care Early Childhood Education Worker Name Role Phone Tushar Ruiz MD Primary Care Provider [phone] Encounter Details Date Type Department Care Team (Late st Contact Info) Description 02/18/2023 Telephone [facility] [address] [place] [phone] Pearl Sloan Social History Tobacco Use Types [...] Office Visit [facility] [address] [address] Pearl Schmitt ARNP [address] [address] documented as of this encounter Visit Diagnoses Not on filedocumented in this encounter Care Teams Early Childhood Education Worker Relationship Specialty Start Date End Date Tushar Ruiz MD [address] [place] [address] PCP - General Internal Medicine 04/16/22 documented as of this encounter
--- OUTSIDE RECORDS SUMMARY | 2025-01-10 10:52 | XMS_ITS ---
Author Organization [facility] Address [address] [place] [address] Care Team Providers Care Environmental Resource Specialist Name Role Phone Joseph ERWIN, Tushar Primary Care Provider UnavailMonika Gallegos Unavailable [phone] Allergies Allergen (clinical drug ingredient) Drug/Non Drug [...] Ordered Date Performed Result Body Sit e 08537-LEAX SKIN LESIONS, OVER 4 08/25/2024 N/A 32184-VKJR NAIL(S) 08/25/2024 N/A Encounters Encounter Location Date Provider Diagnosis [facility] [address] 08/25/2024 Monkia Rincon 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 et plantaris L85.1 and Other nail disorders L60.8 Assessments Encounter Date Diagnosis (ICD Code) Assessment Notes Treatment Notes Treatment Clinical Notes Section Notes 08/25/2024 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 et plantaris (ICD-10 - L85.1) 08/25/2024 Other nail disorders (ICD-10 - L60.8) Plan Of Treatment Pending Test Test Name Order Date 24924-FKAS SKIN LESIONS, OVER 4 08/25/20 24 99403-ELZE NAIL(S) 08/25/2024 Next Appt Details Follow Up: 3 Months, Reason: Provider Name:Monika Rincon , 03/08/2025 03:00:00 PM, [address] [place] [address], [address], Procedure Notes * Category Sub-Category Detail Notes Keratoma Treatment Parring or Cutting o f Benign Hyperkeratotic Lesion(s) 87112-TJ Self Pay Non-Covered Callus care- Nail Reduction Nail Reduction 45883-JS Trimmin g of non-dystrophic nails Progress Notes * Blanca WOODDOB:[birth year] (89 yo F)Acc No.[id number]:08/25/2024 Progress Note Patient:?Cely Blanca English Provider:?Monika Rincon DPM :1935???Age:89 Y???Sex:Female D ate:08/25/2024 Address:[address] Pcp:Tushar Ruiz MD Subjective: * Chief Complaints: [...] * Vitals:?Ht: 5 ft, Wt: 187, B OR: 36.52, Shoe size: 7.5, Ht-cm: 152.4 cm, [...] L60.8? Plan: * Treatment: 2.?Other nail disorders?Procedure: 86608-YWOH NAIL(S) * Procedures:?Keratoma Treatment:?Parring or Cutting of Benign Hyperkeratotic Lesion(s)?99276-VV Self Pay Non-Covered Callus care-.?Nail Reduction:?Nail Reduction?61455-IJ Trimming of non-dystrophic nails.? * Procedure Codes:?52723 TRIM SKIN LESIONS, OVER 4 $60, Modifiers: GY 00415 TRIM NAIL(S), Modifiers: GY * Follow Up:?3 Months * Images: * Sign off status: Completed true * Provider:?Monika Rincon DPM Date:?2023 Generated for Rafi clement/Amol/eTransmitting on:?01/10/2025 10:52 AM EDT History and Physical Notes * Examination [...]
--- OUTSIDE RECORDS SUMMARY | 2025-01-10 10:52 | XMS_ITS | Encounter Summary ---
Author Organization [facility] Address [address] [address] Phone Care Team Providers Care Reservoir Caretaker Name Role Phone Tushar Ruiz MD Primary Care Provider [phone] Encounter Details Date Type Department Care Team (Latest Contact Info) Description 12/16/2024 Orders Only [facility] [address] [address] Pearl Schmitt ARNP [address] [address] Chronic kidney disease, stage 4 [...] Office Visit [facility] [address] [address] Pearl Schmitt ARNP [address] [address] documented as of this encounter Visit Diagnoses Diagnosis Chronic kidney disease, stage 4 (severe) (HCC) Hypertension Anemia in chronic kidney disease Secondary hyperparathyroidism of renal origin (HCC) Secondary hyperparathyroidism of renal origin documented in this encounter Care Teams Reservoir Caretaker Relationship Specialty Start Date End Date Tushar Ruiz MD [address] [place] [address] PCP - General Internal Medicine 04/16/22 documented as of this encounter
--- OUTSIDE RECORDS SUMMARY | 2025-01-10 10:52 | XMS_ITS | Patient Health Record ---
Author Organization [facility] Address [address] [place] [address] Care Team Providers Care Pleating Supervisor Name Role Phone Tushar Ruiz MD Primary Care Provider Monika Umana Unavailable [phone] Allergies Allergen (clinical drug ingredient) Drug/Non Drug [...] disease due to type 2 diabetes mellitus (370910120612 ) Type 2 diabetes mellitus with diabetic chronic kidney disease (E11.22) Active confirmed Problem Acquired hammer toe of right foot (393117836814 9105) Other hammer toe(s) (acquired), right foot (M20.41) Active confirmed Problem Acquired hammer toe of left foot (853339188812 9103) Other hammer toe(s) (acquired), left foot (M20.42) Active confirmed Problem Primary gout (09942881) Acute idiopathic gout of left foot (M10.072) Active confirmed Problem Acquired deformity of right foot (412959408872 63804) PlantarFlexion of metatarsal of right foot (M21.6X1) Active confirmed Vital Signs Blood pressure diastolic 80 mm Hg 11/30/2024 Height 5 ft in 11/30/2024 Blood pressure systolic 130 mm Hg 11/30/2024 Weight 185 lbs 11/30/2024 BMI 36.13 kg/m2 11/30/2024 Procedures Procedure Date Ordered Date Performed Result Body Sit e 32078-FULN SKIN LESIONS, OVER 4 04/03/2024 N/A 15833-JJYF NAIL(S) 04/03/2024 N/A 41779-LHTL SKIN LESIONS, OVER 4 08/25/2024 N/A 62302-TXDA NAIL(S) 08/25/2024 N/A Encounters Encounter Location Date Provider Diagnosis [facility] [place] [address] [place] [address] 04/03/2024 Monika Rincon 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 et plantaris L85.1 and Other nail disorders L60.[address] [facility] [address] [address] 08/25/2024 Monika Black 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 et plantaris L85.1 and Other nail disorders L60.8 [facility] [place] [address] [place] [address] 11/30/2024 Monika Black 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 [...] Order Date *CBC With Differential/Platelet 12/15/19 24 75162-NGLM SKIN LESIONS, OVER 4 12/23/19 24 74387-EWGO SKIN LESIONS, OVER 4 09/06/20 23 60267-EQVJ SKIN LESIONS, OVER 4 02/09/20 23 76378-NMYD SKIN LESIONS, OVER 4 05/24/20 23 90085-SSLW SKIN LESIONS, OVER 4 04/03/20 24 08941-VKSX SKIN LESIONS, OVER 4 08/25/20 24 27212-HNMO SKIN LESIONS, OVER 4 12/20/19 21 30868-NCKI SKIN LESIONS, OVER 4 03/24/20 21 46147-PMDW SKIN LESIONS, OVER 4 06/26/20 21 82032-MGUK SKIN LESIONS, OVER 4 09/25/20 21 80168-VWOS SKIN LESIONS, OVER 4 01/06/20 22 77450-QASO SKIN LESIONS, OVER 4 04/09/20 22 91859-GBKW SKIN LESIONS, OVER 4 07/16/20 22 56892-VWFM SKIN LESIONS, OVER 4 11/05/19 23 32680-NCNZ SKIN LESIONS, OVER 4 10/08/20 11 44058-BLMG SKIN LESIONS, OVER 4 01/04/20 12 54196-FGUN SKIN LESIONS, OVER 4 03/28/20 12 06309-LMHP SKIN LESIONS, OVER 4 06/27/20 12 09911-ACSC SKIN LESIONS, OVER 4 09/26/20 12 41156-SIBC SKIN LESIONS, OVER 4 07/03/20 13 53845-VZDB SKIN LESIONS, OVER 4 10/02/20 13 19276-UTPS SKIN LESIONS, OVER 4 01/09/20 14 86215-ACKF SKIN LESIONS, OVER 4 04/12/20 14 75203-KYOB SKIN LESIONS, OVER 4 07/16/20 14 27799-EUTV SKIN LESIONS, OVER 4 10/01/20 14 96393-COHT SKIN LESIONS, OVER 4 01/01/20 15 84039-VKJG SKIN LESIONS, OVER 4 04/01/20 15 33442-LPVT SKIN LESIONS, OVER 4 07/01/20 15 15968-FGGJ SKIN LESIONS, OVER 4 09/30/20 15 60029-EPPE SKIN LESIONS, OVER 4 12/30/19 16 41477-SAOA SKIN LESIONS, OVER 4 04/06/20 16 34536-BTIQ SKIN LESIONS, OVER 4 07/09/20 16 56991-BYEZ SKIN LESIONS, OVER 4 10/05/20 16 06162-RHZY SKIN LESIONS, OVER 4 01/05/20 17 93809-HKPJ SKIN LESIONS, OVER 4 04/05/20 17 84441-QIVD SKIN LESIONS, OVER 4 07/05/20 17 87387-QZYW SKIN LESIONS, OVER 4 10/04/20 17 04335-CLPV SKIN LESIONS, OVER 4 01/11/20 18 17653-LXLN SKIN LESIONS, OVER 4 01/24/20 19 77439-JEND SKIN LESIONS, OVER 4 06/05/20 19 32603-XZMY SKIN LESIONS, OVER 4 09/07/20 19 46143-ZFAG SKIN LESIONS, OVER 4 12/07/19 20 45662-FXLB SKIN LESIONS, OVER 4 03/14/20 20 99153-LZCQ SKIN LESIONS, OVER 4 06/17/20 20 76702-QSEU SKIN LESIONS, OVER 4 09/16/20 20 89304-SAYK SKIN LESIONS, 2 TO 4 04/03/20 13 58747-PRER SKIN LESIONS, 2 TO 4 12/27/19 13 00051-NIYX NAIL(S) 04/03/2013 01958-BRAN NAIL(S) 09/26/2012 12169-GDZQ NAIL(S) 12/26/2012 64748-ZOHR NAIL(S) 07/03/2013 69523-FCSV NAIL(S) 10/02/2013 48406-QNVT NAIL(S) 06/27/2012 30234-YPRJ NAIL(S) 03/28/2012 54633-MXMX NAIL(S) 01/04/2012 17847-SSNY NAIL(S) 10/08/2011 56977-KPOT NAIL(S) 09/30/2015 27569-ZVAN NAIL(S) 07/01/2015 66404-APSF NAIL(S) 04/01/2015 05594-YHIY NAIL(S) 12/31/2014 82760-MJKN NAIL(S) 10/01/2014 26136-NXNO NAIL(S) 07/16/2014 84825-UZEF NAIL(S) 04/12/2014 06056-HTVU NAIL(S) 01/08/2014 39607-XNHQ NAIL(S) 09/16/2020 82822-CKWX NAIL(S) 06/17/2020 27554-RREV NAIL(S) 03/14/2020 28009-OCAU NAIL(S) 12/07/2019 44421-SBNO NAIL(S) 09/07/2019 63675-SKOX NAIL(S) 06/05/2019 10687-UHNG NAIL(S) 01/23/2019 63586-LVRF NAIL(S) 01/10/2018 10011-HGGI NAIL(S) 10/04/2017 17696-TKTF NAIL(S) 07/05/2017 57549-AODK NAIL(S) 04/05/2017 58697-YBSD NAIL(S) 01/04/2017 21143-RGZX NAIL(S) 10/05/2016 46221-QQOE NAIL(S) 07/09/2016 33947-RSSX NAIL(S) 04/06/2016 30261-OYEI NAIL(S) 12/30/2015 85890-LFDG NAIL(S) 11/05/2022 82466-ZDQW NAIL(S) 07/16/2022 58831-GUCF NAIL(S) 04/09/2022 73559-QOZZ NAIL(S) 01/05/2022 83447-FMPM NAIL(S) 09/25/2021 02127-RJEX NAIL(S) 06/26/2021 33939-FLIC NAIL(S) 03/24/2021 12111-RGPW NAIL(S) 12/19/2020 02151-QCEH NAIL(S) 08/25/2024 33616-NXQU NAIL(S) 04/03/2024 90091-RAYR NAIL(S) 05/24/2023 61534-REBK NAIL(S) 02/08/2023 89886-JFAV NAIL(S) 09/06/2023 03561-UJVD NAIL(S) 12/23/2023 Next Appt Details Provider Name:Monika Rincon , 03/08/2025 03:00:00 PM, [address] [place], [address], Insurance Providers Payer Name Payer Address Payer Phone Subscriber Number Group Number Insured Name Patient Relationship to Insured Coverage Start Date Coverage End Date Medicare National Govt [facility] [address] [place] [address] [id number] Cely Blanca Self - patient is the insured 1 [employer] [address] [place] [address] [id number] [place], [place] Self - patient is the insured [...]
--- OUTSIDE RECORDS SUMMARY | 2025-01-10 10:52 | XMS_ITS ---
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 [...] Provider Name:Monika Rincon , 03/08/2025 03:00:00 PM, [address] [place] [address], [address], Procedure Notes * Category Sub-Category Detail Notes Keratoma Treatment Parring or Cutting o f Benign Hyperkeratotic Lesion(s) 67213-RZ Self Pay Non-Covered Callus care- Nail Reduction Nail Reduction 47845-AW Trimmin g of non-dystrophic nails Progress Notes * Blanca WOODDOB:[birth year] (89 yo F)Acc No.[id number]:11/30/2024 Progress Note Patient:?Blanca WOOD Provider:?Monika MISSY Rincon :1935???Age:89 Y???Sex:Female D ate:11/30/2024 Address:[address] Pcp:Tushar Ruiz MD Subjective: * Chief Complaints: [...] * Vitals:?Ht: 5 ft, Wt: 185, B IA: 36.13, Shoe size: 7.5, BP: 130/80 mm [...] Procedures:?Keratoma Treatment:?Parring or Cutting of Benign Hyperkeratotic Lesion(s)?59395-BL Self Pay Non-Covered Callus care-.?Nail Reduction:?Nail Reduction?18874-RO Trimming of non-dystrophic nails.? * Procedure Codes:?16032 TRIM SKIN LESIONS, OVER 4 $60, Modifiers: GY [address]19 TRIM NAIL(S), Modifiers: GY * Follow Up:?3 Months * Images: * Sign off status: Completed true * Provider:?Monika Rincon DPM Date:?2024 Generated for Rafi clement/Amol/eTransmitting on:?01/10/2025 10:52 AM [...]
== END 2025-01-10 09:42 | disposition home or self-care (01) ==
LOC: HO.US 09:41
PROVIDERS: PCP Internal Medicine; Visit Provider Urology
DX: D41.01 Neoplasm of uncertain behavior of right kidney (principal)
CPT/HCPCS: 76770

== ENCOUNTER → 2025-01-10 09:43 | Outpatient (BNV) | payer MEDICARE, SELFPAY | PROVIDERS: PCP Internal Medicine; Visit Provider Radiology Diagnostic Radiology | DX: D41.01 Neoplasm of uncertain behavior of right kidney (principal) | CPT/HCPCS: 76770 ==

== ENCOUNTER 2025-01-22 10:19 | Outpatient (REF) | payer MEDICARE, SELFPAY ==
[2025-01-22 10:41] LABS: MANUAL DIFF FLAG NO
[2025-01-22 10:59] LABS: Basophils Percent Auto 0.2 % (0-2); Eosinophils Absolute Auto 0.1 X10*3/uL (0.0-0.4); Eosinophils Percent Auto 1.1 % (0-4); Hematocrit 38.3 % (37.0-47.0); Hemoglobin 12.2 g/dl (12.0-16.0); Imm Gran Abs Auto 0.07 X10*3/uL (0.00-0.03); Imm Gran Pct Auto 0.8 % (0.0-0.4); Lymphocytes Percent Auto 24.2 % (20-40); Mean Corpuscular HGB Conc 31.9 g/dl (31.0-35.0); Mean Corpuscular Hemoglobin 29.8 pg (27.0-33.0); Mean Corpuscular Volume 93.6 fL (80.0-98.0); Mean Platelet Volume 10.6 fL (9.4-12.3); Monocytes Absolute Auto 0.9 X10*3/uL (0.1-1.2); Monocytes Percent Auto 11.2 % (2-11); Neutrophils Absolute Auto 5.2 x10*3/uL (2.0-8.3); Neutrophils Percent Auto 62.5 % (45-73); Platelet Count 190 X10*3/uL (160-400); Red Blood Count 4.09 X10*6/uL (4.20-5.50); Red Cell Distribution Width 14.7 % (11.0-16.0); White Blood Count 8.3 X10*3/uL (4.8-10.8)
[2025-01-22 11:14] LABS: Anion Gap 14 (12-20); Blood Urea Nitrogen 52 mg/dL (9-16); Calcium 10.2 mg/dL (8.4-10.2); Carbon Dioxide 28 mmol/L (22-29); Chloride 106 mmol/L (96-108); Estimated Glomerular Filt Rate 24; Magnesium 2.1 mg/dL (1.6-2.6); Potassium 3.6 mmol/L (3.3-5.1); Sodium 144 mmol/L (135-145)
[2025-01-22 11:15] LABS: Parathyroid Hormone Intact 177.2 pg/mL (8.7-77.1)
[2025-01-22 11:24] LABS: Creatinine Urine 36.06 mg/dL; Microalbum/Creatinine Ratio Ur 41.5 ug/mg cr (<30); Total Protein Urine Random < 7 mg/dL (<12)
[2025-01-22 11:37] LABS: Estimated Average Glucose 140 mg/dL; Hemoglobin A1C 153.2255 umol/L; Hemoglobin A1c % 6.5 % (<6.0); Total Hemoglobin (HGBA1C) 3214.6475 umol/L
--- OUTSIDE RECORDS SUMMARY | 2025-01-22 12:07 | XMS_ITS | Encounter Summary ---
Author Organization [facility] Address [address] [place] [address] Phone Care Team Providers Care Communication Clerk Name Role Phone Tushar Ruiz MD Primary Care Provider [phone] Encounter Details Date Type Department Care Team (Late st Contact Info) Description 02/18/2023 Telephone [facility] [address] [place] [address] Pearl Sloan Social History Tobacco Use Types [...] Office Visit [facility] [address] [address] Pearl Schmitt ARNP [address] [address] documented as of this encounter Visit Diagnoses Not on filedocumented in this encounter Care Teams Communication Clerk Relationship Specialty Start Date End Date Tushar Ruiz MD [address] [place] [address] PCP - General Internal Medicine 04/16/22 documented as of this encounter
--- OUTSIDE RECORDS SUMMARY | 2025-01-22 12:07 | XMS_ITS ---
Author Organization [facility] Address [address] [place] [address] Care Team Providers Care Process Development Chemist Name Role Phone Joseph ERWIN, Tushar Primary Care Provider UnavailMonika Gallegos [phone] Encounters Encounter Location Date Provider Diagnosis [facility] [address] [place] [address] 07/13/2024 Monika Rincon Plan Of Treatment Next Appt Details Provider Name:Monika Rincon , 03/08/2025 03:00:00 PM, [address] [place], [address], Progress Notes * Blanca WOODDOB:[birth year] (89 yo F)Acc No.[id number]:07/13/2024 Progress Note Patient:?ISRAEL Blanca English Provider:?Monika Rincon DPM :1935???Age:88 Y???Sex:Female D ate:07/13/2024 Address:[address] [place] [address] Pcp:Tushar Ruiz MD Subjective: * Chief Complaints: [...] DPM Date:?2023 Generated for Rafi clement/Amol/Luis Manuel on:?01/22/2025 12:07 PM EDT
--- OUTSIDE RECORDS SUMMARY | 2025-01-22 12:07 | XMS_ITS | Patient Health Record ---
Author Organization [facility] Address [address] [place] [address] Care Team Providers Care Safe And Vault Service Mechanic Name Role Phone Tushar Ruiz MD Primary Care Provider Monika Umana Unavailable [phone] Allergies Allergen (clinical drug ingredient) Drug/Non Drug [...] disease due to type 2 diabetes mellitus (776352650614 ) Type 2 diabetes mellitus with diabetic chronic kidney disease (E11.22) Active confirmed Problem Acquired hammer toe of right foot (252423063595 9105) Other hammer toe(s) (acquired), right foot (M20.41) Active confirmed Problem Acquired hammer toe of left foot (975811520724 9103) Other hammer toe(s) (acquired), left foot (M20.42) Active confirmed Problem Primary gout (32028420) Acute idiopathic gout of left foot (M10.072) Active confirmed Problem Acquired deformity of right foot (820992306422 51988) PlantarFlexion of metatarsal of right foot (M21.6X1) Active confirmed Vital Signs Blood pressure diastolic 80 mm Hg 11/30/2024 Height 5 ft in 11/30/2024 Blood pressure systolic 130 mm Hg 11/30/2024 Weight 185 lbs 11/30/2024 BMI 36.13 kg/m2 11/30/2024 Procedures Procedure Date Ordered Date Performed Result Body Sit e 76744-GTLV SKIN LESIONS, OVER 4 04/03/2024 N/A 79137-AMLL NAIL(S) 04/03/2024 N/A 00515-CLNJ SKIN LESIONS, OVER 4 08/25/2024 N/A 75651-TZMU NAIL(S) 08/25/2024 N/A Encounters Encounter Location Date Provider Diagnosis [facility] [place] [address] [place] [address] 04/03/2024 Monika Rincon 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 et plantaris L85.1 and Other nail disorders L60.8 [facility] [address] [address] 08/25/2024 Monika Black 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 et plantaris L85.1 and Other nail disorders L60.8 [facility] [place] [address] [place] [address] 11/30/2024 Monika Black 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 [...] Order Date *CBC With Differential/Platelet 12/15/19 24 34531-PBNO SKIN LESIONS, OVER 4 12/23/19 24 25147-ZYBV SKIN LESIONS, OVER 4 09/06/20 23 60658-LBKN SKIN LESIONS, OVER 4 02/09/20 23 86694-YAJS SKIN LESIONS, OVER 4 05/24/20 23 89562-FRUQ SKIN LESIONS, OVER 4 04/03/20 24 57051-SWUO SKIN LESIONS, OVER 4 08/25/20 24 92293-LCQG SKIN LESIONS, OVER 4 12/20/19 21 10873-LHBH SKIN LESIONS, OVER 4 03/24/20 21 46194-MQQF SKIN LESIONS, OVER 4 06/26/20 21 89638-MJCW SKIN LESIONS, OVER 4 09/25/20 21 94327-GEPW SKIN LESIONS, OVER 4 01/06/20 22 20490-GQHE SKIN LESIONS, OVER 4 04/09/20 22 49408-WKOA SKIN LESIONS, OVER 4 07/16/20 22 70878-UTKG SKIN LESIONS, OVER 4 11/05/19 23 33113-MDXV SKIN LESIONS, OVER 4 10/08/20 11 79506-OUQQ SKIN LESIONS, OVER 4 01/04/20 12 60740-YKWN SKIN LESIONS, OVER 4 03/28/20 12 26586-UNUU SKIN LESIONS, OVER 4 06/27/20 12 33063-OXFM SKIN LESIONS, OVER 4 09/26/20 12 22200-MFRE SKIN LESIONS, OVER 4 07/03/20 13 91524-WMZH SKIN LESIONS, OVER 4 10/02/20 13 39655-WPTP SKIN LESIONS, OVER 4 01/09/20 14 67245-CALS SKIN LESIONS, OVER 4 04/12/20 14 55092-WIET SKIN LESIONS, OVER 4 07/16/20 14 77733-JHOR SKIN LESIONS, OVER 4 10/01/20 14 86313-WDVL SKIN LESIONS, OVER 4 01/01/20 15 67288-FYWM SKIN LESIONS, OVER 4 04/01/20 15 38632-IIYG SKIN LESIONS, OVER 4 07/01/20 15 79255-SLDJ SKIN LESIONS, OVER 4 09/30/20 15 63868-MPLV SKIN LESIONS, OVER 4 12/30/19 16 99781-YBOD SKIN LESIONS, OVER 4 04/06/20 16 07094-MKKD SKIN LESIONS, OVER 4 07/09/20 16 18513-HURY SKIN LESIONS, OVER 4 10/05/20 16 76200-DZUO SKIN LESIONS, OVER 4 01/05/20 17 28875-SLAT SKIN LESIONS, OVER 4 04/05/20 17 52066-PYDQ SKIN LESIONS, OVER 4 07/05/20 17 18373-ASHC SKIN LESIONS, OVER 4 10/04/20 17 51525-NFVE SKIN LESIONS, OVER 4 01/11/20 18 24063-SUEG SKIN LESIONS, OVER 4 01/24/20 19 26477-ZBLE SKIN LESIONS, OVER 4 06/05/20 19 79850-BUMK SKIN LESIONS, OVER 4 09/07/20 19 80508-OOYV SKIN LESIONS, OVER 4 12/07/19 20 54398-EMCX SKIN LESIONS, OVER 4 03/14/20 20 59216-CSVD SKIN LESIONS, OVER 4 06/17/20 20 64903-UOUH SKIN LESIONS, OVER 4 09/16/20 20 21642-VWLS SKIN LESIONS, 2 TO 4 04/03/20 13 80198-WTPZ SKIN LESIONS, 2 TO 4 12/27/19 13 53049-VFTL NAIL(S) 04/03/2013 68248-BMVH NAIL(S) 09/26/2012 80878-DBGT NAIL(S) 12/26/2012 39754-BQGX NAIL(S) 07/03/2013 90380-HWIA NAIL(S) 10/02/2013 77447-MBWT NAIL(S) 06/27/2012 00535-DEJQ NAIL(S) 03/28/2012 86043-NUPQ NAIL(S) 01/04/2012 60578-ZEVC NAIL(S) 10/08/2011 49789-BVUV NAIL(S) 09/30/2015 43467-PFNO NAIL(S) 07/01/2015 13964-RLFM NAIL(S) 04/01/2015 43895-XSRD NAIL(S) 12/31/2014 24364-MKMW NAIL(S) 10/01/2014 17292-PXHE NAIL(S) 07/16/2014 20185-RHTT NAIL(S) 04/12/2014 44296-ERCK NAIL(S) 01/08/2014 94117-ZVEL NAIL(S) 09/16/2020 09982-MEVN NAIL(S) 06/17/2020 97659-QFMQ NAIL(S) 03/14/2020 05390-TLOX NAIL(S) 12/07/2019 66298-VDTZ NAIL(S) 09/07/2019 78469-FNBV NAIL(S) 06/05/2019 03998-ZDSG NAIL(S) 01/23/2019 35573-EQQL NAIL(S) 01/10/2018 18957-AKZO NAIL(S) 10/04/2017 64806-SMAZ NAIL(S) 07/05/2017 09718-IGNW NAIL(S) 04/05/2017 61715-TCKG NAIL(S) 01/04/2017 81891-TMAO NAIL(S) 10/05/2016 74331-DTXP NAIL(S) 07/09/2016 96539-AORM NAIL(S) 04/06/2016 50757-ALEF NAIL(S) 12/30/2015 48473-ZAHP NAIL(S) 11/05/2022 60152-CHLO NAIL(S) 07/16/2022 57729-PMKH NAIL(S) 04/09/2022 63775-LGNM NAIL(S) 01/05/2022 17797-DHSU NAIL(S) 09/25/2021 85090-PTIP NAIL(S) 06/26/2021 38162-TXQY NAIL(S) 03/24/2021 45943-GRUU NAIL(S) 12/19/2020 02522-IRQB NAIL(S) 08/25/2024 11352-FQQD NAIL(S) 04/03/2024 60665-EPVX NAIL(S) 05/24/2023 70006-FIWY NAIL(S) 02/08/2023 24805-DTTJ NAIL(S) 09/06/2023 27631-QNPW NAIL(S) 12/23/2023 Next Appt Details Provider Name:Monika Rincon , 03/08/2025 03:00:00 PM, [address] [place], [address], Insurance Providers Payer Name Payer Address Payer Phone Subscriber Number Group Number Insured Name Patient Relationship to Insured Coverage Start Date Coverage End Date Medicare National Govt [facility] [address] [place] [address] [id number] Cely Blanca Self - patient is the insured 1 [employer] [address] [place] [address] [id number] [place], [place] Self - patient is the insured [...]
--- OUTSIDE RECORDS SUMMARY | 2025-01-22 12:07 | XMS_ITS | Clinical Summary ---
Author Organization [facility] Address [address] [facility] [address] [place] [address] Phone Care Team Providers Care Cash Surrender Calculator Name Role Phone Tushar Ruiz MD Primary Care Provider [phone] Allergies Active Allergy Reactions Criticality Noted Date [...] Orders Only [facility] [address] [address] Pearl Schmitt ARNP Chronic kidney [...] Visit [facility] [address] [facility] [address] [place] [address] Pearl Schmitt ARNP [address] [facility] [address] [place] [address] Health Maintenance Due Date Last Done Comments Pneumococcal Vaccine: 65+ Ye ars (1 of 2 - PCV) 1942 Influenza Vaccine (Season Ended) 2025 Hepatitis B Vaccine Aged Out No longe r eligible based on patient's age to complete this topic Insurance MEDICARE [facility] MEDICARE [facility] Care Teams Cash Surrender Calculator Relationship Specialty Start Date End Date Tushar Ruiz MD [address] [place] [address] PCP - General Internal Medicine 04/16/22
--- OUTSIDE RECORDS SUMMARY | 2025-01-22 12:07 | XMS_ITS ---
[facility] Organization [facility] Address [address] [place] [address] Care Team Providers Care Extracting Machine Operator Name Role Phone Joseph ERWIN, Tushar Primary Care Provider UnavailMonika Gallegos Unavailable [phone] Allergies Allergen (clinical drug ingredient) Drug/Non Drug [...] Ordered Date Performed Result Body Sit e 41156-AWTT SKIN LESIONS, OVER 4 08/25/2024 N/A 15218-PCWI NAIL(S) 08/25/2024 N/A Encounters Encounter Location Date Provider Diagnosis [facility] [address] 08/25/2024 Monika Rincon 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 et plantaris L85.1 and Other nail disorders L60.8 Assessments Encounter Date Diagnosis (ICD Code) Assessment Notes Treatment Notes Treatment Clinical Notes Section Notes 08/25/2024 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 et plantaris (ICD-10 - L85.1) 08/25/2024 Other nail disorders (ICD-10 - L60.8) Plan Of Treatment Pending Test Test Name Order Date 15664-SZOJ SKIN LESIONS, OVER 4 08/25/20 24 99782-MUHC NAIL(S) 08/25/2024 Next Appt Details Follow Up: 3 Months, Reason: Provider Name:Monika Rincon , 03/08/2025 03:00:00 PM, [address] [place] [address], [address], Procedure Notes * Category Sub-Category Detail Notes Keratoma Treatment Parring or Cutting o f Benign Hyperkeratotic Lesion(s) 64080-NK Self Pay Non-Covered Callus care- Nail Reduction Nail Reduction 09679-OM Trimmin g of non-dystrophic nails Progress Notes * Blanca WOODDOB:[birth year] (89 yo F)Acc No.[id number]:08/25/2024 Progress Note Patient:?Cely Blanca English Provider:?Monika Rincon DPM :1935???Age:89 Y???Sex:Female D ate:08/25/2024 Address:[address] Pcp:Tushar Ruiz MD Subjective: * Chief Complaints: [...] * Vitals:?Ht: 5 ft, Wt: 187, B MS: 36.52, Shoe size: 7.5, Ht-cm: 152.4 cm, [...] L60.8? Plan: * Treatment: 2.?Other nail disorders?Procedure: 84715-TWCE NAIL(S) * Procedures:?Keratoma Treatment:?Parring or Cutting of Benign Hyperkeratotic Lesion(s)?77579-UM Self Pay Non-Covered Callus care-.?Nail Reduction:?Nail Reduction?25388-VW Trimming of non-dystrophic nails.? * Procedure Codes:?47210 TRIM SKIN LESIONS, OVER 4 $60, Modifiers: GY [address] TRIM NAIL(S), Modifiers: GY * Follow Up:?3 Months * Images: * Sign off status: Completed true * Provider:?Monika Rincon DPM Date:?2023 Generated for Rafi clement/Amol/eTransmitting on:?01/22/2025 12:06 PM EDT History and Physical Notes * [...]
--- OUTSIDE RECORDS SUMMARY | 2025-01-22 12:07 | XMS_ITS ---
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 [...] Provider Name:Monika Rincon , 03/08/2025 03:00:00 PM, [address] [place] [address], [phone], Procedure Notes * Category Sub-Category Detail Notes Keratoma Treatment Parring or Cutting o f Benign Hyperkeratotic Lesion(s) 10885-DD Self Pay Non-Covered Callus care- Nail Reduction Nail Reduction 08572-SM Trimmin g of non-dystrophic nails Progress Notes * Blanca WOODDOB:[birth year] (89 yo F)Acc No.[id number]:11/30/2024 Progress Note Patient:?Blanca WOOD Provider:?Monika MISSY Rincon :1935???Age:89 Y???Sex:Female D ate:11/30/2024 Address:[address] Pcp:Tushar Ruiz MD Subjective: * Chief Complaints: [...] * Vitals:?Ht: 5 ft, Wt: 185, B NH: 36.13, Shoe size: 7.5, BP: 130/80 mm [...] Procedures:?Keratoma Treatment:?Parring or Cutting of Benign Hyperkeratotic Lesion(s)?36952-RU Self Pay Non-Covered Callus care-.?Nail Reduction:?Nail Reduction?69646-JQ Trimming of non-dystrophic nails.? * Procedure Codes:?08220 TRIM SKIN LESIONS, OVER 4 $60, Modifiers: GY [address] TRIM NAIL(S), Modifiers: GY * Follow Up:?3 Months * Images: * Sign off status: Completed true * Provider:?Monika Rincon DPM Date:?2024 Generated for Rafi celment/Amol/eTransmitting on:?01/22/2025 12:07 PM EDT History and Physical Notes * [...]
== END 2025-01-22 10:20 | disposition home or self-care (01) ==
LOC: HO.LAB 10:19
PROVIDERS: Absent Provider Internal Medicine; PCP Internal Medicine; Visit Provider Internal Medicine Nephrology
DX: E11.9 Type 2 diabetes mellitus without complications (principal)
CPT/HCPCS: 36415; 80051; 82043; 82310; 82565; 82570; 83036; 83735; 83970; 84156; 84520; 85025

== ENCOUNTER 2025-05-08 10:08 | Outpatient (AMB) | payer MEDICARE, SELFPAY ==
--- NOTE | 2025-05-08 10:29 | MHC.PC.OV ---
Vital Signs 05/08/25 10:31 Height 4 ft 11.84 in Weight 180 lb BMI 35.3 BP 153/68 H Respiration 16 Pulse 64 Pulse Source Pulse Oximeter Temp 97.8 F Temp Source Temporal Artery Scan Pulse Oximetry (%) 97 Oxygen Delivery Method Room Air Intake Visit Reasons: establish care Statistical Financial Analyst Required: No Accompanied by: daughter Allergies adhesive tape Allergy (Unknown, Uncoded 05/08/25 10:29) rash Tobacco use date assessed: 05/08/25 Fall risk assessment: 1 Fall in past year Last assessed Fall Risk: 05/08/25 Dental Screening Dental Screen Date: 05/08/25 Did you have a dental visit in the last 12 months?: Yes Did you have a dental problem in the last 6 months where you did not have access to dental care?: No Was dental information given to patient?: Patient has dentist [facility] Medical History (Updated 05/11/25 @ 07:54 by Bridger Plummer MD) 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 Surgical History History of lumpectomy of right breast History of left breast biopsy (05/06/12) History of dilation and curettage Family History Father Prostate cancer Mother Breast cancer Family/Other Breast cancer, Onset Age: 50 Paternal Aunt Breast cancer Social History (Updated 05/08/25 @ 10:38 by PRATEEK Cullen) Household Members: None Housing: House Are you a primary career center director to a significant other at home: No Do you presently have visiting nurse or other home services: No Alcohol intake: current Alcohol intake frequency: does not drink Patient Tobacco Use Status: Never used Tobacco service: No Current occupational status: retired Cognitive needs: No Hearing needs: No Vision needs: Yes (reading glasses) Questionnaire PHQ-9 Over the last 2 weeks, how often have you been bothered by any of the following problems? 1. Little interest or pleasure in doing things: not at all 2. Feeling down, depressed, or hopeless: not at all 3. Trouble falling or staying asleep, or sleeping too much: not at all 4. Feeling tired or having little energy: not at all 5. Poor appetite or overeating: not at all 6. Feeling bad about yourself - or that you are a failure or have let yourself or your family down: not at all 7. Trouble concentrating on things, such as reading the newspaper or watching television: not at all 8. Moving or speaking so slowly that other people could have noticed. Or the opposite - being so fidgety or restless that you have been moving around a lot more than usual: not at all 9. Thoughts that you would be better off or of hurting yourself in some way: not at all Total score: 0 Source: Developed by Drs. Gaurang Vences, Joyce Dan, Gary Sanchze and colleagues, with an educational clyde from [employer]. Thrive Questionnaire Date Thrive assessed: 05/08/25 I am a: Patient What is your living situation today?: I have a steady place to live Within the past 12 months, did the food you bought not last and you didn't have the money to get more?: Never true Within the past 12 months, did you worry whether your food would run out before you got money to buy more?: Never true Do you have trouble paying for medicines?: No Do you have trouble getting transportation to medical appointments?: No Do you have trouble paying your heating and electricity bill?: No Do you have trouble taking care of your child, family member or friend?: No Do you have trouble with day-to-day activities such as bathing, preparing meals, shopping, managing finances, etc.?: No Are you currently unemployed and looking for a job?: No Are you interested in more education?: No Please select the resources that you would like help with: None THRIVE Score: 0 AUDIT C Alcohol Use Questionnaire (AUDIT-C) 1. How often do you have a drink containing alcohol?: Never 3. How often do you have six or more drinks on one occasion?: Never Total Score: 0 MICHAEL-7 AMB Questionnaire MICHAEL-7 Date MICHAEL - 7 assessed: 05/08/25 Feeling nervous, anxious, or on edge: 0 = Not at all Not being able to stop or control worryin = Not at all Worrying too much about different things: 0 = Not at all Trouble relaxin = Not at all Being so restless that it is hard to sit still: 0 = Not at all Becoming easily annoyed or irritable: 0 = Not at all Feeling afraid as if something awful might happen: 0 = Not at all Total MICHAEL-7 score (0-4 normal; 5-9 mild; 10-14 moderate; 15-21 severe): 0 Source: Developed by Drs. Gaurang Vences, Joyce Dan, Gary Sanchez and colleagues, with an educational clyde from [employer]. Physical exam (Primary Care) Vital Signs: Last Vital Signs Temp 97.8 F 05/08/25 10:31 Pulse 64 05/08/25 10:31 Resp 16 05/08/25 10:31 BP 153/68 H 05/08/25 10:31 Pulse Ox 97 05/08/25 10:31 Oxygen Delivery Method Room Air 05/08/25 10:31 BMI result Body Mass Index 35.3 Tobacco/Smoking Status: Tobacco use Status Tobacco use date assessed 05/08/25 05/08/25 10:38 Patient Tobacco Use Status Never used Tobacco 05/08/25 10:38 PHQ-9: PHQ-9 Score PHQ-9: Total score 0 05/08/25 10:38 Thrive Assessment: Date of Thrive Assessment Date Thrive assessed 05/08/25 05/08/25 10:38 Coding Level of Care Code New Pt Level 4 (70215) Complex EM visit Add On G2211 Diagnoses 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 - Hypertension: The patient is currently on atenolol for blood pressure management, with no refills remaining. - Gout: The patient is prescribed allopurinol with one refill remaining. - Chronic Kidney Disease: The patient has elevated creatinine levels and is under the care of a mortgage loan counselor at [facility]. - Urinary Incontinence: The patient experiences occasional urinary leakage and is under the care of a urologist. - Breast Cancer: The patient has a history of breast cancer, managed with medication for five years without chemotherapy. Social History - The patient lives independently and is able to drive, including at night, without issues such as halos around lights. - She is a retired commercial loan officer and does not consume alcohol or smoke. - The patient is technologically savvy, using a laptop, iPad, and cell phone for various tasks. - She maintains an active lifestyle, avoiding prolonged periods of inactivity such as watching TV all day. Review of Systems - Cardiovascular: Reports no issues with driving at night, such as halos around lights. - Genitourinary: Reports occasional urinary incontinence. - Neurological: Denies confusion or memory issues, able to have phone conversations without problems. Physical Exam General: Cooperative and healthy appearing Nutritional Appearance: Well nourished Orientation/consciousness: Patient oriented x3 Limitations: No limitations Head: Normal to inspection General: Appearance normal, both eyes and all related structures Neck: Normal visual inspection Chest: Normal palpation of entire chest wall Respiratory: N ormal respiratory effort Neurology: Patient oriented x3, no confusion, remembers things well, very tech savvy for 89 years old. Results - Labs: Elevated creatinine levels indicating impaired kidney function. Plan 1. Essential Hypertension - Continue current antihypertensive medication regimen with atenolol. - Monitor blood pressure regularly, considering manual measurements for accuracy. 2. Gout - Continue allopurinol for gout management with one refill remaining. 3. Chronic Kidney Disease - Continue follow-up with nephrology for management of elevated creatinine levels. 4. Urinary Incontinence - Continue follow-up with urology for management of urinary incontinence. 5. Breast Cancer - Continue current medication regimen for breast cancer management without chemotherapy. Discussion Notes During the visit, we discussed the continuation of current medications for hypertension and gout, ensuring refills are managed appropriately. We also reviewed the importance of regular follow-ups with nephrology and urology for kidney function and urinary incontinence management. The patient is advised to continue her current breast cancer medication regimen without chemotherapy. Follow-up visits are scheduled every six months, with the option for earlier appointments if needed. Patient Instructions - Continue taking your blood pressure and gout medications as prescribed. - Monitor your blood pressure at home, using manual measurements if possible. - Follow up with your mortgage loan counselor and urologist as scheduled. - Maintain your current breast cancer medication regimen. - Schedule routine check-ups every six months, or sooner if necessary. (2) Essential hypertension: Code(s): I10 - Essential (primary) hypertension Category: Medical Plan: BP is stable. Continue current meds
[2025-05-08 10:31] VITALS: BP 153/68; PULSE 64; RESP 16; TEMP 36.6; O2SAT 97; BMI 35.3
--- OUTSIDE RECORDS SUMMARY | 2025-05-08 11:09 | XMS_ITS | Encounter Summary ---
Author Organization [facility] Address [address] [place] [address] Phone Care Team Providers Care Geographic Information System Analyst Name Role Phone Tushar Ruiz MD Primary Care Provider [phone] Encounter Details Date Type Department Care Team (Late st Contact Info) Description 01/20/2022 Ancillary Orders [facility],Outside Imaging [address] [place] [address] System, Provider Not In, [place] [address] Social History Tobacco Use Types Packs/Day Years Used Date Smoking Tobacco: Never Assessed Comments Unknown Sex and Gender Information Value Date Recorded Sex Assigned at Not on file Legal Sex Female 2:10 PM EDT Gender Identity Not on file Sexual Orientation Not on file documented as of this encounter Plan of Treatment Not on file documented as of this encounter Results * US Breast Outside (No Interpretation) (12/12/2021 12:00 AM EST) Narrative SYSTEMGENERATED, DOCUMENTATION - 01/20/2022 5:44 PM EDT This study is for PACS storage only and not for interpretation. us Provider Not In System PhD IMG OUTSIDE IMAGING W /OUT INTERPRETATION Final Result documented in this encounter Visit Diagnoses Not on filedocumented in this encounter Care Teams Geographic Information System Analyst Relationship Specialty Start Date End Date Tushar Ruiz MD [address] [place] [address] PCP - General Internal Medicine 01/14/22 documented as of this encounter Additional Source Comments The information contained in this document represents components of the legal health record. It is not the complete legal health record.[facility]
--- OUTSIDE RECORDS SUMMARY | 2025-05-08 11:09 | XMS_ITS | Encounter Summary ---
Author Organization [facility] Address [address] [place] [address] Phone Care Team Providers Care Automotive Design Drafter Name Role Phone Tushar Ruiz MD Primary Care Provider [phone] Encounter Details Date Type Department Care Team (Late st Contact Info) Description 02/18/2023 Telephone [facility] [address] [place] [id number] Pearl Sloan Social History Tobacco Use Types [...] Department Care Team (Latest Contact Info) Description 05/13/2025 Orders Only [facility] [address] [address] Pearl Schmitt ARNP [address] [address] Chronic kidney disease, stage 4 (severe) (HCC); Hypertension; Anemia in chronic kidney disease; Secondary hyperparathyroidism of renal origin (HCC) 06/04/2025 1:00 PM EDT Office [facility] [address] [address] Pearl Schmitt ARNP [address] [address] documented as of this encounter Visit Diagnoses Not on filedocumented in this encounter Care Teams Automotive Design Drafter Relationship Specialty Start Date End Date Tushar Ruiz MD [address] [place] [address] PCP - General Internal Medicine 04/16/22 documented as of this encounter
--- OUTSIDE RECORDS SUMMARY | 2025-05-08 11:09 | XMS_ITS | Patient Health Record ---
Author Organization [facility] Address [address] [place] [address] Care Team Providers Care Shuttle Hand Name Role Phone Bridger Plummer Primary Care Provider [phone] BlackMonika Unavailable [phone] Allergies Allergen (clinical drug ingredient) Drug/Non Drug Allergy documented on EMR Reaction Allergy Type Onset Date Status Adhesive Unknown Allergy Active Results Component Value Reference Range Notes HEMOGLOBIN A1C (GLYCOHEMOGLO BIN) Reviewed date:11/30/2024 10:51:11 AM Interpretation: Performing Lab: Notes/Report: HEMOGLOBIN A1C % (HH) 6.3 HEMOGLOBIN A1C (GLYCOHEMOGLO BIN) Reviewed date:03/08/2025 12:58:48 PM Interpretation: Performing Lab: Notes/Report: HEMOGLOBIN A1C % (HH) 6.4 Reason For Referral No Information Medications Medication SIG (Take, Route, Frequency, Duration) Notes Start Date End Date Status Lisinopril 10 MG 1 tablet Orally Once a day; Duration: 30 day(s) Not-Taking Vitamin C Not-Taking hydrALAZINE HCl 25 MG 1 tablet with food Orally Twice a day Active Allopurinol Active Atenolol 50 MG 1 tablet Orally Once a day; Duration: 30 day(s) Active Atorvastatin Calcium 10 MG 1 tablet Orally Once a day; Duration: 30 day(s) Active Medrol 4 MG as directed Orally Daily; Duration: 6 days 12/16/2023 Not-Taki ng Iron 325 (65 Fe) MG as directed Orally Not-Taking Letrozole 2.5 MG 1 tablet Orally Once a day; Duration: 30 day(s) Active Lisinopril-hydroCHLOROthi azide 20-12.5 MG 1 tablet Orally Once a day Active Vitamin D3 Active Immunizations Vaccine Route Administration Date Status Comme nts Influenza Unknown 12/23/2023 Refused COVID-19 Pfizer BioNTech Vaccine Unknown 08/12/2021 Administered First Dose: 01/07/2021 Second Dose: 01/28/2021 Social History Tobacco Use: Social History Observation [...] Problem Status W/U Status Risk Notes Problem Type 2 diabetes mellitus with diabetic chronic kidney disease (E11.22) Active confirmed Problem Polyneuropathy due to type 2 diabetes mellitus (317502669) Type 2 diabetes mellitus with diabetic polyneuropathy (E11.42) Active confirmed Vital Signs Blood pressure diastolic 80 mm Hg 03/08/2025 Height 5 ft in 03/08/2025 Blood pressure systolic 130 mm Hg 03/08/2025 Weight 185 lbs 03/08/2025 BMI 36.13 kg/m2 03/08/2025 Procedures Procedure Date Ordered Date Performed Result Body Sit e 33373-GPSZ SKIN LESIONS, OVER 4 08/25/2024 N/A 41126-WIQQ NAIL(S) 08/25/2024 N/A 49528-HOAD SKIN LESIONS, OVER 4 03/08/2025 N/A O2418-LEWJUNLL DYSTROPHIC NAILS ANY # 03/08/2025 N/A Encounters Encounter Location Date [facility] [address] [place] [address] [facility]/25/2024 Monika Black 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 et plantaris L85.1 and Other nail disorders L60.8 [facility] [address] 11/30/2024 Monika Black 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 et plantaris L85.1 and Other nail disorders L60.8 [facility] [address] 03/08/2025 Monika Black Type 2 diabetes mellitus with diabetic polyneuropathy E11.42 Assessments Encounter Date Diagnosis (ICD Code) Assessment Notes Treatment Notes Treatment Clinical Notes Section Notes 08/25/2024 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 et plantaris (ICD-10 - L85.1) 11/30/2024 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 et plantaris (ICD-10 - L85.1) 03/08/2025 Type 2 diabetes mellitus with diabetic polyneuropathy (ICD-10 - E11.42) 11/30/2024 Other nail disorders (ICD-10 - L60.8) 08/25/2024 Other nail disorders (ICD-10 - L60.8) 03/08/2025 Other Plan Of Treatment Pending Test Test Name Order Date *CBC With Differential/Platelet 12/15/19 24 82241-IFKN SKIN LESIONS, OVER 4 12/23/19 24 23831-KLWK SKIN LESIONS, OVER 4 09/06/20 23 29594-CCKN SKIN LESIONS, OVER 4 02/09/20 23 75783-JXLX SKIN LESIONS, OVER 4 05/24/20 23 54712-TBZV SKIN LESIONS, OVER 4 04/03/20 24 36904-MTAA SKIN LESIONS, OVER 4 08/25/20 24 50587-EZNC SKIN LESIONS, OVER 4 03/08/20 25 04119-GFZG SKIN LESIONS, OVER 4 12/20/19 21 40224-ZSBX SKIN LESIONS, OVER 4 03/24/20 21 29396-ZPDB SKIN LESIONS, OVER 4 06/26/20 21 87385-FLRQ SKIN LESIONS, OVER 4 09/25/20 21 01000-GPAW SKIN LESIONS, OVER 4 01/06/20 22 73173-YIOO SKIN LESIONS, OVER 4 04/09/20 22 33157-BCHW SKIN LESIONS, OVER 4 07/16/20 22 27663-PJGO SKIN LESIONS, OVER 4 11/05/19 23 90294-ZAUH SKIN LESIONS, OVER 4 10/08/20 11 47091-QDNZ SKIN LESIONS, OVER 4 01/04/20 12 56092-BIYM SKIN LESIONS, OVER 4 03/28/20 12 62974-SRIK SKIN LESIONS, OVER 4 06/27/20 12 95077-GVDP SKIN LESIONS, OVER 4 09/26/20 12 62196-EWNO SKIN LESIONS, OVER 4 07/03/20 13 69033-YXOM SKIN LESIONS, OVER 4 10/02/20 13 62603-LHRI SKIN LESIONS, OVER 4 01/09/20 14 32647-JCSU SKIN LESIONS, OVER 4 04/12/20 14 34013-HQFL SKIN LESIONS, OVER 4 07/16/20 14 59333-TXEG SKIN LESIONS, OVER 4 10/01/20 14 29971-JYJU SKIN LESIONS, OVER 4 01/01/20 15 87311-KIVG SKIN LESIONS, OVER 4 04/01/20 15 56278-AYXO SKIN LESIONS, OVER 4 07/01/20 15 84578-XZIJ SKIN LESIONS, OVER 4 09/30/20 15 37820-VYYS SKIN LESIONS, OVER 4 12/30/19 16 54775-ZPEH SKIN LESIONS, OVER 4 04/06/20 16 96652-IRFG SKIN LESIONS, OVER 4 07/09/20 16 88913-CGOF SKIN LESIONS, OVER 4 10/05/20 16 72287-BNLR SKIN LESIONS, OVER 4 01/05/20 17 22487-DQKR SKIN LESIONS, OVER 4 04/05/20 17 27483-ARGM SKIN LESIONS, OVER 4 07/05/20 17 93176-MMDC SKIN LESIONS, OVER 4 10/04/20 17 23905-LEZL SKIN LESIONS, OVER 4 01/11/20 18 99781-IQEZ SKIN LESIONS, OVER 4 01/24/20 19 19717-GJCU SKIN LESIONS, OVER 4 06/05/20 19 64752-XUZB SKIN LESIONS, OVER 4 09/07/20 19 32451-UMVN SKIN LESIONS, OVER 4 12/07/19 20 97110-UJTA SKIN LESIONS, OVER 4 03/14/20 20 63032-MHZU SKIN LESIONS, OVER 4 06/17/20 20 08407-FESA SKIN LESIONS, OVER 4 09/16/20 20 64594-CEUC SKIN LESIONS, 2 TO 4 04/03/20 13 55384-AHPP SKIN LESIONS, 2 TO 4 12/27/19 13 74568-ZWZY NAIL(S) 04/03/2013 16257-HTSS NAIL(S) 09/26/2012 21115-NEPW NAIL(S) 12/26/2012 71067-NBWY NAIL(S) 07/03/2013 84102-QMZN NAIL(S) 10/02/2013 03304-YEFR NAIL(S) 06/27/2012 44071-AEWU NAIL(S) 03/28/2012 18683-NDJE NAIL(S) 01/04/2012 69849-NBDW NAIL(S) 10/08/2011 14495-QTAY NAIL(S) 09/30/2015 76086-PFXB NAIL(S) 07/01/2015 14282-ZCSI NAIL(S) 04/01/2015 58338-BXYB NAIL(S) 12/31/2014 25865-VQCU NAIL(S) 10/01/2014 92768-QXFB NAIL(S) 07/16/2014 40447-RVQY NAIL(S) 04/12/2014 54227-EEFA NAIL(S) 01/08/2014 51562-KJQK NAIL(S) 09/16/2020 26126-URVX NAIL(S) 06/17/2020 10204-BLHU NAIL(S) 03/14/2020 53686-KQSI NAIL(S) 12/07/2019 29554-UFWK NAIL(S) 09/07/2019 42344-VHGA NAIL(S) 06/05/2019 01654-OYOL NAIL(S) 01/23/2019 34035-ZYNL NAIL(S) 01/10/2018 04778-NSST NAIL(S) 10/04/2017 33284-KSQS NAIL(S) 07/05/2017 46598-CFWX NAIL(S) 04/05/2017 44471-FIYF NAIL(S) 01/04/2017 33440-QWIB NAIL(S) 10/05/2016 10812-XFSJ NAIL(S) 07/09/2016 70498-JUBT NAIL(S) 04/06/2016 61391-MZKM NAIL(S) 12/30/2015 50666-XMEO NAIL(S) 11/05/2022 57204-JQKO NAIL(S) 07/16/2022 10958-MJSS NAIL(S) 04/09/2022 06367-TSWB NAIL(S) 01/05/2022 32946-KYHG NAIL(S) 09/25/2021 28481-SNAI NAIL(S) 06/26/2021 14529-LTHE NAIL(S) 03/24/2021 51658-LUPJ NAIL(S) 12/19/2020 70184-RCGK NAIL(S) 08/25/2024 35191-DQCI NAIL(S) 04/03/2024 98772-RQET NAIL(S) 05/24/2023 24060-GABA NAIL(S) 02/08/2023 12201-ASPP NAIL(S) 09/06/2023 67803-HCAZ NAIL(S) 12/23/2023 B7396-EFWWFQMU DYSTROPHIC NAILS ANY # Next Appt Details Provider Name:Monika Rincon , 06/11/2025 10:00:00 AM, [address] [place], [address], Insurance Providers Payer Name Payer Address Payer Phone Subscriber Number Group Number Insured Name Patient Relationship to Insured Coverage Start Date Coverage End Date Medicare [facility] [employer] [address] [place] [address] [id number] [place], [place] Self - patient is the insured 1 [employer] [address] [place] [phone] [id number] [place], [place] Self - patient is the insured [...]
== END 2025-05-08 10:56 | disposition home or self-care (01) ==
LOC: HO.HMCSH 10:08
PROVIDERS: PCP Internal Medicine; Visit Provider Internal Medicine
DX: C50.911 Malignant neoplasm of unspecified site of right female breast (principal); I10 Essential (primary) hypertension

== ENCOUNTER → 2025-05-08 10:08 | Outpatient (BNVA) | payer MEDICARE, SELFPAY | PROVIDERS: PCP Internal Medicine; Visit Provider Internal Medicine | DX: I12.9 Hypertensive chronic kidney disease with stage 1 through stage 4 chronic kidney disease, or unspecified chronic kidney disease (principal); N18.9 Chronic kidney disease, unspecified; Z85.3 Personal history of malignant neoplasm of breast; M10.9 Gout, unspecified | CPT/HCPCS: 99202 ==

== ENCOUNTER 2025-05-28 10:42 | Outpatient (REF) | payer MEDICARE, SELFPAY ==
[2025-05-28 10:55] LABS: MANUAL DIFF FLAG NO
--- OUTSIDE RECORDS SUMMARY | 2025-05-28 11:26 | XMS_ITS | Encounter Summary ---
Author Organization [facility] Address [address] [place] [address] Phone Care Team Providers Care Agriculture Extension Specialist Name Role Phone Tushar Ruiz MD Primary Care Provider [phone] Encounter Details Date Type Department Care Team (Late st Contact Info) Description 01/20/2022 Ancillary Orders [facility],Outside Imaging [address] [place] [address] System, Provider Not In, [place] [address] Social History Tobacco Use Types Packs/Day Years [...] on filedocumented in this encounter Care Teams Agriculture Extension Specialist Relationship Specialty Start Date End Date Tushar Ruiz MD [address] [place] [address] PCP - General Internal Medicine 01/14/22 documented as of this encounter Additional Source Comments The information contained in this document represents components of the legal health record. It is not the complete legal health record.[facility]
--- OUTSIDE RECORDS SUMMARY | 2025-05-28 11:26 | XMS_ITS | Encounter Summary ---
Author Organization [facility] Address [address] [place] [address] Phone Care Team Providers Care Utility Clerk Name Role Phone Tushar Ruiz MD Primary Care Provider [phone] Encounter Details Date Type Department Care Team (Late st Contact Info) Description 02/18/2023 Telephone [facility] [address] [place] [phone] Pearl Sloan Social History Tobacco Use Types [...] Care Team (Late st Contact Info) Description 06/04/2025 1:00 PM EDT Office Visit [facility] [address] [address] Pearl Schmitt ARNP [address] [address] documented as of this encounter Visit Diagnoses Not on filedocumented in this encounter Care Teams Utility Clerk Relationship Specialty Start Date End Date Tushar Ruiz MD [address] [place] [address] PCP - General Internal Medicine 04/16/22 documented as of this encounter
[2025-05-28 11:36] LABS: Hematocrit 38.1 % (37.0-47.0); Hemoglobin 11.6 g/dl (12.0-16.0); Imm Gran Abs Auto 0.05 X10*3/uL (0.00-0.03); Imm Gran Pct Auto 0.9 % (0.0-0.4); Lymphocytes Absolute Auto 1.4 X10*3/uL (1.2-4.9); Mean Corpuscular HGB Conc 30.4 g/dl (31.0-35.0); Mean Corpuscular Hemoglobin 28.8 pg (27.0-33.0); Mean Corpuscular Volume 94.5 fL (80.0-98.0); NRBC Abs Auto 0.000 X10*3/uL (0.0-0.012); NRBC Pct Auto 0.0 /100WBC (0.0-0.2); Platelet Count 171 X10*3/uL (160-400); Red Blood Count 4.03 X10*6/uL (4.20-5.50); White Blood Count 5.6 X10*3/uL (4.8-10.8)
[2025-05-28 12:21] LABS: Microalbum/Creatinine Ratio Ur 51.4 ug/mg cr (<30); Protein/Creatinine Ratio, Ur 0.14 (<0.2); Total Protein Urine Random 15 mg/dL (<12)
[2025-05-28 12:30] LABS: Anion Gap 13 (12-20); Blood Urea Nitrogen 54 mg/dL (9-16); Calcium 10.2 mg/dL (8.4-10.2); Carbon Dioxide 26 mmol/L (22-29); Chloride 108 mmol/L (96-108); Estimated Glomerular Filt Rate 21; Iron 57 mcg/dL (30-160); Percent Iron Saturation 33 % (15-50); Potassium 4.3 mmol/L (3.3-5.1); Sodium 143 mmol/L (135-145); Total Iron Binding Capacity 175 mcg/dL (228-428); Unsaturated Iron Binding 118 ug/dL
[2025-05-28 12:43] LABS: Parathyroid Hormone Intact 203.8 pg/mL (8.7-77.1)
[2025-05-28 12:50] LABS: Ferritin 539 ng/mL (10-250)
== END 2025-05-28 10:43 | disposition home or self-care (01) ==
LOC: HO.LAB 10:42
PROVIDERS: PCP Internal Medicine; Visit Provider Internal Medicine Nephrology
DX: I12.9 Hypertensive chronic kidney disease with stage 1 through stage 4 chronic kidney disease, or unspecified chronic kidney disease (principal); N18.4 Chronic kidney disease, stage 4 (severe); D63.1 Anemia in chronic kidney disease; N25.81 Secondary hyperparathyroidism of renal origin
CPT/HCPCS: 36415; 80051; 82043; 82306; 82310; 82565; 82570; 82728; 83540; 83970; 84156; 84520; 85025

== ENCOUNTER 2025-06-07 12:46 | Outpatient (AMB) | payer MEDICARE, SELFPAY ==
--- NOTE | 2025-06-07 12:52 | MHC.OFFVIS ---
Vital Signs 06/07/25 12:57 Height 4 ft 11.84 in Weight 179 lb BMI 35.1 BP 156/84 H Blood Pressure Location Lt brachial Position Sitting Pulse 68 Intake Visit Reasons: 6 mth breast exam Intake Note: Patient here for 6mo follow up, breast exam. Patient c/o: no concern w/breasts. Denies lumps, pain, redness, nipple discharge. MM: 01-09-2025 Wide Area Network Systems Administrator Required: No Accompanied by: daughter Jeanie Allergies adhesive tape Allergy (Unknown, Uncoded 06/07/25 12:56) rash Medication List - Last Reconciled 06/07/25 by Mitchell Rothman MD allopurinol 100 mg DAILY PRN atenolol 50 mg PO DAILY atorvastatin 10 mg PO DAILY cholecalciferol (vitamin D3) (Vitamin D3) 50 mcg PO DAILY hydralazine 25 mg PO BID letrozole 2.5 mg PO DAILY lisinopril-hydrochlorothiazide 20-12.5 mg 1 tab PO DAILY HPI Comments Details: 89 year old female former patient of Dr. Hodge,?found on screening mammogram and ultrasound of 12/10/2021 to have a nodule in the right breast at the upper outer quadrant. ? 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 She underwent a right breast lumpectomy with sentinel node biopsy on 12/29/2021. Pathology revealed a mucinous carcinoma, grade 2, 0.9 cm, with negative margins (pT1b N0 (sn) (i-), 0 of 2 lymph nodes with metastatic carcinoma. She was evaluated by Dr. Lewis and started on letrozole. She was referred to Radiation Oncology (Dr. Ramirez) at [facility]. She has decided to declined radiation therapy. 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 During the workup an ultrasound identified two masses in the left breast. An ultrasound dated April 08, 2012 showed a slight increase in size of both of the lesions. An US guided biopsy of both of these lesions identifying fatty tissue consistent with angiolipomas.? Her family history is positive for her mother having breast cancer. She feels well and denies any new breast symptoms. Her most recent mammogram of 01/08/2025 revealed no mammographic evidence of malignancy (BI-RADS 2). Follow-up mammogram in 1 year is recommended. She is due to see Dr. Lewis on 07/25/2025. [facility] Medical History 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 Surgical History History of lumpectomy of right breast History of left breast biopsy (05/06/12) History of dilation and curettage Family History Father Prostate cancer Mother Breast cancer Family/Other Breast cancer, Onset Age: 50 Paternal Aunt Breast cancer Social History Household Members: None Housing: House Are you a primary home care provider to a significant other at home: No Do you presently have visiting nurse or other home services: No Alcohol intake: current Alcohol intake frequency: does not drink Patient Tobacco Use Status: Never used Tobacco service: No Current occupational status: retired Cognitive needs: No Hearing needs: No Vision needs: Yes (reading glasses) Review of Systems Const All systems reviewed & are unremarkable except as noted in HPI and below Card Denies chest pain, Denies rapid heart rate, Denies irregular heart rhythm and Denies dyspnea Resp Denies cough, Denies hemoptysis and Denies dyspnea GI Denies abdominal pain Denies nipple discharge Skin/Breast Denies breast swelling, Denies breast skin changes, Denies breast pain, Reports breast mass, Denies change in breast shape and Denies nipple discharge Physical Exam Vital Signs: Last Vital Signs Pulse 68 06/07/25 12:57 BP 156/84 H 06/07/25 12:57 BMI result Body Mass Index 35.1 Const General: no acute distress and well developed Nutritional Appearance: well nourished Orientation/consciousness: patient oriented x3 Limitations: no limitations Chest Other: Right breast: Incision in right breast is clean, dry, and intact without hematoma or seroma. No new skin change, nipple retraction, palpable mass, or enlarged lymph nodes are appreciated. Left breast: No new skin change, nipple discharge, nipple retraction, palpable mass, or enlarged lymph nodes are appreciated. Resp Other: breathing comfortably on room air, no shortness of breath Skin Other: warm, dry, no rash Neuro Other: Mobility Assessment: 1. 3 meter assessment time (seconds):7 2. Gait observations: slow tentative pace General: patient oriented x3 Extrem Other: no edema Assessment & Plan Assessment & Plan (1) Mucinous carcinoma of right breast: Code(s): C50.911 - Malignant neoplasm of unspecified site of right female breast Category: Medical Plan 89-year-old female patient returning for follow-up examination after a lumpectomy and sentinel node biopsy for a mucinous carcinoma right breast. She feels well and denies any new breast symptoms. Examination today reveals no new suspicious findings in either breast. The most recent mammogram of 01/09/2025 revealed no mammographic evidence of malignancy ( BI-RADS 2 ). She should follow up in 6 months for routine breast examination. She is welcome to call sooner for any new concerns. She will continue to follow up with Dr. Lewis. Coding Level of Care Code Est Pt Level 3 (86121) Complex EM visit Add On G2211 Diagnoses Mucinous carcinoma of right breast C50.911
[2025-06-07 12:57] VITALS: BP 156/84; PULSE 68; BMI 35.1
== END 2025-06-07 13:17 | disposition home or self-care (01) ==
LOC: HO.HGS 12:46
PROVIDERS: PCP Internal Medicine; Visit Provider Surgery
DX: C50.911 Malignant neoplasm of unspecified site of right female breast (principal)
CPT/HCPCS: 99213; G2211

== ENCOUNTER → 2025-06-07 12:46 | Outpatient (BNVA) | payer MEDICARE, SELFPAY | PROVIDERS: PCP Internal Medicine; Visit Provider Surgery | DX: C50.411 Malignant neoplasm of upper-outer quadrant of right female breast (principal) | CPT/HCPCS: 99212 ==

== ENCOUNTER → 2025-06-27 15:31 | Outpatient (BNVA) | payer MEDICARE, SELFPAY | PROVIDERS: PCP Internal Medicine; Visit Provider Internal Medicine Endocrinology, Diabetes & Metabolism | DX: E21.3 Hyperparathyroidism, unspecified (principal) | CPT/HCPCS: 99202 ==

== ENCOUNTER 2025-07-10 09:58 | Outpatient (REF) | payer MEDICARE, SELFPAY ==
--- OUTSIDE RECORDS SUMMARY | 2024-07-13 04:30 | XMS_ITS ---
Author Organization [facility] Address [address] [place] [address] Care Team Providers Care Technical Training Specialist Name Role Phone Bridger Plummer Primary Care Provider Monika Rincon [phone] Encounters Encounter Location Date Provider Diagnosis [facility] [address] [place] [address] 07/13/2024 Monika Rincon Plan Of Treatment Next Appt Details Provider Name:Monika Tirado Sergey , 09/24/2025 01:30:00 PM, [address] [place], [address], Progress Notes * ISRAELBlanca JDOB:[birth year] (89 yo F)Acc No.[id number]:07/13/2024 Progress Note Patient: Blanca GARCIA Provider: Bernardo Rincon DPM :1935 A ge:88 Y S ex:Female Date:07/13/2024 Address: [address] [place] [address] Pcp:Bridger Plummer Subjective: * Chief Complaints: * * Medical History: Objective: * Vitals: Assessment: Plan: * Treatment: * Images: * The named appointment provid er may or may not be the originator of this progress note, and it is not deemed complete until electronically signed by the appointment provider. Sign off status: Pending * Provider: Bernardo Rincon DPM Date: 0 07/13/2024 Generated for Rafi clement/Amol/Luis Manuel on: 0 07/10/2025 12:01 PM EDT
--- NOTE | ~2025-07-10 | US_ITS ---
CLINICAL HISTORY: neoplasm of right kidney US RENAL Comparison: US/RI/SR - US RETROPERITONEUM - 01/10/25 09:55 EDT US/RI/SR - US RETROPERITONEUM - 01/03/24 10:10 EDT Findings: Right kidney measures 9.9 cm in length. Mass in the midpole currently measures 3.3 x 2.6 x 3.0 cm compared with 3.2 x 2.6 x 2.6 cm on the prior most recent study and 3.1 x 3.3 x 3.3 cm on 01/03/2024. Cyst in the upper to midpole measures 1.0 cm in greatest diameter compared with 1.4 cm on the prior most recent study. Nonobstructing calculus measures 4 mm previously 6 mm. 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 Left kidney measures 9.9 cm in length. Exophytic cyst in the upper pole measures 1.3 cm compared with 1.4 cm on the prior most recent study. No hydronephrosis of either kidney. Urinary bladder is unremarkable. Prevoid volume 305 mL. Postvoid volume 47 mL. Bilateral ureteral jets are visualized. IMPRESSION: 1. Allowing for technical differences, the solid mass in the right kidney is not significantly changed. In the absence of surgery or intervention, recommend continued follow-up. 2. No right or left hydronephrosis. 3. Nonobstructing right intrarenal calculus. 4. Additional findings as above. This document has been electronically signed by: Rehana Gramajo DO on 07/10/2025 16:51:04
--- OUTSIDE RECORDS SUMMARY | 2025-07-10 12:01 | XMS_ITS | Encounter Summary ---
Author Organization [facility] Address [address] [place] [address] Phone Care Team Providers Care Power Saw Operator Name Role Phone Tushar Ruiz MD Primary Care Provider [phone] Encounter Details Date Type Department Care Team (Late st Contact Info) Description 01/20/2022 Ancillary Orders [facility],Outside Imaging [address] [place] [address] System, Provider [place] In, [place] [address] Social History Tobacco Use Types Packs/Day Years Used Date Smoking Tobacco: Never Assessed Comments Unknown Sex and Gender Information Value Date Recorded Sex Assigned at Not on file Legal Sex Female 2:10 PM EDT Gender Identity Not on file Sexual Orientation Not on file documented as of this encounter Plan of Treatment Not on file documented as of this encounter Results * Mammogram Outside (No Interpretation) (12/02/2020 12:00 AM EST) Narrative SYSTEMGENERATED, DOCUMENTATION - 01/20/2022 5:50 PM EDT This study is for PACS storage only and not for interpretation. us Provider Not In System PhD IMG OUTSIDE IMAGING W /OUT INTERPRETATION Final Result documented in this encounter Visit Diagnoses Not on filedocumented in this encounter Care Teams Power Saw Operator Relationship Specialty Start Date End Date Tushar Ruiz MD [address] [place] [address] PCP - General Internal Medicine 01/14/22 documented as of this encounter Additional Source Comments The information contained in this document represents components of the legal health record. It is not the complete legal health record.[facility]
--- OUTSIDE RECORDS SUMMARY | 2025-07-10 12:01 | XMS_ITS | Encounter Summary ---
Author Organization [facility] Address [address] [place] [address] Phone Care Team Providers Care Respiratory Supervisor Name Role Phone Tushar Ruiz MD Primary Care Provider [phone] Encounter Details Date Type Department Care Team (Late st Contact Info) Description 01/20/2022 Ancillary Orders [facility],Outside Imaging [address] [place] [address] System, Provider Not In, [place] [address] Social History Tobacco Use Types Packs/Day Years [...] Results * US Breast Outside (No Interpretation) (12/10/2021 12:05 AM EST) Narrative SYSTEMGENERATED, DOCUMENTATION - 01/20/2022 5:48 PM EDT This study is for PACS storage only and not for interpretation. us Provider Not In System PhD IMG OUTSIDE IMAGING W /OUT INTERPRETATION Final Result documented in this encounter Visit Diagnoses Not on filedocumented in this encounter Care Teams Respiratory Supervisor Relationship Specialty Start Date End Date Tushar Ruiz MD [address] [place] [address] PCP - General Internal Medicine 01/14/22 documented as of this encounter Additional Source Comments The information contained in this document represents components of the legal health record. It is not the complete legal health record.[facility]
--- OUTSIDE RECORDS SUMMARY | 2025-07-10 12:01 | XMS_ITS | Encounter Summary ---
Author Organization [facility] Address [address] [place] [address] Phone Care Team Providers Care Wind Turbine Performance Engineer Name Role Phone Tushar Ruiz MD Primary Care Provider [phone]- [phone] Encounter Details Date Type Department Care Team (Late st Contact Info) Description 01/20/2022 Ancillary Orders [facility],Outside Imaging [address] [place] [address] System, Provider [place] In, [place] [address] Social History Tobacco Use Types Packs/Day Years [...] encounter Results * Mammogram Outside (No Interpretation) (12/29/2021 12:00 AM EDT) Narrative SYSTEMGENERATED, DOCUMENTATION - 01/20/2022 5:41 PM EDT This study is for PACS storage only and not for interpretation. us Provider Not In System PhD IMG OUTSIDE IMAGING W /OUT INTERPRETATION Final Result documented in this encounter Visit Diagnoses Not on filedocumented in this encounter Care Teams Wind Turbine Performance Engineer Relationship Specialty Start Date End Date Tushar Ruiz MD [address] [place] [address] PCP - General Internal Medicine 01/14/22 documented as of this encounter Additional Source Comments The information contained in this document represents components of the legal health record. It is not the complete legal health record.[facility]
--- OUTSIDE RECORDS SUMMARY | 2025-07-10 12:01 | XMS_ITS | Patient Health Record ---
Author Organization [facility] Address [address] [place] [address] Care Team Providers Care Copper Miner Name Role Phone Swathi Plummerk Primary Care Provider BlackMonika Unavailable [phone] Allergies Allergen (clinical drug ingredient) Drug/Non Drug [...] Date End Date Status Vitamin C Not-Taking Lisinopril 10 MG 1 tablet Orally Once a day; Duration: 30 day(s) Not-Miller ing Iron 325 (65 Fe) MG as directed Orally Not-Taking Medrol 4 MG as directed Orally Daily; Duration: 6 days 12/16/2023 Not-Taki ng Atenolol 50 MG 1 tablet Orally Once a day; Duration: 30 day(s) Active Letrozole 2.5 MG 1 tablet Orally Once a day; Duration: 30 day(s) Active Extra Depth Orthopedic Shoes (1 Pair) with Customized Heat Molded Multidensity Innersoles (3 Pair) Dx: NIDDM/Polyneuropathy (E11.42), Hammertoe Foot Deformity (M20.41,M20.42), Preulcerative Skin Lesion(s) (L85.1); Duration: 365 days 06/11/2025 Active Atorvastatin Calcium 10 MG 1 tablet Orally Once a day; Duration: 30 day(s) Active Vitamin D3 Active Lisinopril-hydroCHLOROth iazide 20-12.5 MG 1 tablet Orally Once a day Active Allopurinol 100 MG 1 tablet Orally Once a day Active hydrALAZINE HCl 25 MG 1 tablet with food Orally Twice a day Active Immunizations Vaccine Route Administration Date Status [...] Are you an other tobacco user? No AUDIT-C (Standard) Question Answer Notes Did you have a drink containing alcohol in the p ast year? No Points 0 Interpretation Negative Problems Problem Type SNOMED Code ICD Code Onset Dates Problem Status W/U Status Risk Notes Problem Acquired hammer toe of right foot (568327687533083 5) Other hammer toe(s) (acquired), right foot (M20.41) Active confirmed Chronic problem, Worse (4) Rx management (4) Problem Acquired hammer toe of left foot (730674030180334 3) Other hammer toe(s) (acquired), left foot (M20.42) Active confirmed Chronic problem, Worse (4) Rx management (4) Problem Polyneuropathy due to type 2 diabetes mellitus (132471306) Type 2 diabetes mellitus with diabetic polyneuropathy (E11.42) Active confirmed Vital Signs Blood pressure diastolic 80 mm Hg 06/11/2025 Height 5 ft in 06/11/2025 Blood pressure systolic 129 mm Hg 06/11/2025 Weight 179 lbs 06/11/2025 BMI 34.95 kg/m2 06/11/2025 Procedures Procedure Date Ordered Date Performed Result Body Sit e 58526-ZLAX SKIN LESIONS, OVER 4 08/25/2024 N/A 57972-QRNA NAIL(S) 08/25/2024 N/A 32014-ESPI SKIN LESIONS, OVER 4 03/08/2025 N/A Y8538-SONQOZFT DYSTROPHIC NAILS ANY # 03/08/2025 N/A 18843-JUEM SKIN LESIONS, OVER 4 06/11/2025 N/A G1859-HTCCNIZB DYSTROPHIC NAILS ANY # 06/11/2025 N/A Encounters Encounter Location Date Provider Diagnosis [address] [address] 08/25/2024 Monika Rincon 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 et plantaris L85.1 and Other nail disorders L60.[address] [address] 11/30/2024 Monika Black 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 et plantaris L85.1 and Other nail disorders L60.[address] [address] 03/08/2025 Monika Rincon Type 2 diabetes mellitus with diabetic polyneuropathy E11.[address] [address] 06/11/2025 Monika Black Type 2 diabetes mellitus with diabetic polyneuropathy E11.42 ; Other hammer toe(s) (acquired), right foot M20.41 and Other hammer toe(s) (acquired), left foot M20.42 Assessments Encounter Date Diagnosis (ICD Code) Assessment Notes Treatment Notes Treatment Clinical Notes Section Notes 08/25/2024 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 et plantaris (ICD-10 - L85.1) 11/30/2024 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 et plantaris (ICD-10 - L85.1) 03/08/2025 Type 2 diabetes mellitus with diabetic polyneuropathy (ICD-10 - E11.42) 06/11/2025 Other hammer toe(s) (acquired), right foot (ICD-10 - M20.41) Chronic problem, Worse (4) Rx management (4) Patient Educated with: DIABETIC FOOT CARE INSTRUCTIONS. pdf (DIABETIC FOOT CARE INSTRUCTIONS. pdf) 06/11/2025 Type 2 diabetes mellitus with diabetic polyneuropathy (ICD-10 - E11.42) 06/11/2025 Other hammer toe(s) (acquired), left foot (ICD-10 - M20.42) Chronic problem, Worse (4) Rx management (4) 11/30/2024 Other nail disorders (ICD-10 - L60.8) 08/25/2024 Other nail disorders (ICD-10 - L60.8) 03/08/2025 Other Plan Of Treatment Pending Test Test Name Order Date *CBC With Differential/Platelet 12/15/19 24 43970-DJXK SKIN LESIONS, OVER 4 12/23/19 24 25743-MHZB SKIN LESIONS, OVER 4 09/06/20 37602-CJQL SKIN LESIONS, OVER 4 02/09/20 23 05033-MXAG SKIN LESIONS, OVER 4 05/24/20 23 32311-GOBA SKIN LESIONS, OVER 4 04/03/20 24 98890-CZJA SKIN LESIONS, OVER 4 08/25/20 24 95739-YTZB SKIN LESIONS, OVER 4 03/08/20 25 52059-IMTV SKIN LESIONS, OVER 4 06/11/20 25 02108-QFBE SKIN LESIONS, OVER 4 12/20/19 21 78846-DMVY SKIN LESIONS, OVER 4 03/24/20 21 01806-JEGP SKIN LESIONS, OVER 4 06/26/20 21 62687-QSVO SKIN LESIONS, OVER 4 09/25/20 21 04445-AIBY SKIN LESIONS, OVER 4 01/06/20 22 46426-XYRB SKIN LESIONS, OVER 4 04/09/20 22 59167-BUFY SKIN LESIONS, OVER 4 07/16/20 22 42421-ZFMZ SKIN LESIONS, OVER 4 11/05/19 23 68292-AUQU SKIN LESIONS, OVER 4 10/08/20 11 32092-BGPO SKIN LESIONS, OVER 4 01/04/20 12 07806-HUQU SKIN LESIONS, OVER 4 03/28/20 12 65089-SEUT SKIN LESIONS, OVER 4 06/27/20 12 08507-JALR SKIN LESIONS, OVER 4 09/26/20 12 64912-UMHP SKIN LESIONS, OVER 4 07/03/20 13 91491-JCKY SKIN LESIONS, OVER 4 10/02/20 13 66525-EUBI SKIN LESIONS, OVER 4 01/09/20 14 27269-DNEY SKIN LESIONS, OVER 4 04/12/20 14 75872-QJOK SKIN LESIONS, OVER 4 07/16/20 14 55195-QRWG SKIN LESIONS, OVER 4 10/01/20 14 65431-AONX SKIN LESIONS, OVER 4 01/01/20 15 65785-RVMY SKIN LESIONS, OVER 4 04/01/20 15 91587-LMRL SKIN LESIONS, OVER 4 07/01/20 15 36754-YRZH SKIN LESIONS, OVER 4 09/30/20 15 48545-VLKL SKIN LESIONS, OVER 4 12/30/19 16 70954-HPPP SKIN LESIONS, OVER 4 04/06/20 16 19181-FTCO SKIN LESIONS, OVER 4 07/09/20 16 89785-SGCE SKIN LESIONS, OVER 4 10/05/20 16 44158-MMQC SKIN LESIONS, OVER 4 01/05/20 17 60626-XAMB SKIN LESIONS, OVER 4 04/05/20 17 38874-YQYK SKIN LESIONS, OVER 4 07/05/20 17 56395-SXPW SKIN LESIONS, OVER 4 10/04/20 17 28021-UFOS SKIN LESIONS, OVER 4 01/11/20 18 49083-YQKI SKIN LESIONS, OVER 4 01/24/20 19 72686-ALXJ SKIN LESIONS, OVER 4 06/05/20 19 94007-QWUT SKIN LESIONS, OVER 4 09/07/20 19 38743-YNDT SKIN LESIONS, OVER 4 12/07/19 20 03001-LLKR SKIN LESIONS, OVER 4 03/14/20 20 48796-VPCJ SKIN LESIONS, OVER 4 06/17/20 20 62862-YMNP SKIN LESIONS, OVER 4 09/16/20 20 89197-YSLE SKIN LESIONS, 2 TO 4 04/03/20 13 17651-FKYI SKIN LESIONS, 2 TO 4 12/27/19 13 13979-GYNS NAIL(S) 04/03/2013 02295-NHYX NAIL(S) 09/26/2012 53248-IKNG NAIL(S) 12/26/2012 00767-ISGW NAIL(S) 07/03/2013 19669-UERM NAIL(S) 10/02/2013 73580-HVWG NAIL(S) 06/27/2012 96343-VIHO NAIL(S) 03/28/2012 83197-PMAW NAIL(S) 01/04/2012 68244-BQUC NAIL(S) 10/08/2011 30473-NYMM NAIL(S) 09/30/2015 13283-MJYW NAIL(S) 07/01/2015 42967-RTCP NAIL(S) 04/01/2015 71017-SVQF NAIL(S) 12/31/2014 62109-BZMR NAIL(S) 10/01/2014 21446-OJQN NAIL(S) 07/16/2014 69459-MFJR NAIL(S) 04/12/2014 55916-ZTOG NAIL(S) 01/08/2014 99934-XXUZ NAIL(S) 09/16/2020 39986-KZLG NAIL(S) 06/17/2020 00879-TYVA NAIL(S) 03/14/2020 05830-EZWA NAIL(S) 12/07/2019 17275-SBVV NAIL(S) 09/07/2019 23248-LRMM NAIL(S) 06/05/2019 36224-SVBP NAIL(S) 01/23/2019 31924-IABQ NAIL(S) 01/10/2018 15892-KWAU NAIL(S) 10/04/2017 14327-UMQB NAIL(S) 07/05/2017 23437-YJHK NAIL(S) 04/05/2017 09120-VIXS NAIL(S) 01/04/2017 98722-TOZK NAIL(S) 10/05/2016 54768-QKCH NAIL(S) 07/09/2016 87428-IKIW NAIL(S) 04/06/2016 38031-TBTX NAIL(S) 12/30/2015 00754-ZIRT NAIL(S) 11/05/2022 98576-ICIY NAIL(S) 07/16/2022 65953-PLMF NAIL(S) 04/09/2022 24644-RCUE NAIL(S) 01/05/2022 45308-JKNL NAIL(S) 09/25/2021 48699-FUMU NAIL(S) 06/26/2021 81045-TGYG NAIL(S) 03/24/2021 42823-QPPL NAIL(S) 12/19/2020 75580-GUNL NAIL(S) 08/25/2024 14634-PJSV NAIL(S) 04/03/2024 87615-BFTR NAIL(S) 05/24/2023 91796-JBKI NAIL(S) 02/08/2023 75613-WAKK NAIL(S) 09/06/2023 14591-RTFQ NAIL(S) 12/23/2023 X1597-OJHSYEUY DYSTROPHIC NAILS ANY # W6854-WLCKUEPI DYSTROPHIC NAILS ANY # Next Appt Details Provider Name:Monika Rincon , 09/24/2025 01:30:00 PM, [address] [facility], [place], [address], Insurance Providers Payer Name Payer Address Payer Phone Subscriber Number Group Number Insured Name Patient Relationship to Insured Coverage Start Date Coverage End Date Medicare National Govt [facility] [address] [place] [address] [id number] [place], [place] Self - patient is the insured 1 [employer] [address] [place] [address] [phone] [id number] [place], [place] Self - patient is the insured Medical (General) History Medical History History ICD Code mumps measles hypertension chicken pox Arthritis Type 2 diabetes mellitus E11.9 Chronic kidney disease, stage 3 unspecif ied N18.30 Type 2 diabetes mellitus wit h chronic kidney disease, without long-term current use of insulin, unspecified CKD stage E11.22 Type 2 diabetes mellitus with diabetic c hronic kidney disease E11.22 Surgical History Surgery Date(Month/Year) dilatation and curettage 2004 Breast Surgery 12/29/2021 D&C 02/19/22 Hospitalization History Reason Date(Month/Year) [facility] removal polip from uterus
--- OUTSIDE RECORDS SUMMARY | 2025-07-10 12:01 | XMS_ITS | Encounter Summary ---
Author Organization [facility] Address [address] [place] [address] Phone Care Team Providers Care Dental Scheduling Coordinator Name Role Phone Tushar Ruiz MD Primary Care Provider [phone]- [phone] Encounter Details Date Type Department Care Team (Late st Contact Info) Description 01/20/2022 Ancillary Orders [facility],Outside Imaging [address] [place] [address] System, Provider Not In, [place] [address] Social History Tobacco Use Types Packs/Day Years Used Date Smoking Tobacco: Never Assessed Comments Unknown Sex and Gender Information Value Date Recorded Sex Assigned at Not on file Legal Sex Female 2:10 PM EDT Gender Identity Not on file Sexual Orientation Not on file documented as of this encounter Plan of Treatment Not on file documented as of this encounter Results * XR Lower Extremity Outside (No Interpretation) (10/09/2019 12:00 AM EST) Narrative SYSTEMGENERATED, DOCUMENTATION - 01/20/2022 5:51 PM EDT This study is for PACS storage only and not for interpretation. us Provider Not In System PhD IMG OUTSIDE IMAGING W /OUT INTERPRETATION Final Result documented in this encounter Visit Diagnoses Not on filedocumented in this encounter Care Teams Dental Scheduling Coordinator Relationship Specialty Start Date End Date Tushar Ruiz MD [address] [place] [address] PCP - General Internal Medicine 01/14/22 documented as of this encounter Additional Source Comments The information contained in this document represents components of the legal health record. It is not the complete legal health record.[facility]
--- OUTSIDE RECORDS SUMMARY | 2025-07-10 12:01 | XMS_ITS | Encounter Summary ---
Author Organization [facility] Address [address] [place] [address] Phone Care Team Providers Care Boning Room Worker Name Role Phone Tushar Ruiz MD Primary Care Provider +1- [phone] Encounter Details Date Type Department Care Team (Late st Contact Info) Description 01/20/2022 Ancillary Orders [facility],Outside Imaging [address] [place] [address] System, Provider Not In, [place] [address] Social History Tobacco Use Types Packs/Day Years Used Date Smoking Tobacco: Never Assessed Comments Unknown Sex and Gender Information Value Date Recorded Sex Assigned at Not on file Legal Sex Female 2:10 PM EDT Gender Identity Not on file Sexual Orientation Not on file documented as of this encounter Plan of Treatment Not on file documented as of this encounter Results * [place] Other Outside (No Interpretation) (12/29/2021 12:05 AM EDT) Narrative SYSTEMGENERATED, DOCUMENTATION - 01/20/2022 5:42 PM EDT This study is for PACS storage only and not for interpretation. us Provider Not In System PhD IMG OUTSIDE IMAGING W /OUT INTERPRETATION Final Result documented in this encounter Visit Diagnoses Not on filedocumented in this encounter Care Teams Boning Room Worker Relationship Specialty Start Date End Date Tushar Ruiz MD [address] [place] [address] PCP - General Internal Medicine 01/14/22 documented as of this encounter Additional Source Comments The information contained in this document represents components of the legal health record. It is not the complete legal health record.[facility]
--- OUTSIDE RECORDS SUMMARY | 2025-07-10 12:01 | XMS_ITS | Encounter Summary ---
Author Organization [facility] Address [address] [place] [address] Phone Care Team Providers Care Construction Project Assistant Name Role Phone Tushar Ruiz MD Primary Care Provider +1- [phone] Encounter Details Date Type Department Care Team (Late st Contact Info) Description 01/20/2022 Ancillary Orders [facility],Outside Imaging [address] [place] [address] System, Provider Not In, [place] [address] Social History Tobacco Use Types Packs/Day Years Used Date Smoking Tobacco: Never Assessed Comments Unknown Sex and Gender Information Value Date Recorded Sex Assigned at Not on file Legal Sex Female 2:10 PM EDT Gender Identity Not on file Sexual Orientation Not on file documented as of this encounter Plan of Treatment Not on file documented as of this encounter Visit Diagnoses Not on filedocumented in this encounter Care Teams Construction Project Assistant Relationship Specialty Start Date End Date Tushar Ruiz MD [address] [place] [address] PCP - General Internal Medicine 01/14/22 documented as of this encounter Additional Source Comments The information contained in this document represents components of the legal health record. It is not the complete legal health record.[facility]
--- OUTSIDE RECORDS SUMMARY | 2025-07-10 12:01 | XMS_ITS | Encounter Summary ---
Author Organization [facility] Address [address] [place] [address] Phone Care Team Providers Care Mountain Guide Name Role Phone Bridger Plummer MD Primary Care Provider + Encounter Details Date Type Department Care Team (Late st Contact Info) Description 02/18/2023 Telephone [facility] [address] [place] [id number] Pearl Sloan Social History Tobacco Use Types [...] Care Team (Late st Contact Info) Description 10/04/2025 4:15 PM EST Office Visit [facility] [address] [address] Pearl Schmitt ARNP [address] [address] documented as of this encounter Visit Diagnoses Not on filedocumented in this encounter Care Teams Mountain Guide Relationship Specialty Start Date End Date Bridger Plummer MD [address] [facility] [address] [place] [address] PCP - General Internal Medicine 06/04/25 documented as of this encounter
--- OUTSIDE RECORDS SUMMARY | 2025-07-10 12:01 | XMS_ITS | Clinical Summary ---
Author Organization [facility] Address [address] [place] [address] Phone Care Team Providers Care Bacon Skin Lifter Name Role Phone Bridger Plummer MD Primary Care Provider + Allergies Active Allergy Reactions Criticality Noted Date Comments Adhesive Tape Other (see comments),Rash Low 022 Medications letrozole (FEMARA) 2.5 MG chemo tablet Take 2.5 mg by mouth 1 (one) time each day 04/17/2022 Active atorvastatin (LIPITOR) 10 MG tablet Take 1 tablet by mouth Active atenolol (TENORMIN) 50 MG tablet Take 1 tablet by mouth Active Cholecalciferol (Vitamin D3) 50 MCG (2000 UT) tablet Take by mouth Active hydrALAZINE 25 MG tablet Take 25 mg by mouth in the morning and 25 mg in the evening. Active allopurinol (ZYLOPRIM) 100 MG tablet Take 100 mg by mouth 1 (one) time each day Active lisinopril-hydr oCHLOROthiazide (PRINZIDE,ZESTO RETIC) 20-12.5 MG per tabletIndicatio ns:Stage 3a chronic kidney disease (HCC),Hypertens jaylon disorder Take 1 tablet by mouth 1 (one) time each day 90 tablet 3 02/07/2025 Active Active Problems Problem Noted Date Diagnosed [...] Encounters Date Type Department Care Team Description 06/04/2025 1:00 PM EDT Office Visit [facility] [address] [phone] Pearl Schmitt ARNP Chronic kidney disease, stage 4 (severe) (HCC) (Primary Dx); Hypertension; Anemia in chronic kidney disease; Secondary hyperparathyroidism of renal origin (HCC); Renal mass 06/04/2025 Office Communication [facility] [address] [phone] Pearl Schmitt ARNP 05/29/2025 Documentation Only [facility] [address] [phone] Arelis Steve MA 05/13/2025 Orders Only [facility] [address] [phone] Pearl Schmitt ARNP Chronic kidney disease, stage 4 (severe) (HCC); Hypertension; Anemia in chronic kidney disease; Secondary hyperparathyroidism of renal origin (HCC) from Last 3 Months Immunizations Immunization Administration Dates Next Due Pfizer SARS-COV-2 01/28/2021,01/07/2021 [...] Sign Reading Time Taken Comments Blood Pressure 110/70 06/04/2025 1:27 PM EDT Pulse 60 06/04/2025 1:06 PM EDT Temperature - - Respiratory Rate - - Oxygen Saturation 98% 11/11/2023 3:42 PM EST Inhaled Oxygen Concentration - - Weight 81.2 kg (179 lb) 06/04/2025 1:06 PM EDT Height 154.9 cm (5' 1 ) 05/25/2023 3:42 PM EDT Body Mass Index 33.82 05/25/2023 3:42 PM EDT Plan of Treatment Upcoming Encounters Date Type Department Care Team (Late st Contact Info) Description 10/04/2025 4:15 PM EST Office Visit [facility] [address] [phone] Pearl Schmitt ARNP [address] [phone] Health Maintenance Due Date Last Done Comments Pneumococcal Vaccine: 50+ Ye ars (1 of 2 - PCV) 1954 Diabetes: Hemoglobin A1C 04/13/2025 Diabetes: Ophthalmology Exam 04/13/2025 Diabetes: Pedal Pulse Checked 04/13/2025 Diabetes: Sensory Foot Exam 04/13/2025 Diabetes: Visual Foot Exam 04/13/2025 Influenza Vaccine (#1) 2025 Hepatitis B Vaccine Aged Out No longe r eligible based on patient's age to complete this topic Procedures Procedure Name Priority Date/Time Associated Diagnosis Comments ALBUMIN, URINE, RANDOM Routine 05/28/2025 11:24 AM EDT PROTEIN / CREATININE RATIO, URINE Routine 05/28/2025 11:24 AM EDT Chronic kidney disease, stage 4 (severe) (HCC) Hypertension Anemia in chronic kidney disease Secondary hyperparathyroidism of renal origin (HCC) PTH, INTACT (HC) Routine 05/28/2025 10:5 4 AM EDT CALCIUM Routine 05/28/2025 10:54 AM EDT CREATININE, BLOOD Routine 05/28/2025 10: 54 AM EDT BUN Routine 05/28/2025 10:54 AM EDT ELECTROLYTE PANEL Routine 05/28/2025 10: 54 AM EDT CBC AND DIFFERENTIAL Routine 05/28/2025 10:54 AM EDT IRON PANEL (FE, TIBC, TSAT) Routine 05/28/2025 10:54 AM EDT Chronic kidney disease, stage 4 (severe) (HCC) Hypertension Anemia in chronic kidney disease Secondary hyperparathyroidism of renal origin (HCC) FERRITIN Routine 05/28/2025 10:54 AM EDT Chronic kidney disease, stage 4 (severe) (HCC) Hypertension Anemia in chronic kidney disease Secondary hyperparathyroidism of renal origin (HCC) VITAMIN D 25 HYDROXY Routine 05/28/2025 10:54 AM EDT Chronic kidney disease, stage 4 (severe) (HCC) Hypertension Anemia in chronic kidney disease Secondary hyperparathyroidism of renal origin (HCC) EXT RESULT ENTRY Routine 05/28/2025 from Last 3 Months Results * (ABNORMAL) Urine Protein / creatinine ratio (05/28/2025 11:24 AM EDT) Protein Urine Random 15(H) <12 mg/dL See order comments Protein/Creatin ine Ratio, Urine 0.14 <0.2 See order comments Comment: The spot urine protein:creatinine ratio may increase to 0.3 during normal . Urine specimen (specimen) Urine specimen obtained by clean catch procedure / Unknown 05/28/2025 11:24 AM EDT 05/28/2025 11:24 AM EDT [facility] LAB URINE ORDERABLES Final Result Performing Organization Address [facility] de Phone Number HOLRADHA See order comments [place] [address] * (ABNORMAL) Albumin, urine, random (05/28/2025 11:24 AM EDT) Creatinine, Urine 104.96 mg/dL Se e order comments Urine Microalbumin 54.0 mg/L See order comments Microalbumin/Crea tinine Ratio 51.4(H) <30 ug/mg cr See order comments Comment: Albumin/Creatinine Ratio Reference Ranges: Normal: < 30 ug/mg creatinine Microalbuminuria: 30 - 300 ug/mg creatinine Clinical Albuminuria: > 300 ug/mg creatinine 05/28/2025 11:2 4 AM EDT 05/28/2025 11:24 AM EDT [facility] LAB URINE ORDERABLES Final Result Performing Organization Address [facility] de Phone Number HOLBRITTANY See order comments [place] [address] * (ABNORMAL) Creatinine (05/28/2025 10:54 AM EDT) Creatinine Serum 2.20(H) 0.5 - 1.4 mg/dL See order comments eGFR (Calc) 21 See orde r comments Comment: Chronic Kidney Disease: Estimated GFR < 60 mL/min/1.73m2 Severe Kidney Disease: Estimated GFR < 15 mL/min/1.73m2 05/28/2025 10:5 4 AM EDT 05/28/2025 10:54 AM EDT [facility] LAB BLOOD ORDERABLES Final Result Performing Organization Address [facility] de Phone Number HOLBRITTANY See order comments [place] [address] * (ABNORMAL) PTH, Intact (05/28/2025 10:54 AM EDT) Parathyroid Hormone, Intact 203.8(H) 8.7 - 77.1 pg/mL See order comments 05/28/2025 10:5 4 AM EDT 05/28/2025 10:54 AM EDT [facility] LAB HISTORICAL-CONVERSIONS- UNSOLICITED RESULTS Final Result Performing Organization Address [facility] Co de Phone Number [place] See order comments [place] [address] * (ABNORMAL) Iron Panel (Fe, TIBC, TSAT) (05/28/2025 10:54 AM EDT) Pathologist [facility] Iron 57 30 - 160 mcg/dL See order comments TIBC 175(L) 228 - 428 mcg/dL See order comments Iron Saturation (TSat) 33 15 - 50 % See order comments UIBC 118 ug/dL See order comments Blood specimen (specimen) Venous blood / Unknown 05/28/2025 10:54 AM EDT 05/28/2025 10:54 AM EDT [facility] LAB BLOOD ORDERABLES Final Result Performing Organization Address [facility] de Phone Number [facility] See order comments [place] [address] * Vitamin D 25 hydroxy (05/28/2025 10:54 AM EDT) Pathologist [facility] Vitamin D, 25-Hydroxy 43.4 >30 ng/mL See order comments Comment: Health Based Reference Values* < 20 ng/mL Deficient 20-30 ng/mL Insufficient > 30 ng/mL Sufficient *Belinda HOUSTON. N Engl J Med. 2007;357:266-280 There is no well-established upper level of normal vitamin D levels. Some laboratories use 50 ng/mL as an upper limit of normal. However, toxicity is patient-dependent and may occur at any level. Careful correlation with the patient's presentation is necessary and, if there is concern for vitamin D toxicity, treatment should be considered irrespective of the serum level. Care must be taken in interpreting Vitamin D results from different laboratories and methodologies. Published data demonstrated that results from patients undergoing hemodialysis may show a negative bias when tested with various automated 25-OH vitamin D assays when compared to LC-MS/MS. When testing samples from patients whose predominant form of Vitamin D is Vitamin D2, such as patients receiving Vitamin D2 supplementation, results that are subtherapeutic should be confirmed with another method such as LC-MS/MS. Blood specimen (specimen) Venous blood / Unknown 05/28/2025 10:54 AM EDT 05/28/2025 10:54 AM EDT Pearl Schmitt [facility] LAB BLOOD ORDERABLES Final Result FAY See order comments [place] [address] * (ABNORMAL) CBC and Differential (05/28/2025 10:54 AM EDT) WBC 5.6 4.8 - 10.8 X10*3/uL See order comments RBC 4.03(L) 4.20 - 5.50 X10*6/uL See order comments Hgb 11.6(L) 12.0 - 16.0 g/dl See order comments Hematocrit 38.1 37.0 - 47.0 % See order comments MCV 94.5 80.0 - 98.0 fL See order comments MCH 28.8 27.0 - 33.0 pg See order comments MCHC 30.4(L) 31.0 - 35.0 g/dl See order comments RDW 15.2 11.0 - 16.0 % See order comments Platelets 171 160 - 400 X10*3/uL See order comments MPV 11.0 9.4 - 12.3 fL See order comments Neutrophils % Auto 65.0 45 - 73 % See order comments Immature Granulocytes 0.9(H) 0.0 - 0.4 % See order comments Lymphocytes Relative 24.5 20 - 40 % See order comments Monocytes 6.4 2 - 11 % See order comments Eosinophils Relative 2.7 0 - 4 % See order comments Basophils Relative 0.5 0 - 2 % See order comments nRBC Count 0.0 0.0 - 0.2 /100WBC See order comments Neutrophils Absolute 3.7 2.0 - 8.3 x10*3/uL See order comments Immature Grans (Absolute) 0.05(H) 0.00 - 0.03 X10*3/uL See order comments Lymphocytes Absolute 1.4 1.2 - 4.9 X10*3/uL See order comments Monocytes Absolute 0.4 0.1 - 1.2 X10*3/uL See order comments Eosinophils Absolute 0.2 0.0 - 0.4 X10*3/uL See order comments Basophils Absolute 0.0 0.0 - 0.2 X10*3/uL See order comments NRBC Absolute 0.000 0.0 - 0.012 X10*3/uL See order comments 05/28/2025 10:5 4 AM EDT 05/28/2025 10:54 AM EDT [employer] LAB BLOOD ORDERABLES Final Result Performing Organization Address [facility] de Phone Number [place] See order comments [place] [address] * (ABNORMAL) BUN (05/28/2025 10:54 AM EDT) BUN 54(H) 9 - 16 mg/dL See order comments 05/28/2025 10:5 4 AM EDT 05/28/2025 10:54 AM EDT [employer] [facility] LAB BLOOD ORDERABLES Final Result Performing Organization Address [facility] de Phone Number [place] See order comments [place] [address] * (ABNORMAL) Ferritin (05/28/2025 10:54 AM EDT) Ferritin 539(H) 10 - 250 ng/mL See order comments Blood specimen (specimen) Venous blood / Unknown 05/28/2025 10:54 AM EDT 05/28/2025 10:54 AM EDT Pearl Flattr [facility] LAB BLOOD ORDERABLES Final Result Performing Organization Address [facility] Phone Number [facility] See order comments [place] [address] * Calcium (05/28/2025 10:54 AM EDT) Calcium 10.2 8.4 - 10.2 mg/dL See order comments 05/28/2025 10:5 4 AM EDT 05/28/2025 10:54 AM EDT [facility] LAB BLOOD ORDERABLES Final Result [facility] See order comments [place] [address] * Electrolyte panel (05/28/2025 10:54 AM EDT) Sodium 143 135 - 145 mmol/L See order comments Potassium 4.3 3.3 - 5.1 mmol/L See order comments Chloride 108 96 - 108 mmol/L See order comments Bicarbonate (CO2) 26 22 - 29 mmol/L See order comments Anion Gap 13 12 - 20 See order comments 05/28/2025 10:5 4 AM EDT 05/28/2025 10:54 AM EDT [facility] LAB BLOOD ORDERABLES Final Result Performing Organization Address City/[facility]/ZIP Co de Phone Number [facility] See order comments [place] [address] * (ABNORMAL) EXT RESULT ENTRY (05/28/2025) Hemoglobin 11.6(A) 12.0 - 16.0 Hematocrit 38.1 36.0 - 46.0 Platelets 171 150 - 399 10*3/UL Iron 57 UG/DL Iron Saturation (TSat) 33 % TIBC 175 ug/dL UIBC (EXTERNAL RESULT ENTRY) 118 Ferritin 539.0(A) 9.0 - 150.0 NG/ML Sodium 143 137 - 147 Potassium 4.3 3.4 - 5.5 Carbon Dioxide 26 mmol/L BUN 54(A) 4 - 21 mg/dL Creatinine 2.20(A) 0.50 - 1.10 mg/dL Calcium 10.2 8.7 - 10.7 mg/dL eGFR Non-Afr Algerian 21 Vitamin D, 25-OH, Total 43.4 ng/mL Protein Urine Random 15 Creatinine, Urine Random 104.96 mg/dL Urine Protein/Creatin ine Ratio 0.14 mg/g creat 05/28/2025 us Historical Provider LAB BLOOD ORDERABLES Lyric l Result from Last 3 Months Insurance Medicare [facility] Medicare [facility] Care Teams Bacon Skin Lifter Relationship Specialty Start Date End Date Bridger Plummer MD [address] [address] PCP - General Internal Medicine 06/04/25
--- OUTSIDE RECORDS SUMMARY | 2025-07-10 12:01 | XMS_ITS | Encounter Summary ---
Author Organization [facility] Address [address] [place] [address] Phone Care Team Providers Care Mineralogy Professor Name Role Phone Tushar Ruiz MD Primary Care Provider [phone]- [phone] Encounter Details Date Type Department Care Team (Late st Contact Info) Description 01/20/2022 Ancillary Orders [facility],Outside Imaging [address] [place] [address] System, Provider Not In, [place] [address] Social History Tobacco Use Types Packs/Day Years [...] encounter Results * Mammogram Outside (No Interpretation) (12/04/2021 12:00 AM EST) Narrative SYSTEMGENERATED, DOCUMENTATION - 01/20/2022 5:49 PM EDT This study is for PACS storage only and not for interpretation. us Provider Not In System PhD IMG OUTSIDE IMAGING W /OUT INTERPRETATION Final Result documented in this encounter Visit Diagnoses Not on filedocumented in this encounter Care Teams Mineralogy Professor Relationship Specialty Start Date End Date Tushar Ruiz MD [address] [place] [address] PCP - General Internal Medicine 01/14/22 documented as of this encounter Additional Source Comments The information contained in this document represents components of the legal health record. It is not the complete legal health record.[facility]
--- OUTSIDE RECORDS SUMMARY | 2025-07-10 12:01 | XMS_ITS | Encounter Summary ---
Author Organization [facility] Address [address] [place] [address] Phone Care Team Providers Care Desizing Pad Operator Name Role Phone Tushar Ruiz MD Primary Care Provider [phone]- [phone] Encounter Details Date Type Department Care Team (Late st Contact Info) Description 01/20/2022 Ancillary Orders [facility],Outside Imaging [address] [place] [address] System, Provider [place] In, [place] [address] Social History Tobacco Use Types Packs/Day Years [...] encounter Results * Mammogram Outside (No Interpretation) (12/10/2021 12:00 AM EST) Narrative SYSTEMGENERATED, DOCUMENTATION - 01/20/2022 5:47 PM EDT This study is for PACS storage only and not for interpretation. us Provider Not In System PhD IMG OUTSIDE IMAGING W /OUT INTERPRETATION Final Result documented in this encounter Visit Diagnoses Not on filedocumented in this encounter Care Teams Desizing Pad Operator Relationship Specialty Start Date End Date Tushar Ruiz MD [address] [place] [address] PCP - General Internal Medicine 01/14/22 documented as of this encounter Additional Source Comments The information contained in this document represents components of the legal health record. It is not the complete legal health record.[facility]
--- OUTSIDE RECORDS SUMMARY | 2025-07-10 12:01 | XMS_ITS | Clinical Summary ---
Author Organization [facility] Address [address] [place] [address] Phone Care Team Providers Care Purchasing Engineer Name Role Phone Tushar Ruiz MD Primary Care Provider +1- [phone] Allergies Active Allergy Reactions Criticality Noted Date Comments Adhesive Tape-Silicones Maculopapular Rash 04/2022 Medications atenolol (TENORMIN) 50 mg tablet Take 50 mg by mouth daily. 11/14/2021 Active atorvastatin (LIPITOR) 10 MG tablet Take 10 mg by mouth daily. 12/22/2021 Active lisinopril (PRINIVIL,ZESTRIL ) 10 MG tablet Take 10 mg by mouth daily. 11/14/2021 Active therapeutic multivitamin tablet Take 1 tablet by mouth daily. Active ascorbic acid, vitamin C, (VITAMIN C) 500 MG tablet Take 500 mg by mouth 2 (two) times a day. Active cholecalciferol (VITAMIN D3) 2,000 unit tablet Take 1,000 Units by mouth daily. Active Active Problems Problem Noted Date Diagnosed Date Malignant neoplasm of upper- outer quadrant of right breast in female, estrogen receptor positive 01/23/2022 Social History Tobacco Use Types Packs/Day Years Used Date Smoking Tobacco: Never Assessed Education Answer Date Recorded Are you interested in more education? Not on escobar e 02/13/2023 Are you concerned about learning? Not on file 02/13/2023 No 02/13/2023 No 02/13/2023 Digital Access Answer Date Recorded No 03/14/2023 No 03/14/2023 No 03/14/2023 Reliable internet access at home? Not on file 03/14/2023 Device with a working camera? Not on file Comments Unknown Sex and Gender Information Value Date Recorded Sex Assigned at Not on file Legal Sex Female 2:10 PM EDT Gender Identity Not on file Sexual Orientation Not on file Last Filed Vital Signs Vital Sign Reading Time Taken Comments Blood Pressure 185/74 01/23/2022 11:16 AM EDT Pulse 66 01/23/2022 11:16 AM EDT Temperature - - Respiratory Rate - - Oxygen Saturation 97% 01/23/2022 11: 16 AM EDT Inhaled Oxygen Concentration - - Weight 79.3 kg (174 lb 12.8 oz) 022 11:16 AM EDT Height - - Body Mass Index - - Plan of Treatment Health Maintenance Due Date Last Done Comments Adult Td,Tdap Booster 1935 CREATININE LEVEL 1935 POTASSIUM LEVEL 1935 DEPRESSION SCREENING 1948 PNEUMOCOCCAL VACCINES (50+ years) (1 of 2 - PCV) 1955 ZOSTER VACCINES (1 of 2) 1955 OSTEOPOROSIS SCREENING INITI AL (ONE-TIME) 2001 RSV VACCINE (1 - 1-dose 75+ series) 2011 INFLUENZA VACCINE (#1) 2025 COVID-19 VACCINE (3 - 2024-2 6 season) 2025 01/28/2021, 01/07/2021 HEPATITIS A VACCINES Aged Out No long er eligible based on patient's age to complete this topic HIB VACCINES Aged Out No longer eligi ble based on patient's age to complete this topic MENINGOCOCCAL VACCINES (ACWY) Aged Out No longer eligible based on patient's age to complete this topic MENINGOCOCCAL VACCINES (B) Aged Out N o longer eligible based on patient's age to complete this topic Medical Devices Not on file Insurance MEDICARE PART A & B Member Subscriber Plan / Payer (Ef fective 2001-Present) Name:Blanca Tse Member ID:[id number] Relation to Subscriber:Self Name:Blanca Tse Subscriber ID:[id number] Payer ID:[id number] Group ID:Not on file Type:Medicare Address: [place] [address] [place] [id number] [employer] MEDEX SUPPLEMENT MEDICARE PART A & B [employer] SUPPLEMENT MEDICARE PART A & B [employer] MEDEX SUPPLEMENT MEDICARE PART A & B [employer] MEDEX SUPPLEMENT MEDICARE PART A & B [employer] MEDEX SUPPLEMENT MEDICARE PART A & B [employer] MEDEX SUPPLEMENT MEDICARE PART A & B [employer] MEDEX SUPPLEMENT MEDICARE PART A & B [employer] MEDEX SUPPLEMENT [employer] MEDEX SUPPLEMENT Advance Directives For more information, please contact: [phone] (9AM - 5PM [facility], Wednesday-Wednesday) Documents on File Type Date Recorded Patient Metalizing Supervisor Expl anation Healthcare Proxy 01/23/2022 healthcare Proxy Care Teams Purchasing Engineer Relationship Specialty Start Date End Date Tushar Ruiz MD [address] [place] [address] PCP - General Internal Medicine 01/14/22 Additional Source Comments The information contained in this document represents components of the legal health record. It is not the complete legal health record.[facility]
--- OUTSIDE RECORDS SUMMARY | 2025-07-10 12:01 | XMS_ITS | Encounter Summary ---
Author Organization [facility] Address [address] [place] [address] Phone Care Team Providers Care Tutorial Laboratory Supervisor Name Role Phone Tushar Ruiz MD Primary Care Provider +1- [phone] Encounter Details Date Type Department Care Team (Late st Contact Info) Description 01/20/2022 Ancillary Orders [facility],Outside Imaging [address] [place] [address] System, Provider Not In, [place] [address] Social History Tobacco Use Types Packs/Day Years [...] on filedocumented in this encounter Care Teams Tutorial Laboratory Supervisor Relationship Specialty Start Date End Date Tushar Ruiz MD [address] [place] [address] PCP - General Internal Medicine 01/14/22 documented as of this encounter Additional Source Comments The information contained in this document represents components of the legal health record. It is not the complete legal health record.[facility]
--- OUTSIDE RECORDS SUMMARY | 2025-07-10 12:01 | XMS_ITS | Encounter Summary ---
Author Organization [facility] Address [address] [place] [address] Phone Care Team Providers Care Power Electronics Engineer Name Role Phone Tushar Ruiz MD Primary Care Provider +1- [phone] Encounter Details Date Type Department Care Team (Late st Contact Info) Description 01/20/2022 Ancillary Orders [facility],Outside Imaging [address] [place] [address] System, Provider Not In, [place] [address] Social History Tobacco Use Types Packs/Day Years [...] encounter Results * Mammogram Outside (No Interpretation) (12/12/2021 12:05 AM EST) Narrative SYSTEMGENERATED, DOCUMENTATION - 01/20/2022 5:45 PM EDT This study is for PACS storage only and not for interpretation. us Provider Not In System PhD IMG OUTSIDE IMAGING W /OUT INTERPRETATION Final Result documented in this encounter Visit Diagnoses Not on filedocumented in this encounter Care Teams Power Electronics Engineer Relationship Specialty Start Date End Date Tushar Ruiz MD [address] [place] [id number] PCP - General Internal Medicine 01/14/22 documented as of this encounter Additional Source Comments The information contained in this document represents components of the legal health record. It is not the complete legal health record.[facility]
--- OUTSIDE RECORDS SUMMARY | 2025-07-10 12:01 | XMS_ITS | Encounter Summary ---
Author Organization [facility] Address [address] [place] [phone] Phone Care Team Providers Care Sales Process Manager Name Role Phone Tushar Ruiz MD Primary Care Provider [phone] Encounter Details Date Type Department Care Team (Late st Contact Info) Description 01/20/2022 Ancillary Orders [facility],Outside Imaging [address] [place] [address] System, Provider Not In, [place] [address] Social History Tobacco Use Types Packs/Day Years [...] encounter Results * Mammogram Outside (No Interpretation) (09/13/2019 12:00 AM EST) Narrative SYSTEMGENERATED, DOCUMENTATION - 01/20/2022 5:52 PM EDT This study is for PACS storage only and not for interpretation. us Provider Not In System PhD IMG OUTSIDE IMAGING W /OUT INTERPRETATION Final Result documented in this encounter Visit Diagnoses Not on filedocumented in this encounter Care Teams Sales Process Manager Relationship Specialty Start Date End Date Tushar Ruiz MD [address] [place] [id number] PCP - General Internal Medicine 01/14/22 documented as of this encounter Additional Source Comments The information contained in this document represents components of the legal health record. It is not the complete legal health record.[facility]
== END 2025-07-10 09:59 | disposition home or self-care (01) ==
LOC: HO.US 09:58
PROVIDERS: Visit Provider General Practice
DX: D41.01 Neoplasm of uncertain behavior of right kidney (principal)
CPT/HCPCS: 76770

== ENCOUNTER → 2025-07-10 10:11 | Outpatient (BNV) | payer MEDICARE, SELFPAY | PROVIDERS: Visit Provider Radiology Diagnostic Radiology | DX: D49.511 Neoplasm of unspecified behavior of right kidney (principal) | CPT/HCPCS: 76770 ==

== ENCOUNTER 2025-09-24 11:14 | Outpatient (REF) | payer MEDICARE, SELFPAY ==
[2025-09-24 11:34] LABS: MANUAL DIFF FLAG NO
[2025-09-24 11:56] LABS: Hematocrit 38.7 % (37.0-47.0); Hemoglobin 12.2 g/dl (12.0-16.0); Imm Gran Abs Auto 0.04 X10*3/uL (0.00-0.03); Imm Gran Pct Auto 0.5 % (0.0-0.4); Lymphocytes Absolute Auto 1.7 X10*3/uL (1.2-4.9); Mean Corpuscular HGB Conc 31.5 g/dl (31.0-35.0); Mean Corpuscular Hemoglobin 29.4 pg (27.0-33.0); Mean Corpuscular Volume 93.3 fL (80.0-98.0); NRBC Abs Auto 0.000 X10*3/uL (0.0-0.012); NRBC Pct Auto 0.0 /100WBC (0.0-0.2); Platelet Count 180 X10*3/uL (160-400); Red Blood Count 4.15 X10*6/uL (4.20-5.50); White Blood Count 7.8 X10*3/uL (4.8-10.8)
[2025-09-24 12:32] LABS: Parathyroid Hormone Intact 245.6 pg/mL (8.7-77.1)
[2025-09-24 12:39] LABS: Albumin Level 4.4 g/dL (3.5-5.0); Anion Gap 11 (12-20); Blood Urea Nitrogen 55 mg/dL (9-16); Calcium 10.8 mg/dL (8.4-10.2); Carbon Dioxide 25 mmol/L (22-29); Chloride 108 mmol/L (96-108); Magnesium 2.1 mg/dL (1.6-2.6); Potassium 4.3 mmol/L (3.3-5.1); Sodium 140 mmol/L (135-145)
== END 2025-09-24 11:15 | disposition home or self-care (01) ==
LOC: HO.LAB 11:14
PROVIDERS: PCP Internal Medicine; Visit Provider Internal Medicine Nephrology
DX: I12.9 Hypertensive chronic kidney disease with stage 1 through stage 4 chronic kidney disease, or unspecified chronic kidney disease (principal); N18.4 Chronic kidney disease, stage 4 (severe); N25.81 Secondary hyperparathyroidism of renal origin; D63.1 Anemia in chronic kidney disease
CPT/HCPCS: 36415; 80069; 83735; 83970; 85025

== ENCOUNTER 2025-09-25 09:45 | Outpatient (REF) | payer MEDICARE, SELFPAY ==
[2025-09-25 11:51] LABS: Microalbum/Creatinine Ratio Ur 24.6 ug/mg cr (<30); Total Protein Urine Random < 7 mg/dL (<12)
== END 2025-09-25 09:46 | disposition home or self-care (01) ==
LOC: HO.LAB 09:45
PROVIDERS: PCP Internal Medicine; Visit Provider Internal Medicine Nephrology
DX: I12.9 Hypertensive chronic kidney disease with stage 1 through stage 4 chronic kidney disease, or unspecified chronic kidney disease (principal); N18.4 Chronic kidney disease, stage 4 (severe); N25.81 Secondary hyperparathyroidism of renal origin
CPT/HCPCS: 82043; 82570; 84156